=== PATIENT | male | born 1955 | race Caucasian/White ===

== ENCOUNTER 2016-06-30 18:50 | Observation (INO) ==
--- NOTE | 2016-06-30 19:04 | Emergency Department Note ---
Disposition Clinical Impression: Cocaine abuse Chest pain Qualifiers: Chest pain type: other chest pain Qualified Code(s): R07.89 - Other chest pain ; R07.8 - Other chest pain Disposition: Admitted As Inpatient Condition: Fair [facility]Primary Care Provider[facility] - Forms: ED Satisfaction Letter Chest Pain HPI - General Chief Complaint: ED Chest Pain Stated Complaint: CP Time Seen by Provider: 06/30/16 19:00 Source: patient, EMS Limitations: no limitations Vital Signs Reviewed: Yes Nursing Notes Reviewed: Yes - History of Present Illness HPI Narrative: I did see the patient immediately upon arrival and also spoke with the paramedics. The patient presents with complaints of chest pain which is intermittent for the last several days lasting for several seconds at a time and is sharp and midsternal with radiation to left shoulder but no pleuritic aspect. Pain is sometimes worse with exertion. No diaphoresis. He does not have radiation straight through to the back. He has been using cocaine and he does injected into the right arm was actually here and discharged 4 days ago after treatment for infection and the right arm for injecting cocaine. States has not used since that time. Social history: No alcohol. Family history: Positive for diabetes and heart disease Severity scale (1-10): 3 - Related Data Home Medications Medication Instructions Recorded Confirmed Aspirin 81 mg PO QAM 10/27/14 11/25/14 Lisinopril [Zestril] 5 mg PO QPM 10/27/14 11/25/14 Metoprolol [Lopressor] 25 mg PO BID 10/27/14 11/25/14 Simvastatin [Zocor] 20 mg PO QPM 10/27/14 11/25/14 Previous Rx's Medication Instructions Recorded OxyCODONE/APAP 5/325 [Percocet 1 each PO Q4H PRN #10 tablet 11/25/14 5/325] Phenazopyridine [Pyridium] 200 mg PO TID PRN #20 tablet 11/25/14 Benztropine [Cogentin] 1 mg PO BID #6 tablet 04/24/16 ChlorproMAZINE [Thorazine] 25 mg PO BID PRN #6 tablet 04/24/16 Ranitidine HCl [Zantac] 150 mg PO DAILY #30 tablet 04/24/16 Cephalexin [Keflex] 500 mg PO TID #21 capsule 06/26/16 Ibuprofen [Motrin] 600 mg PO Q8HR #21 tablet 06/26/16 Allergies Allergy/AdvReac Type Severity Reaction Status Date / Time Amoxicillin [From Augmentin] Allergy Mild Rash Verified 06/26/16 20:22 clavulanic acid Allergy Mild Rash Verified 06/26/16 20:22 [From Augmentin] Review of Systems: Constitutional: No fever Vision: No blurred vision ENT: No rhinorrhea Respiratory: No cough Allergic: No allergies : No blood in urine GI: No blood in stool Hematologic: No bruising Dermatologic: No skin rash Musculoskeletal: + pain in the extremities Neuro: No numbness of the extremities Chest Pain PMH - Past Medical History Medical history: Reports: coronary artery disease, diabetes, hypertension, myocardial infarction, renal disease, other Surgical history: Reports: other Psychiatric history: Reports: depression - Social History Smoking Status: Never smoker Alcohol use: Reports: none Drug use: Reports: cocaine, IVDU Physical Exam CONSTITUTIONAL: Well-appearing; well-nourished; A&O X 3, in no apparent distress HEAD: Normocephalic; atraumatic EYES: PERRL, no scleral icterus NOSE: The nose is normal in appearance without rhinorrhea NECK: No JVD or distended neck veins RESP: Normal chest excursion with respiration; breath sounds clear and equal bilaterally; no wheezes, rhonchi, or rales CARD: Regular rhythm, without murmurs, rub or gallop ABD: Non-distended; non-tender, soft, without rigidity, rebound or guarding,no pulsatile mass CHEST: No pain with palpation SKIN: Normal for age and race; warm and dry without diaphoresis ; no apparent lesions EXTREMITIES: Pulses are 2 plus and equal times 4 extremities, no peripheral edema or calf muscle pain. Examination of the right arm does show a hardened area on the right forearm on the volar aspect but no overlying erythema or crepitus or ecchymosis. States is significantly improved compared to when he was discharged. - General Limitations: no limitations General appearance: alert, in no apparent distress Course Vital Signs Temperature 98.6 F 06/30/16 18:51 Pulse Rate 73 06/30/16 18:51 Respiratory Rate 20 06/30/16 18:51 Blood Pressure 170/93 06/30/16 18:51 O2 Sat by Pulse Oximetry 97 06/30/16 18:51 Temperature 98.6 F 06/30/16 18:51 Pulse Rate 71 06/30/16 20:07 Respiratory Rate 18 06/30/16 20:07 Blood Pressure 155/79 06/30/16 20:07 O2 Sat by Pulse Oximetry 95 06/30/16 20:07 Oxygen Delivery Oxygen Delivery Nasal Cannula Chest Pain - MDM Narrative Medical decision making narrative: Labs including troponin, chest x-ray, the patient will be observed. I did review his EKG showing normal sinus rhythm with a rate of 69 without acute ischemic change. 190 I did review the patient's labs with negative troponin. Concern is the cocaine and chest pain and intermittent nature of the pain. I did speak with Dr. Floyd who is the hospitalist who accepts the patient for admission. Chest x-ray does not show acute change but does show some atelectasis. 2011 - Medical Records Medical records reviewed: Yes I reviewed the patient's medical records. - Lab Data Lab results reviewed: Yes I reviewed the patient's lab results. Result diagrams: 06/30/16 19:32 06/30/16 19:32 Lab Results 06/30/16 06/30/16 06/30/16 Range/Units 19:32 19:32 19:32 WBC 6.1 (4.3-11.1) K/mcL RBC 5.59 H (4.19-5.50) M/mcL Hgb 11.0 L (12.9-16.9) g/dL Hct 34.4 L (37.5-50.1) % MCV 61.5 L (83.0-100.0) fL MCH 19.7 L (28.0-33.3) pg MCHC 32.0 (31.6-35.5) g/dL RDW 18.4 H (11.5-14.5) % Plt Count 158 (140-400) K/mcL MPV 11.0 (9.4-12.4) fL Immature Plt Fraction 5.6 (1.1-6.1) % Sodium 135 L (136-145) mEq/L Potassium 4.1 (3.5-4.5) mEq/L Chloride 103 (98-109) mEq/L Carbon Dioxide 24 (19-29) mEq/L BUN 29 H (8-26) mg/dL Creatinine 1.31 H (0.72-1.25) mg/dL Est GFR ( Amer) > 60 (> 60) Est GFR (Non-Af Amer) 55 L (> 60) BUN/Creatinine Ratio 22 (6-26) Glucose 254 H (70-99) mg/dL Calculated Osmolality 294 (280-300) Calcium 8.4 L (8.6-10.8) mg/dL Troponin I 0.00 (0-0.03) ng/mL - Radiology Data Chest X-Ray 06/30/16 19:00 IMPRESSION: Linear atelectasis or scarring in the left lung base. Otherwise no acute cardiopulmonary findings. D/ / Sarah Multani MD / Sarah Multani MD Interpreting Provider: Sarah Multani MD I think it is right over there is a 20 is a 31 - EKG Data EKG attestation: Yes I reviewed and interpreted this EKG.
[2016-06-30 19:50] LABS: Basophils # 0.1 K/mcL (0.0-0.2); Basophils % 0.8 %; Eosinophils # 0.2 K/mcL (0.0-0.6); Eosinophils % 3.1 %; Hematocrit 34.4 % (37.5-50.1); Immature Platelets 5.6 % (1.1-6.1); Mean Corpuscular Hemoglobin 19.7 pg (28.0-33.3); Mean Corpuscular Volume 61.5 fL (83.0-100.0); Monocytes % 15.7 %; Platelet Count 158 K/mcL (140-400); Red Blood Count 5.59 M/mcL (4.19-5.50); Red Cell Distribution Width 18.4 % (11.5-14.5); Segmented Neutrophils % 63.4 %
[2016-06-30 19:51] LABS: Neutrophils # 3.9 K/mcL (1.6-8.9)
[2016-06-30 19:59] LABS: BUN/Creatinine Ratio 22 (6-26); Blood Urea Nitrogen 29 mg/dL (8-26); Calcium 8.4 mg/dL (8.6-10.8); Carbon Dioxide 24 mEq/L (19-29); Chloride 103 mEq/L (98-109); Glucose 254 mg/dL (70-99); Osmolality,Calculated 294 (280-300); Potassium 4.1 mEq/L (3.5-4.5); Sodium 135 mEq/L (136-145); eGFR For African Americans > 60 (> 60); eGFR For Non-African Americans 55 (> 60)
[2016-06-30 20:13] LABS: Microcytosis Present (Not Present); Platelet Estimate Normal (Normal)
[2016-06-30 20:15] LABS: Hypochromasia Present (Not Present); Ovalocytes 1+ (Not Present); Tear Drop Cells 1+ (Not Present)
[2016-06-30] MEDS ORDERED: Naloxone 0.4 MG/ML INJ IVP PRN (21:14)
[2016-06-30] MEDS ORDERED: D5% in Water 1,000 ML IVC PRN (21:48)
[2016-06-30] MEDS ORDERED: *HR* Dextrose 50 % in Water (Syg) 50 ML SYRINGE IVP PRN (21:48)
[2016-06-30] MEDS ORDERED: Dextrose Gel 15 GM PO PRN ×2 (21:48)
--- NOTE | 2016-06-30 21:56 | Internal Med History&Physical ---
<Yadi Mckinley - Last Filed: 06/30/16 22:57> Date of Encounter: 06/30/16 Time of Encounter: 21:51 Assessment and Plan (1) Chest pain Current visit: Yes Status: Acute 1she has been experiencing intermittent chest pain for proximally 2 days. Patient has recently been using cocaine as well he does have a past cardiac history with stent placement. patient states he used cocaine 4 days ago, unsure if this is accurate we will obtain tox screen. First cardiac troponin is negative we will continue to cycle cardiac troponins 2 continuous cardiac monitoring 3 nitroglycerin as needed for chest pain 4 oxygen as needed to maintain SPO2 greater 92% 5 we will obtain a lipid profile in a.m. 6 obtain cardiac echo 7 patient will be nothing by mouth for possible testing in am- 8 consult cardiology as needed 9 continue with aspirin- he had 2 baby aspirin today on the squad 10 will initiate on Lovenox since patient continues to have chest pain Qualifiers: Chest pain type: unspecified Qualified Code(s): R07.9 - Chest pain, unspecified (2) Cocaine abuse Current visit: Yes Status: Acute 1 patient has used cocaine 4 days ago he started to experience intermittent chest pain 2 days ago. Discussed with patient his cocaine use he states that he does not use all the time he has not used in several years and that he only uses when he is depressed. Discussed with patient the use of cocaine and cardiac dangers particularly since patient has a pre-existing cardiac disease. Patient verbalized understanding asked patient if he needed help with his drug use he states no. 2 continuous cardiac monitoring (3) Coronary artery disease Current visit: Yes Status: Acute 1 patient has a history of coronary artery disease with 2 drug-eluting stents. Patient has recently been using cocaine. He is presently on beta susana LIZABETH statin. Will continue with the aspirin plavix statin hold beta susana due to cocaine use. 2 nitroglycerin as needed for chest pain 3 oxygen as needed maintain a spo2 greater than 92% 4 continuous cardiac monitoring Qualifiers: Coronary Disease-Associated Artery/Lesion type: jena artery [place] vs. transplanted heart: jena heart Associated angina: angina presence unspecified Qualified Code(s): I25.10 - Atherosclerotic heart disease of jena coronary artery without angina pectoris (4) Hypertension Current visit: Yes Status: Acute 1we will continue with home medication however will hold beta susana due to recent cocaine use Qualifiers: Hypertension type: essential hypertension Qualified Code(s): I10 - Essential (primary) hypertension (5) Superficial thrombophlebitis Current visit: No Status: Acute Patient was seen in the ER on Monday as diagnosed superficial thrombosed phlebitis secondary to IV injection of cocaine. We will continue with Keflex. Qualifiers: Superficial thrombophlebitis-Involved body area: upper extremity Laterality : right Qualified Code(s): I80.8 - Phlebitis and thrombophlebitis of other sites (6) Diabetes Current visit: No Status: Chronic 1 Accu-Cheks before meals and at bedtime with sliding scale insulin 2 diabetic diet Qualifiers: Diabetes mellitus type: type 2 Diabetes mellitus complication status: with kidney complications Diabetes mellitus complication detail: with chronic kidney disease Diabetes mellitus snf insulin use: with snf use Chronic kidney disease stage: stage 3 (moderate) Qualified Code(s): E11.22 - Type 2 diabetes mellitus with diabetic chronic kidney disease; N18.3 - Chronic kidney disease, stage 3 (moderate); Z79.4 - assisted (current) use of insulin (7) CKD (chronic kidney disease) stage 2, GFR 60-89 ml/min Current visit: Yes Status: Chronic 1 creatinine 1.31 with continue to monitor creatinine 2 avoid nephrotoxins 3 monitor intake and output 4 daily weight 5 gentle IV fluids overnight Internal Medicine - H&P: HPI Chief complaint: Chest pain Admitted From: Emergency Dept Plans for Post Hospital Care: Home History of present illness: Mr. Suero is a 60 year old male past medical history of diabetes type 2 CK V stage III CAD with drug-eluting stent hypertension. Coronary the patient he has been experiencing intermittent chest pain over the past 2 days which he describes as sharp midsternal radiating to left shoulder lasting several seconds at a time and resolving on its own. Pain is aggravated with exertion and relieved with rest. No shortness of breath diaphoresis or nausea. Patient does admit to cocaine use he last used 4 days ago we injected into his right arm . He was seen in the ER 4 days ago due to infection right arm at the injection site. He states he has not used cocaine since that time he denies any fevers chills cough nausea vomiting diarrhea. Patient presented to the ER with the above complaints. Coronary ER records EKG revealed normal sinus rhythm with no ischemic changes. Vital signs upon presentation blood pressure is 170/93 pulse was 73 he was afebrile oxygen saturation was 97% chest x-ray with no acute changes lab work revealed creatinine of 1.3 on sodium 135 no leukocytosis troponin was 0. Patient was admitted for further workup and evaluation. Presently the patient denies any shortness of breath he has fleeting cp that last only seconds His lung sounds are clear heart sounds are regular S1-S2 with no rubs gallops murmurs clicks noted. He sinus rhythm on the monitor. Patient I discussed his cocaine use he states that he has not used in several years and that he just uses it off and on when he is upset. He has recently been depressed and that is why he used cocaine on Monday. Patient states at that time he did not care if he lived or however he denies any suicidal ideations at this time. Currently patient is hemodynamically stable review this case with Dr. brito who agrees with plan. Past Med Surg Social Fam HX - Past Medical History Medical history: coronary artery disease, diabetes, hypertension, myocardial infarction, renal disease, other Psychiatric history: depression - Past Surgical History Surgical History: other - Social History Smoking Status: Never smoker Smokeless Tobacco Status: No Alcohol use: none Drug use: cocaine, IVDU - Family History Mother Living Status: Hx Family Cardiac Disorders: Yes Brother Living Status: Hx Family Endocrine Disorder: Yes Internal Medicine - H&P: Meds Aspirin 81 mg PO QAM 10/27/14 [History] Lisinopril [Zestril] 5 mg PO QPM 10/27/14 [History] Metoprolol [Lopressor] 25 mg PO BID 10/27/14 [History] Simvastatin [Zocor] 20 mg PO QPM 10/27/14 [History] Cephalexin [Keflex] 500 mg PO TID #21 capsule 06/26/16 [Rx] Ibuprofen [Motrin] 600 mg PO Q8HR #21 tablet 06/26/16 [Rx] Clopidogrel [Plavix] 75 mg PO DAILY 06/30/16 [History] Allergies Amoxicillin [From Augmentin] Allergy (Mild, Verified 06/26/16 20:22) Rash clavulanic acid [From Augmentin] Allergy (Mild, Verified 06/26/16 20:22) Rash All Systems PM: A 10-system review of systems was performed and is negative for pertinent findings except as documented above in the HPI. - Constitutional Constitutional: no chills, no fever(s), no night sweats - EENT Eyes: no change in vision, no discharge, no pain, no photophobia Nose, mouth and throat: no dysphagia, no nasal discharge, no neck pain, no sore throat - Cardiovascular Cardiovascular ROS IM: chest pain, no diaphoresis, no dyspnea, no lightheadedness, no palpitations, no syncope - Respiratory Respiratory: no cough, no dyspnea, no wheezing, no excessive phlegm production - Gastrointestinal Gastrointestinal: no abdominal pain, no diarrhea, no hematemesis, no hematochezia, no melena, no nausea, no vomiting - Musculoskeletal Musculoskeletal ROS IM: no numbness, no tingling - Neurological Neurological ROS: no confusion, no convulsions, no focal weakness, no numbness, no tingling, no tremor(s) - Constitutional Vitals: Temp Pulse Resp BP Pulse Ox 98.0 F 66 15 168/88 96 06/30/16 20:46 06/30/16 20:46 06/30/16 20:46 06/30/16 20:46 06/30/16 20:46 General appearance: Present: A&O X 3, answers questions appropriately - Head Head exam: Present: atraumatic, normocephalic - Eye Eye exam: Present: PERRL, conjuntiva pink, sclera anicteric Pupils: Present: PERRL - Neck Neck exam general surgery: Present: supple, trachea midline. Absent: lymphadenopathy - Respiratory Respiratory exam: Present: CTAB. Absent: accessory muscle use, rales, rhonchi, wheezes - Cardiovascular Cardiovascular exam: Present: RRR, +S1, +S2. Absent: diastolic murmur, gallop, rubs, systolic murmur - GI/Abdominal GI/Abdominal exam: Present: normal bowel sounds, soft, no peritoneal signs. Absent: distended, tenderness - Extremities Exam Extremities exam: Present: warm, radial pulses palpable and symetrical. Absent : calf tenderness, cyanotic, pedal edema - Neurological Exam Neurological exam: Present: CN II-XII intact, oriented X3, no focal deficits. Absent: pronater drift, facial droop, speech deficit - Skin Skin exam: Present: dry, intact Internal Med - H&P Results - Labs CBC & Chem 7: 05/04/17 19:32 06/30/16 19:32 - EKG Data EKG shows normal: sinus rhythm - EKG Data Prior EKG available for review: yes When compared to previous EKG: there is no significant change - Diagnostic Studies Chest x-ray Additional comments: Chest X-Ray 06/30/16 19:00 IMPRESSION: Linear atelectasis or scarring in the left lung base. Otherwise no acute cardiopulmonary findings. D/ / Sarah Multani MD / Sarah Multani MD Interpreting Provider: Sarah Multani MD <Gavin Brito - Last Filed: 07/01/16 09:31> Date of Encounter: 06/30/16 Assessment and Plan (1) Acute kidney injury Current visit: Yes Status: Acute Treat with IV fluids; Hold ACEI (2) Hyperglycemia Current visit: Yes Status: Acute Insulin sliding scale Internal Medicine - H&P: HPI History of present illness: Mr. Suero is a 60 year old male All Systems PM: A 10-system review of systems was performed and is negative for pertinent findings except as documented above in the HPI. - Constitutional Vitals: Temp Pulse Resp BP Pulse Ox 97.7 F 66 15 128/76 95 07/01/16 03:31 07/01/16 03:31 07/01/16 03:31 07/01/16 03:31 07/01/16 03:31 Internal Med - H&P Results - Labs CBC & Chem 7: 07/01/16 01:03 07/01/16 01:03 Labs: Short CBC 07/01/16 Range/Units 01:03 WBC 4.4 (4.3-11.1) K/mcL Hgb 10.9 L (12.9-16.9) g/dL Hct 34.5 L (37.5-50.1) % Plt Count 139 L (140-400) K/mcL Neutrophils # 2.4 (1.6-8.9) K/mcL BMP 07/01/16 01:03 Sodium 134 L Potassium 4.6 H Chloride 102 Carbon Dioxide 25 BUN 29 H Creatinine 1.64 H Glucose 549 H* Calcium 8.4 L Cardiac Enzymes 07/01/16 Range/Units 01:03 Troponin I 0.00 (0-0.03) ng/mL - Attending Attestation I performed history and physical examination of the patient and discussed management with the ACTIVE DIRECTORY SYSTEMS ADMINISTRATOR / ANP. I reviewed the ACTIVE DIRECTORY SYSTEMS ADMINISTRATOR / ANPs note and agree with documented findings and plan of care. 60 Y/M with h/o DM, CAD s/p drug-eluting stent, hypertension and substance abuse. He apparently used cocaine on 06/27/16. He presents with intermittent chest pains for the last 2 days. Sternal pain radiating to left shoulder, sometimes unrelated to exertion. Sometimes worse on deep breathing. O/E: Lungs clear to auscultation. Cardiac regular rate and rhythm. No murmurs. EKG personally reviewed by me shows sinus rhythm with no acute ischemic changes. CXR reported linear atelectasis or scarring in the left lung base. Troponin is negative. Labs showed hyperglycemia, creatinine 1.31. A/P: Chest pain: Patient has intermittent chest pain, 3 days after the last use of cocaine. He is known to have coronary artery disease and has risk factors. We will trend his troponins. Cardiac stress test. Acute kidney Injury: Hold ACEI. IV fluids Hyperglycemia: sliding scale insulin
[2016-06-30] MEDS ORDERED: 0.9 % Sodium Chloride 1,000 ML IVC SCH (23:00)
[2016-06-30] MEDS: *HR* Enoxaparin 100 MG/ML SYRINGE SQ SCH (23:40)
[2016-07-01 00:14] LABS: Amphetamine Screen,Urine Negative ng/mL (Cutoff=1000); Barbiturate Screen,Urine Negative ng/mL (Cutoff=200); Benzodiazepines Screen,Urine Negative ng/mL (Cutoff=200); Cannabinoid Screen,Urine Negative ng/mL (Cutoff = 50); Cocaine Screen,Urine Positive ng/mL (Cutoff= 300); Opiate Screen,Urine Negative ng/mL (Cutoff=300); Phencyclidine Screen,Urine Negative ng/mL (Cutoff=25)
[2016-07-01] MEDS ORDERED: Insulin LISPRO 300 UNITS/3 ML VIAL SQ ONE ×2 (00:15→02:01)
[2016-07-01 01:19] LABS: Basophils % 0.7 %; Eosinophils # 0.2 K/mcL (0.0-0.6); Eosinophils % 3.7 %; Hematocrit 34.5 % (37.5-50.1); Hemoglobin 10.9 g/dL (12.9-16.9); Immature Granulocytes % 0.5 % (0-4); Immature Platelets 6.5 % (1.1-6.1); Lymphocytes # 1.1 K/mcL (0.6-4.6); Lymphocytes % 23.8 %; Mean Corpuscular HGB Conc 31.6 g/dL (31.6-35.5); Mean Corpuscular Hemoglobin 19.3 pg (28.0-33.3); Mean Platelet Volume 10.4 fL (9.4-12.4); Monocytes # 0.8 K/mcL (0.0-1.3); Monocytes % 17.6 %; Neutrophils # 2.4 K/mcL (1.6-8.9); Platelet Count 139 K/mcL (140-400); Red Blood Count 5.66 M/mcL (4.19-5.50); Red Cell Distribution Width 17.8 % (11.5-14.5); Segmented Neutrophils % 53.7 %
[2016-07-01 01:34] LABS: Calcium 8.4 mg/dL (8.6-10.8); Chol/HDL Ratio 2.5 (0-4.9); Potassium 4.6 mEq/L (3.5-4.5)
[2016-07-01 01:58] LABS: Anisocytosis 1+ (Not Present); Microcytosis Present (Not Present); Platelet Estimate Slight Decrease (Normal)
[2016-07-01 01:59] LABS: Reactive Lymphocytes Present (Not Present)
[2016-07-01] MEDS ORDERED: 0.9 % Sodium Chloride 500 ML IVC ONE (03:54)
[2016-07-01] MEDS: 0.9 % Sodium Chloride 1,000 ML IVC SCH ×2 (05:32→13:07)
[2016-07-01] MEDS ORDERED: Aspirin 81 MG TAB.CHEW PO SCH (09:00)
[2016-07-01] MEDS: cephALEXin 500 MG CAPSULE PO SCH ×2 (09:55→17:23)
[2016-07-01] MEDS: *HR* Enoxaparin 100 MG/ML SYRINGE SQ SCH (09:56)
[2016-07-01] MEDS: Insulin LISPRO 300 UNITS/3 ML VIAL SQ SCH ×3 (09:57→17:16)
[2016-07-01 10:06] LABS: INR 1.1; Prothrombin Time 12.1 Seconds (9.4-12.1)
--- NOTE | 2016-07-01 10:47 | Nuclear Medicine Stress Report ---
Exercise Nuclear Stress Name: Reyes Suero Date of Study: 07/01/2016 Date: 1955 Ht: 68.0 in Medical Record#: [id number] Age: 60 Wt: 200.0 lb Gender: Male Order #: [id number] Location: [facility] Room: [facility] Supervising Provider: Kamron Eastman CNP Reading Physician: Donis Jaramillo DO, PEGGY, ONOFRE KABA Ordering Physician: Lucrecia Leung CNP Primary Care Physician: [facility] Stress Technologist: Yahaira Falcon, GM/SVP [employer] School Psychometrist: Charly Awad Indications: Chest Pain Impression: Exercise ECG is negative for ischemia. Chest discomfort reported during exercise. Gated EF = 73%. Small sized, moderate intensity, fixed apical lateral defect. Wall motion is normal. These findings are consistent with artifact. Perfusion imaging was negative for ischemia or infarct. History: Hypertension Diabetes Prior PCI Stress Test Summary: Stress Test Type: Treadmill Protocol: Herson Baseline Information: Initial Heart Rate: 85 Blood Pressure: 134/62 Stress Information: Stress Time: 8 min 00 sec Test Terminated Due to (primary): Dyspnea Maximum Blood Pressure: 192/84 Maximum Heart Rate: 140 Percent Maximum Heart Rate Achieved: 89 Double Product: 49124 METS Reached: 10.1 Symptoms: Shortness of breath, Chest pain Nuclear Summary: SPECT myocardial perfusion imaging using Tc99m Sestamibi given intravenously was performed at rest and following cardiac stress testing. The resting images were obtained following initial dose of 10.2 mCi. Following stress an additional dose of 33.7 mCi was given at peak exercise or 30 seconds post regadenoson infusion. Medication Given: Time Medication Dose Units Route Findings: Stress Note * Resting ECG demonstrated normal sinus rhythm. * No baseline arrhythmias were noted. * Exercise ECG is negative for ischemia. * No arrhythmias were noted during stress. * The exercise capacity was good. * Chest discomfort reported during exercise. Hemodynamic responses * Normal hemodynamic responses to exercise. Study Quality * Study quality is average. Gated EF % * Gated EF = 73%. Left Ventricle * The left ventricle is not dilated. * LVEDV = 96 mL. NORMALS * Normal wall motion. Apical Perfusion Rest * The apical lateral segment shows a moderate reduction in perfusion. Apical Perfusion Stress * The apical lateral segment shows a moderate reduction in perfusion. TID * No evidence of transient ischemic dilatation. TID ratio * TID ratio = 1.11. Lung Uptake * There is no evidence of increase lung uptake. Updated by Donis Jaramillo DO, PEGGY, SENDY, ONOFRE on 07/01/2016 10:39:43 AM electronically signed on 07/01/2016 10:42:27 AM with status of Final
[2016-07-01] MEDS ORDERED: 0.9 % Sodium Chloride 1,000 ML IVC ONE (12:36)
--- NOTE | 2016-07-01 13:18 | ECHO - Doppler Report ---
Echocardiogram Name: Reyes Suero Date of Study: 07/01/2016 Date: 1955 Ht: 68.0 in Medical Record#: [id number] Age: 60 Wt: 200.0 lb Gender: Male BSA: 2.04 Order #: [id number] Location: [facility] Room #: [id number] Reading Physician: Donis Jaramillo DO, SENDY WOODS Research Support Specialist: Dada Benavides RN Ordering Physician: Yadi Mckinley CNP Primary Physician: [facility] Indications: Chest pain Impressions: LVEF 60-65%. Normal LV chamber size, wall thickness and function. Mild left ventricular diastolic dysfunction. Normal right ventricular structure and function. No evidence of pulmonary hypertension. No significant valvular dysfunction. Left Ventricular Wall Motion: Rest Echo Findings All wall segments showed normal motion. Findings: Study Quality * Technically adequate exam. ECG Findings * Normal sinus rhythm. Left Ventricle * LVEF 60-65%. * Normal LV chamber size, wall thickness and function. * Mild left ventricular diastolic dysfunction. Right Ventricle * Normal right ventricular structure and function. Left Atrium * Normal left atrial size. Right Atrium * Normal right atrial size. Interatrial Septum * Interatrial septum not well evaluated. Aortic Valve * Trileaflet aortic valve with normal function. * No aortic stenosis. * No aortic regurgitation. Mitral Valve * Normal mitral valve structure and function. * No mitral regurgitation. * No mitral stenosis. Tricuspid Valve * Normal tricuspid valve structure and function. * Trace tricuspid regurgitation. * No evidence of pulmonary hypertension. Pulmonic Valve * Pulmonic valve is not well visualized. * No pulmonic regurgitation. Aorta * Normally sized aortic root. Pericardium * The pericardium appears normal. IVC * Normal IVC dimensions and inspiratory collapse. Pulmonary Artery * Normal visualized portions of the main pulmonary artery. History Hypertension Diabetes Hypercholesteremia Family History of CAD History of CAD/PTCA Myocardial Infarction Measurements: BP: 128/ 76 2D Normal Values RVIDd: 3.70 cm <2.7 cm IVSd: 1.20 cm 0.6 - 1.0 cm LVIDd: 4.30 cm 3.7 - 5.6 cm LVPWd: 1.20 cm 0.6 - 1.1 cm LVIDs: 3.00 cm 1.5 - 3.6 cm LA: 4.40 cm 2.0 - 4.0cm %FS: 30.20 cm >25 % LVOT Diam: 2.00 cm LA volume: 58 Mitral Valve Peak E:1.01 m/sec Peak A:1.00 m/sec E/A Ratio:1 Peak E' Lat Lincoln:9.36 cm/s Peak E' Med [place]:7.31 cm/s E/E' Lat Ratio:10.8 E/E' Med Ratio:13.8 Tricuspid Valve TV Regurg Peak Grad: 16.00mmHg TV Regurg Peak Lincoln: 2.01m/sec Updated by Donis Jaramillo DO, FACQing, SENDY, ONOFRE on 07/01/2016 1:12:47 PM electronically signed on 07/01/2016 1:13:30 PM with status of Final Wall Motion Solitario: 1=Normal, 2=Hypokinesis, 3=Akinesis, 4=Dyskinesis, 5=Aneurysmal, 6=Hyperkinetic, X=Not Visualized (Blank)=Missing
[2016-07-01 16:02] VITALS: BP 167/89
--- NOTE | 2016-07-01 16:39 | Discharge Summary ---
Date of Encounter: 07/01/16 Time of Encounter: 14:30 (and 1600) - Discharge Diagnosis (1) Chest pain Priority: Primary Status: Resolved Comments: Patient denied chest pain on day of discharge. Acute coronary syndrome and acute PE ruled out. Qualifiers: Chest pain type: unspecified Qualified Code(s): R07.9 - Chest pain, unspecified (2) Costochondral chest pain Priority: Primary Status: Resolved (3) Anemia Priority: Secondary Status: Chronic Comments: Mild, stable. Follow-up outpatient (4) Diabetes Priority: Secondary Status: Chronic Comments: Uncontrolled. Patient was unable to state what his glucoses usually run. Glucose over 500 upon presentation, much better controlled throughout this admission; 115 upon discharge. Recommend follow-up closely outpatient. 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 Recommend continue statin and low-cholesterol diet. Qualifiers: Hyperlipidemia type: unspecified Qualified Code(s): E78.5 - Hyperlipidemia , unspecified (6) Cocaine abuse Priority: Secondary Status: Chronic Comments: Tox screen positive cocaine abuse. Patient saying this is intermittent and does not use very often. He declined counseling resources. (7) Superficial thrombophlebitis Priority: Secondary Status: Chronic Comments: resolving; s/p intravenous injection of cocaine. Continue Keflex Qualifiers: Superficial thrombophlebitis-Involved body area: upper extremity Laterality : right Qualified Code(s): I80.8 - Phlebitis and thrombophlebitis of other sites (8) Coronary artery disease Priority: Secondary Status: Chronic Qualifiers: Coronary Disease-Associated Artery/Lesion type: [place] artery [place] vs. transplanted heart: [place] heart Associated angina: angina presence unspecified Qualified Code(s): I25.10 - Atherosclerotic heart disease of [place] coronary artery without angina pectoris (9) Hypertension Priority: Secondary Status: Chronic Comments: Continue home medications, check blood pressure daily, follow-up outpatient Qualifiers: Hypertension type: essential hypertension Qualified Code(s): I10 - Essential (primary) hypertension (10) Acute kidney injury Priority: Primary Status: Acute Comments: Likely resolved prior to disposition, he did get a 1 L bolus. Follow-up outpatient - Discharge Medications Home Medications: Aspirin 81 mg PO QAM 10/27/14 [History] Lisinopril [Zestril] 5 mg PO QPM 10/27/14 [History] Metoprolol [Lopressor] 25 mg PO BID 10/27/14 [History] Simvastatin [Zocor] 20 mg PO QPM 10/27/14 [History] Cephalexin [Keflex] 500 mg PO TID #21 capsule 06/26/16 [Rx] Ibuprofen [Motrin] 600 mg PO Q8HR #21 tablet 06/26/16 [Rx] Clopidogrel [Plavix] 75 mg PO DAILY 06/30/16 [History] Allergies/Adverse Reactions: Allergies Amoxicillin [From Augmentin] Allergy (Mild, Verified 06/26/16 20:22) Rash clavulanic acid [From Augmentin] Allergy (Mild, Verified 06/26/16 20:22) Rash Procedures/tests Complete & Pending: Procedures Performed prior 72 hours Category Date Time Status CTA chest [CT angio chest] [CT] Stat Cat Scan 07/01/16 11:46 Completed NM misty perf SPECT multi [NM] Routine Exams 07/01/16 07:19 Taken ECG 12 lead ECG [ECG] AM 0600 Y 07/01/16 06:00 Ordered EV echocardiogram Routine Y 06/30/16 21:17 Completed SP exercise nuclear stress Routine Y 07/01/16 06:45 Completed Date of admission: 06/30/16 20:21 [facility] care physician: [facility] Consults: 06/30/16 22:33 Consult to Nurse Navigator [CONS] Routine Comment: Discharging clinician: Lucrecia Leung Anticipated date of discharge: 07/01/16 - Patient Status Disposition: Home, Self-Care Condition: Fair Functional capacity at discharge: independent ambulation Overall status at discharge: patient is back to baseline - Discharge Instructions Follow Up With: [facility] [Primary Care Provider] - Additional Instructions: Follow-up with primary care provider within one to 2 weeks - Diet and Activity Activity: increase activity as tolerated Diet: diabetic diet, low fat, low cholesterol, low salt diet Hospital course: Mr. Suero is a 60 year old male with past medical history of uncontrolled diabetes, CAD status post stent, hypertension, cocaine and IVDU. Patient presented to the emergency department chief complaint chest pain 2 days described as sharp, mid sternally located, radiating to his left shoulder, and lasting several seconds at a time and resolving on its own. He stated the pain was aggravated with exertion and relieved with rest. He denies shortness of breath, diaphoresis, or nausea. Patient freely admitted to cocaine use but stated he had not used for 4 days prior to presentation. He was seen in the ER 4 days prior to presentation due to an infected right arm secondary to injection site of his cocaine. He was sent home on Keflex at that time. Workup in the emergency department revealing hypertension. Patient was admitted to the hospitalist service for further evaluation and management. Chest x-ray revealing chronic scarring to left lower lobe without acute processes. D-dimer elevated so a CTA was obtained which ruled out a PE or other acute pulmonary abnormalities. Patient had an echocardiogram that was unremarkable with ejection fraction of 60-65%. Patient was euvolemic on examination throughout this admission denied shortness of breath above his norm. He had a exercise nuclear stress test that was negative for ischemia or infarct. Acute coronary syndrome or acute pulmonic processes ruled out. Patient's chest pain subsided during admission. He was hyperglycemic upon presentation with initial glucose over 500, glucose in the low 100s at time of discharge. Patient did decline substance counseling resources. He was able to tolerate a regular diet prior to discharge. He did have a mild acute kidney injury noted. Of note, patient does not appear to have chronic kidney disease. He was given a liter bolus prior to discharge, recommend follow-up outpatient. He was discharged home in stable condition with close outpatient follow-up recommended. ITS Impressions Chest X-Ray 06/30/16 19:00 IMPRESSION: Linear atelectasis or scarring in the left lung base. Otherwise no acute cardiopulmonary findings. D/ / Sarah Multani MD / Sarah Multani MD Interpreting Provider: Sarah Multani MD Chest CTA 07/01/16 11:46 IMPRESSION: No evidence of pulmonary embolism or acute pulmonary abnormality. D/ / Ean Jennings MD / Ean Jennings MD Interpreting Provider: Ean Jennings MD Echocardiogram impressions: LVEF 60-65%. Normal LV chamber size, wall thickness and function. Mild left ventricular diastolic dysfunction. Normal right ventricular structure and function. No evidence of pulmonary hypertension. No significant valvular dysfunction. Exercise nuclear stress test impression: Exercise ECG is negative for ischemia. Chest discomfort reported during exercise. Gated ejection fraction equals 73% . Small sized, moderate intensity, fixed apical lateral defect. Wall motion is normal. These findings are consistent with artifact. Perfusion imaging was negative for ischemia or infarct. - Time Spent with Patient Total time spent providing and/or coordinating discharge services: - Constitutional Vitals: Temp Pulse Resp BP Pulse Ox 97.9 F 67 16 167/89 95 07/01/16 16:01 07/01/16 16:01 07/01/16 16:01 07/01/16 16:01 07/01/16 16:01 General appearance: Present: A&O X 3, pleasant, no acute distress, answers questions appropriately - Head Head exam: Present: atraumatic, normocephalic - Eye Eye exam: Present: PERRL, conjuntiva pink, sclera anicteric Pupils: Present: PERRL - Neck Neck exam general surgery: Present: supple, trachea midline. Absent: lymphadenopathy - Respiratory Respiratory exam: Present: CTAB. Absent: accessory muscle use, rales, respiratory distress, rhonchi, wheezes - Cardiovascular Cardiovascular exam: Present: RRR, +S1, +S2. Absent: diastolic murmur, gallop, rubs, systolic murmur - GI/Abdominal GI/Abdominal exam: Present: normal bowel sounds, soft, no peritoneal signs. Absent: distended, tenderness - Extremities Exam Extremities exam: Present: warm, radial pulses palpable and symetrical. Absent : calf tenderness, cyanotic, pedal edema - Neurological Exam Neurological exam: Present: alert, CN II-XII intact, normal gait, oriented X3, no focal deficits, strengths equal and symetr throughout. Absent: pronater drift, facial droop, speech deficit - Skin Skin exam: Present: dry, intact, normal color, warm
--- NOTE | 2016-07-01 17:44 | Electrocardiograph Report ---
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
[2016-07-01] MEDS ORDERED: Insulin LISPRO 300 UNITS/3 ML VIAL SQ SCH (21:00)
== END 2016-07-01 18:02 | disposition home or self-care (01) ==
LOC: 3BNU 18:50 → EMEROO 18:50 → 3BNU 20:34
PROVIDERS: ADMIT Nurse Practitioner Acute Care; ATTEND Nurse Practitioner Family

== ENCOUNTER 2017-12-19 23:29 | Observation (INO) ==
--- NOTE | 2017-12-19 23:51 | Emergency Department Note ---
Disposition Clinical Impression: Chest pain Qualifiers: Chest pain type: unspecified Qualified Code(s): R07.9 - Chest pain, unspecified Disposition: Admitted As Inpatient Condition: Good [facility]errals: [facility] [Primary Care Provider] - Forms: ED Satisfaction Letter Chest Pain HPI - General Chief Complaint: ED Chest Pain Stated Complaint: cp intermittently x2yrs/homeless Time Seen by Provider: 12/19/17 23:48 Source: patient Limitations: no limitations Vital Signs Reviewed: Yes Nursing Notes Reviewed: Yes - History of Present Illness HPI Narrative: 62-year-old male presents emergency department with concern for chest pain. Patient has history of stents. At 2200, he started experiencing chest discomfort. Said it was tight and went to his left arm. Patient reported that he is not having chest pain at time of arrival to the emergency department. States that the chest. He did have, similar to when he had a previous heart attack. Patient not complaining of any nausea or diaphoresis with it. Denies any abdominal pain or back pain. Severity scale (1-10): 3 - Related Data Home Medications Medication Instructions Recorded Confirmed Aspirin 81 mg PO QAM 10/27/14 06/30/16 Lisinopril [Zestril] 5 mg PO QPM 10/27/14 06/30/16 Metoprolol [Lopressor] 25 mg PO BID 10/27/14 06/30/16 Simvastatin [Zocor] 20 mg PO QPM 10/27/14 06/30/16 Clopidogrel [Plavix] 75 mg PO DAILY 06/30/16 06/30/16 Previous Rx's Medication Instructions Recorded Cephalexin [Keflex] 500 mg PO TID #21 capsule 06/26/16 Ibuprofen [Motrin] 600 mg PO Q8HR #21 tablet 06/26/16 Benzonatate [Tessalon] 100 mg PO TID #20 capsule 08/23/16 Guaifenesin [Mucus ER] 600 mg PO Q12H #20 tab.er.12h 11/28/17 Loratadine [Claritin] 10 mg PO DAILY #10 capsule 11/28/17 Allergies Allergy/AdvReac Type Severity Reaction Status Date / Time Amoxicillin [From Augmentin] Allergy Mild Rash Verified 12/30/16 07:34 clavulanic acid Allergy Mild Rash Verified 12/30/16 07:34 [From Augmentin] All systems ED: reviewed and negative except as stated. Review of Systems: As Per HPI Constitutional: Denies: fever Cardiovascular: Reports: chest pain. Denies: palpitations Respiratory: Denies: dyspnea Gastrointestinal: Denies: abdominal pain, nausea, vomiting Genitourinary: Denies: dysuria Musculoskeletal: Denies: back pain Neurological: Denies: headache Chest Pain PMH - Past Medical History Medical history: Reports: coronary artery disease, CVA, diabetes, hypertension, myocardial infarction, renal disease Surgical history: Reports: other Psychiatric history: Reports: anxiety, depression - Social History Smoking Status: Never smoker Alcohol use: Reports: none Drug use: Reports: cocaine, IV Drug Use Physical Exam - General Limitations: no limitations General appearance: alert, in no apparent distress - Head Head exam: normocephalic - Eye Eye exam: Present: EOMI - ENT ENT exam: mucous membranes moist - Neck Neck exam: Present: trachea midline - Chest Chest inspection: Present: symmetric chest wall rise - Respiratory Respiratory exam: Present: normal lung sounds bilaterally. Absent: respiratory distress, accessory muscle use - Cardiovascular Cardiovascular exam: Present: regular rate, normal rhythm, normal heart sounds - Abdominal Exam Abdominal exam: Present: soft, Non-Tender. Absent: distention, guarding, rebound, rigidity - Extremities Exam Extremities exam: Present: normal capillary refill - Back Exam Back exam: Present: full ROM - Neurological Exam Neurological exam: Present: alert, oriented X3 - Psychiatric Psychiatric exam: Present: normal affect, normal mood - Skin Skin exam: Present: warm, dry, intact, normal color. Absent: diaphoresis Course Vital Signs Temperature 97.7 F 12/19/17 23:34 Pulse Rate 73 12/19/17 23:34 Respiratory Rate 16 12/19/17 23:34 Blood Pressure 166/97 12/19/17 23:34 O2 Sat by Pulse Oximetry 96 12/19/17 23:34 Temperature 97.7 F 12/19/17 23:34 Pulse Rate 65 12/20/17 01:10 Respiratory Rate 20 12/20/17 01:10 Blood Pressure 144/83 12/20/17 01:10 O2 Sat by Pulse Oximetry 94 12/20/17 01:10 Oxygen Delivery Oxygen Delivery Room Air Chest Pain - MDM Narrative Medical decision making narrative: 62-year-old male presents emergency Department with concern for chest pain. Patient has extensive history of coronary artery disease with stents. EKG not reveal any ischemic ST changes. Troponin was negative. Chest x-ray did not reveal any acute abnormality per radiology. Creatinine is normal. Patient has a hemoglobin of 11.9, has been lower in the past. Patient was given aspirin here in the emergency department. Patient chest pain-free at time of admission to the hospitalist, Trev David. - Lab Data Result diagrams: 12/20/17 00:34 12/20/17 00:34 Lab Results 12/20/17 12/20/17 12/20/17 Range/Units 00:34 00:34 00:34 WBC 8.7 (4.3-11.1) K/mcL RBC 6.22 H (4.19-5.50) M/mcL Hgb 11.9 L (12.9-16.9) g/dL Hct 38.8 (37.5-50.1) % MCV 62.4 L (83.0-100.0) fL MCH 19.1 L (28.0-33.3) pg MCHC 30.7 L (31.6-35.5) g/dL RDW 18.6 H (11.5-14.5) % Plt Count 146 (140-400) K/mcL MPV 10.2 (9.4-12.4) fL Immature Gran % 0.5 (0-4) % Seg Neutrophils % 58.3 % Lymphocytes % 22.6 % Monocytes % 12.1 % Eosinophils % 5.7 % Basophils % 0.8 % Neutrophils # 5.1 (1.6-8.9) K/mcL Lymphocytes # 2.0 (0.6-4.6) K/mcL Monocytes # 1.1 (0.0-1.3) K/mcL Eosinophils # 0.5 (0.0-0.6) K/mcL Basophils # 0.1 (0.0-0.2) K/mcL Toxic Granulation Present A (Not Present) Platelet Estimate Normal (Normal) Immature Plt Fraction 7.4 H (1.1-6.1) % Hypochromasia Present A (Not Present) Anisocytosis 1+ A (Not Present) Microcytosis Present A (Not Present) Sodium 138 (136-145) mEq/L Potassium 3.9 (3.5-5.1) mEq/L Chloride 108 H (98-107) mEq/L Carbon Dioxide 23 (23-29) mEq/L BUN 20 (8-23) mg/dL Creatinine 1.18 (0.70-1.30) mg/dL Est GFR ( Amer) > 60 (> 60) Est GFR (Non-Af Amer) > 60 (> 60) BUN/Creatinine Ratio 17 (6-26) Glucose 110 H (70-105) mg/dL Calculated Osmolality 289 (280-300) Calcium 9.2 (8.6-10.3) mg/dL Troponin I < 0.03 (< 0.04) ng/mL B-Natriuretic Peptide 27 (Less than 100) pg/mL - EKG Data EKG attestation: Yes I reviewed and interpreted this EKG. EKG results narrative: 22:57 Heart rate 64 bpm, ID interval 187 ms, QRS duration 104 ms, QT interval 434 ms, left axis deviation. Sinus rhythm with a ventricular rate of 64 bpm. Patient does have left anterior fascicular block. Same as previous EKG obtained in March of this year.
[2017-12-20 00:48] LABS: Basophils # 0.1 K/mcL (0.0-0.2); Basophils % 0.8 %; Eosinophils # 0.5 K/mcL (0.0-0.6); Eosinophils % 5.7 %; Hematocrit 38.8 % (37.5-50.1); Hemoglobin 11.9 g/dL (12.9-16.9); Immature Granulocytes % 0.5 % (0-4); Immature Platelets 7.4 % (1.1-6.1); Lymphocytes % 22.6 %; Mean Corpuscular HGB Conc 30.7 g/dL (31.6-35.5); Mean Corpuscular Hemoglobin 19.1 pg (28.0-33.3); Mean Corpuscular Volume 62.4 fL (83.0-100.0); Mean Platelet Volume 10.2 fL (9.4-12.4); Monocytes # 1.1 K/mcL (0.0-1.3); Monocytes % 12.1 %; Neutrophils # 5.1 K/mcL (1.6-8.9); Platelet Count 146 K/mcL (140-400); Red Blood Count 6.22 M/mcL (4.19-5.50); Red Cell Distribution Width 18.6 % (11.5-14.5); Segmented Neutrophils % 58.3 %
[2017-12-20 01:06] LABS: BUN/Creatinine Ratio 17 (6-26); Blood Urea Nitrogen 20 mg/dL (8-23); Calcium 9.2 mg/dL (8.6-10.3); Carbon Dioxide 23 mEq/L (23-29); Chloride 108 mEq/L (98-107); Glucose 110 mg/dL (70-105); Osmolality,Calculated 289 (280-300); Potassium 3.9 mEq/L (3.5-5.1); Sodium 138 mEq/L (136-145); eGFR For Non-African Americans > 60 (> 60)
[2017-12-20 01:07] LABS: Anisocytosis 1+ (Not Present); Hypochromasia Present (Not Present); Troponin I < 0.03 ng/mL (< 0.04)
[2017-12-20 01:08] LABS: Microcytosis Present (Not Present); Platelet Estimate Normal (Normal); Toxic Granulation Present (Not Present)
[2017-12-20] MEDS ORDERED: Aspirin 81 MG TAB.CHEW PO STA (02:40)
--- NOTE | 2017-12-20 02:52 | Emergency Department Note ---
Disposition Clinical Impression: Chest pain Qualifiers: Chest pain type: unspecified Qualified Code(s): R07.9 - Chest pain, unspecified Disposition: Admitted As Inpatient Condition: Good [facility]errals: [facility] [Primary Care Provider] - Forms: ED Satisfaction Letter General Adult HPI - General Chief complaint: ED Chest Pain Stated complaint: cp intermittently x2yrs/homeless Time Seen by Provider: 12/19/17 23:48 Source: patient Limitations: no limitations Nursing Notes Reviewed: Yes Vital Signs Reviewed: Yes - History of Present Illness Pain Scale: 3 - Related Data Home Medications Medication Instructions Recorded Confirmed Aspirin 81 mg PO QAM 10/27/14 06/30/16 Lisinopril [Zestril] 5 mg PO QPM 10/27/14 06/30/16 Metoprolol [Lopressor] 25 mg PO BID 10/27/14 06/30/16 Simvastatin [Zocor] 20 mg PO QPM 10/27/14 06/30/16 Clopidogrel [Plavix] 75 mg PO DAILY 06/30/16 06/30/16 Previous Rx's Medication Instructions Recorded Cephalexin [Keflex] 500 mg PO TID #21 capsule 06/26/16 Ibuprofen [Motrin] 600 mg PO Q8HR #21 tablet 06/26/16 Benzonatate [Tessalon] 100 mg PO TID #20 capsule 08/23/16 Guaifenesin [Mucus ER] 600 mg PO Q12H #20 tab.er.12h 11/28/17 Loratadine [Claritin] 10 mg PO DAILY #10 capsule 11/28/17 Allergies Allergy/AdvReac Type Severity Reaction Status Date / Time Amoxicillin [From Augmentin] Allergy Mild Rash Verified 12/30/16 07:34 clavulanic acid Allergy Mild Rash Verified 12/30/16 07:34 [From Augmentin] Past Medical History - Past Medical History Medical history: Reports: coronary artery disease, CVA, diabetes, hypertension, myocardial infarction, renal disease Surgical history: Reports: other Psychiatric history: Reports: anxiety, depression - Social History Smoking Status: Never smoker Smokeless Tobacco Status: No Alcohol use: Reports: none Drug use: Reports: cocaine, IV Drug Use Physical Exam - General Limitations: no limitations General appearance: alert, in no apparent distress Course Vital Signs Temperature 97.7 F 12/19/17 23:34 Pulse Rate 73 12/19/17 23:34 Respiratory Rate 16 12/19/17 23:34 Blood Pressure 166/97 12/19/17 23:34 O2 Sat by Pulse Oximetry 96 12/19/17 23:34 Temperature 97.7 F 12/19/17 23:34 Pulse Rate 73 12/20/17 02:53 Respiratory Rate 17 12/20/17 02:53 Blood Pressure 126/66 12/20/17 02:53 O2 Sat by Pulse Oximetry 96 12/20/17 02:53 Oxygen Delivery Oxygen Delivery Room Air Medical Decision Making - Lab Data Lab results reviewed: Yes I reviewed the patient's lab results. Result diagrams: 12/20/17 00:34 12/20/17 00:34 Lab Results 12/20/17 12/20/17 12/20/17 Range/Units 00:34 00:34 00:34 WBC 8.7 (4.3-11.1) K/mcL RBC 6.22 H (4.19-5.50) M/mcL Hgb 11.9 L (12.9-16.9) g/dL Hct 38.8 (37.5-50.1) % MCV 62.4 L (83.0-100.0) fL MCH 19.1 L (28.0-33.3) pg MCHC 30.7 L (31.6-35.5) g/dL RDW 18.6 H (11.5-14.5) % Plt Count 146 (140-400) K/mcL MPV 10.2 (9.4-12.4) fL Immature Gran % 0.5 (0-4) % Seg Neutrophils % 58.3 % Lymphocytes % 22.6 % Monocytes % 12.1 % Eosinophils % 5.7 % Basophils % 0.8 % Neutrophils # 5.1 (1.6-8.9) K/mcL Lymphocytes # 2.0 (0.6-4.6) K/mcL Monocytes # 1.1 (0.0-1.3) K/mcL Eosinophils # 0.5 (0.0-0.6) K/mcL Basophils # 0.1 (0.0-0.2) K/mcL Toxic Granulation Present A (Not Present) Platelet Estimate Normal (Normal) Immature Plt Fraction 7.4 H (1.1-6.1) % Hypochromasia Present A (Not Present) Anisocytosis 1+ A (Not Present) Microcytosis Present A (Not Present) Sodium 138 (136-145) mEq/L Potassium 3.9 (3.5-5.1) mEq/L Chloride 108 H (98-107) mEq/L Carbon Dioxide 23 (23-29) mEq/L BUN 20 (8-23) mg/dL Creatinine 1.18 (0.70-1.30) mg/dL Est GFR ( Amer) > 60 (> 60) Est GFR (Non-Af Amer) > 60 (> 60) BUN/Creatinine Ratio 17 (6-26) Glucose 110 H (70-105) mg/dL Calculated Osmolality 289 (280-300) Calcium 9.2 (8.6-10.3) mg/dL Troponin I < 0.03 (< 0.04) ng/mL B-Natriuretic Peptide 27 (Less than 100) pg/mL - Radiology Data Radiology results reviewed: Yes I reviewed the patient's radiology results. Chest X-Ray 12/19/17 23:50 IMPRESSION: No acute process. D/ / Alli Galindo MD / Alli Galindo MD Interpreting Provider: Alli Galindo MD - EKG Data EKG #1 EKG attestation: Yes I reviewed and interpreted this EKG. EKG results narrative: EKG shows a normal sinus rhythm with ventricular rate is 64. No acute ST segment elevation or depression. No arrhythmia or ectopy. Attestation Statement - Attestation Attestation: I, Jamison Mathews MD, personally evaluated this patient and discussed their management with the resident physician. I reviewed the resident's note and agree with the documented findings, medical decision making, and plan of care. 62-year-old male with history of coronary artery disease and coronary artery stents presents to the emergency department with a complaint of some left sided chest pain radiating up into the left shoulder which started about 10 PM this evening. Pain was intermittent. He did not take any nitroglycerin or other medicines for the pain. The pain is essentially resolved now. No cough or fever. No shortness of breath or diaphoresis with the pain. On examination patient is a well-developed well-nourished well-appearing male in no acute distress. He is alert and oriented 3. There is no cyanosis or diaphoresis. Chest is nontender to palpation. Breath sounds are clear and equal bilaterally. Heart regular rate and rhythm. Abdomen is soft and nontender with normal bowel sounds. EKG shows a normal sinus rhythm with ventricular rate of 64 no acute ischemic changes. Chest x-ray negative. Labs reviewed and unremarkable. Troponin normal. The hospitalist, Dr. Karimi, was consulted and accepted admission of the patient.
[2017-12-20 03:42] LABS: Amphetamine Screen,Urine Negative ng/mL (Cutoff=1000); Barbiturate Screen,Urine Negative ng/mL (Cutoff=200); Benzodiazepines Screen,Urine Negative ng/mL (Cutoff=200); Cannabinoid Screen,Urine Negative ng/mL (Cutoff = 50); Cocaine Screen,Urine Negative ng/mL (Cutoff= 300); Opiate Screen,Urine Negative ng/mL (Cutoff=300); Phencyclidine Screen,Urine Negative ng/mL (Cutoff=25)
--- NOTE | 2017-12-20 03:54 | Internal Med History&Physical ---
Date of Encounter: 12/20/17 Time of Encounter: 03:52 Internal Medicine - H&P: HPI Chief complaint: chest pain Plans for Post Hospital Care: Home History of present illness: Reyes Suero is a 62 year old woman with a history of coronary artery disease status post 2 stents, hypertension and diabetes who [facility] for intermittent chest pain. He was admitted earlier this year in March for chest pain episode and AR was ruled out and also last year where he had a stress test done with negative findings. He presents now complaining of chest pain that started at about 10 PM while he was outside walking with a heavy bag on his back. He states that initially he thought it might have to do with the cold wind causing chest tightness so he sat down to rest which relieved his pain however when he resumed walking again it recurred. On arrival to the emergency room he was in no acute distress, seen clinically and hemodynamically stable. His chest pain resolved spontaneously even prior to administration of aspirin and he did not require nitroglycerin. He reports adherence to his medications even though he says he is homeless. He says he obtains medications from the [place]. He describes the pain as fixed in his midsternal region and more of a tightness but that it traveled to his left shoulder; he denied dyspnea, abdominal/back pain as well as nausea or diaphoresis. He admits to illicit drug use stating that he uses cocaine but that his last use was a month ago. He denies a smoking history. History of abdominal hernia repair surgeries. PMHx: As above. SHx: As above. FHx: DM in mother. Review of systems: All systems reviewed and negative except as listed above in the HPI. Past Med Surg Social Fam HX - Past Medical History Medical history: coronary artery disease, CVA, diabetes, hypertension, myocardial infarction, renal disease Additional medical history: CARDIAC STENTS Psychiatric history: anxiety, depression - Past Surgical History Surgical History: other Additional surgical history: stents - Social History Smoking Status: Never smoker Smokeless Tobacco Status: No Alcohol use: none Drug use: cocaine, IV Drug Use - Family History Mother Living Status: Hx Family Cardiac Disorders: Yes Brother Living Status: Hx Family Endocrine Disorder: Yes Internal Medicine - H&P: Meds Aspirin 81 mg PO QAM 10/27/14 [History] Lisinopril [Zestril] 5 mg PO QPM 10/27/14 [History] Metoprolol [Lopressor] 25 mg PO BID 10/27/14 [History] Simvastatin [Zocor] 20 mg PO QPM 10/27/14 [History] Cephalexin [Keflex] 500 mg PO TID #21 capsule 06/26/16 [Rx] Ibuprofen [Motrin] 600 mg PO Q8HR #21 tablet 06/26/16 [Rx] Clopidogrel [Plavix] 75 mg PO DAILY 06/30/16 [History] Benzonatate [Tessalon] 100 mg PO TID #20 capsule 08/23/16 [Rx] Guaifenesin [Mucus ER] 600 mg PO Q12H #20 tab.er.12h 11/28/17 [Rx] Loratadine [Claritin] 10 mg PO DAILY #10 capsule 11/28/17 [Rx] Allergy/AdvReac Type Severity Reaction Status Date / Time Amoxicillin [From Augmentin] Allergy Mild Rash Verified 12/30/16 07:34 clavulanic acid Allergy Mild Rash Verified 12/30/16 07:34 [From Augmentin] All Systems PM: A 10-system review of systems was performed and is negative for pertinent findings except as documented above in the HPI. - Constitutional Vitals: Temp Pulse Resp BP Pulse Ox 97.7 F 73 17 126/66 96 12/19/17 23:34 12/20/17 02:53 12/20/17 02:53 12/20/17 02:53 12/20/17 02:53 Exam: Vitals: Reviewed General: Well-developed white male lying comfortably in bed in no acute distress Skin: Warm and supple. HEENT: Moist mucous membranes. No conjunctivae pallor. Neck: No lymphadenopathy. No JVD. No carotid bruits. No palpable thyroid. Chest: Normal thoracic expansion. Normal breath sounds. Clear to auscultation. Heart: Normal S1 & S2; rhythmic. No rubs or murmurs. Abdomen: Non-distended, soft and non-tender to palpation. No peritoneal reaction. Liver is normal in size. Spleen is not palpable. Extremities: No clubbing, cyanosis or edema. No calf tenderness. Normal distal pulses. Neurological: Awake, alert and oriented to person, place and time. No focal deficits. Psych: Affect appropriate. Internal Med - H&P Results - Labs CBC & Chem 7: 12/20/17 00:34 12/20/17 00:34 Labs: Short CBC 12/20/17 Range/Units 00:34 WBC 8.7 (4.3-11.1) K/mcL Hgb 11.9 L (12.9-16.9) g/dL Hct 38.8 (37.5-50.1) % Plt Count 146 (140-400) K/mcL Neutrophils # 5.1 (1.6-8.9) K/mcL BMP 12/20/17 00:34 Sodium 138 Potassium 3.9 Chloride 108 H Carbon Dioxide 23 BUN 20 Creatinine 1.18 Glucose 110 H Calcium 9.2 Cardiac Enzymes 12/20/17 Range/Units 00:34 Troponin I < 0.03 (< 0.04) ng/mL - EKG Data -: EKG Interpreted by Myself EKG shows normal: sinus rhythm Rate: normal - EKG Data When compared to previous EKG: there is no significant change Interpretation IM: normal EKG - Impressions ITS Impressions Chest X-Ray 12/19/17 23:50 IMPRESSION: No acute process. D/ / Alli Galindo MD / Alli Galindo MD Interpreting Provider: Alli Galindo MD - Assessment and plan (1) Chest pain Current Visit: Yes Status: Acute Assessment and plan: HEART score of 5 which is moderate risk and warrants observation. Of note, this seems to be a longstanding intermittent issue, undergoing nuclear stress test just over a year ago which was negative. He will benefit from outpatient cardiology follow due to the pain episodes as well as evaluation of other potential causes which are not apparent at this time. The pain appears to be self-limiting. Will monitor on telemetry. Obtain 2 more sets of troponins. Will not stress at this time as it was done just over a year ago and his symptoms don't seem to be unchanged from what he frequently has had. Should be plugged in with cardiology here or at the [place]. Qualifiers: Chest pain type: unspecified Qualified Code(s): R07.9 - Chest pain, unspecified (2) Coronary artery disease Current Visit: Yes Status: Chronic Assessment and plan: Will continue dual antiplatelet therapy and statins. Check lipid panel to ensure LDL is at goal. Qualifiers: Coronary Disease-Associated Artery/Lesion type: [place] artery [place] vs. transplanted heart: [place] heart Associated angina: angina presence unspecified Qualified Code(s): I25.10 - Atherosclerotic heart disease of [place] coronary artery without angina pectoris (3) Substance use disorder Current Visit: Yes Status: Acute Assessment and plan: Will obtain a UDS now to assess if he has used cocaine recently as this could be a precipitating factor for a spastic angina episode. (4) Diabetes Current Visit: Yes Status: Chronic Assessment and plan: For now he will be placed on insulin sliding scale. Qualifiers: Diabetes mellitus type: type 2 Diabetes mellitus watermelon inspector insulin use: with half-way use Diabetes mellitus complication status: with kidney complications Diabetes mellitus complication detail: with chronic kidney disease Chronic kidney disease stage: stage 3 (moderate) Qualified Code(s): E11.22 - Type 2 diabetes mellitus with diabetic chronic kidney disease; N18.3 - Chronic kidney disease, stage 3 (moderate); Z79.4 - half-way (current) use of insulin (5) Hypertension Current Visit: Yes Status: Chronic Assessment and plan: Continue lisinopril daily. Qualifiers: Hypertension type: essential hypertension Qualified Code(s): I10 - Essential (primary) hypertension (6) Anemia Current Visit: Yes Status: Chronic Assessment and plan: Seen to have a chronically borderline low Hgb. Will check iron studies and ferritin to r/o MARITZA. Qualifiers: Anemia type: unspecified type Qualified Code(s): D64.9 - Anemia, unspecified (7) DVT prophylaxis Current Visit: Yes Status: Acute Assessment and plan: SubQ heparin. - Time Spent With Patient Total time spent is greater than 50% in coordination of care (as documented) at patient's floor/unit and/or counseling patient: 25 - 35 minutes
[2017-12-20] MEDS: *HR* Heparin 5,000 UNIT/ML VIAL SQ SCH ×3 (05:32→20:29)
[2017-12-20 06:21] LABS: Immature Reticulocyte % 18.5 % (11.0-38.0); Retculocyte # 0.1 M/mcL (0.05-0.10); Reticulocyte % 1.8 % (1.6-2.8)
[2017-12-20 06:37] LABS: Troponin I < 0.03 ng/mL (< 0.04)
[2017-12-20 06:43] LABS: % Iron Saturation 17 % (20-55); Iron 44 mcg/dL (65-175); Transferrin 185 mg/dL (203-362)
[2017-12-20 06:44] LABS: Chol/HDL Ratio 2.4 (0-4.9); Cholesterol 102 mg/dL (< 200); HDL Cholesterol 42 mg/dL (40-59); LDL Cholesterol,Calculated 48 mg/dL (0-99); Triglycerides 59 mg/dL (< 150)
[2017-12-20 06:54] LABS: Ferritin 63 ng/mL (20-250)
[2017-12-20] MEDS: Loratadine 10 MG TABLET PO SCH (09:22)
[2017-12-20] MEDS: Aspirin 81 MG TAB.CHEW PO SCH (09:22)
[2017-12-20] MEDS ORDERED: Dextrose Gel 15 GM/37.5 ML TUBE PO PRN ×2 (09:37)
[2017-12-20] MEDS ORDERED: *HR* Dextrose 50 % in Water (Syg) 50 ML SYRINGE IVP PRN (09:37)
[2017-12-20] MEDS ORDERED: D5% in Water 1,000 ML IVC PRN (09:37)
[2017-12-20] MEDS ORDERED: hydrOXYzine pamoate 25 MG CAPSULE PO PRN (11:28)
[2017-12-20] MEDS ORDERED: Gabapentin 300 MG CAPSULE PO PRN (11:28)
--- NOTE | 2017-12-20 11:35 | Event Note ---
Date of Encounter: 12/20/17 Time of Encounter: 11:32 Patient is seen and examined at the bedside.i agree with the assessment and plan as outlined by the admitting hospitalist. The patient continues to have intermittent chest pain which is "twinge" in the left side of his chest. He is requesting seen cardiology and I will do so. Off note the patient has a very poor history of follow-up and has been lost to follow up multiple times with cardiology is an outpatient. He does have negative cardiac enzymes at this point He also give himself 5 units of insulin short-acting when his blood sugar level was 95 on his own. I instructed him not to do so anymore and we will put him on insulin sliding scale protocol and monitor his blood glucose very closely. I will also instructed the nurses to give him a thorough diabetes teaching and make sure that his blood glucose monitoring is appropriate
[2017-12-20] MEDS: Insulin LISPRO 300 UNITS/3 ML VIAL SQ SCH ×3 (12:29→20:29)
--- NOTE | 2017-12-20 15:26 | Cardiology Consult Note ---
Date of Encounter: 12/20/17 Time of Encounter: 15:24 Assessment and Plan (1) Chest pain, rule out acute myocardial infarction Current Visit: No Status: Ruled-out Negative cardiac markers and unremarkable EKG. We will proceed with an ETT due to persistent atypical chest pain. Negative cardiac markers as of yet Discussion w patient/family: The assessment and plan as outlined above was discussed with the patient and/or family members who expressed understanding and agreement. All questions were answered. Thank you for involving us in the care of your patient. Please call with any questions. History of Present Illness Consult date: 12/20/17 Consult reason: Chest Pain Chief complaint: Chest Pain History of present illness: Mr. Suero is a 62 year old male with history of multiple cardiac risk factors and PCI in 2011 at an outside hospital presents with chest pain. Patient presented earlier in June 2016 with chest pain received a stress test and echocardiogram both of which were unremarkable with a preserved ejection fraction. Patient currently with an unremarkable EKG and atypical type chest p ain. His chest pain is sharp stabbing in the left pectoral region without aggravating or relieving factors and no associated symptoms. Due to his multiple cardiac risk factors and history of PCI do believe a noninvasive risk stratification is reasonable with an ETT Past Med Surg Social Fam HX - Past Medical History Medical history: coronary artery disease, CVA, diabetes, hypertension, myocardial infarction, renal disease Additional medical history: CARDIAC STENTS Psychiatric history: anxiety, depression - Past Surgical History Surgical History: other Additional surgical history: stents - Social History Smoking Status: Never smoker Smokeless Tobacco Status: No Alcohol use: none Drug use: cocaine, IV Drug Use - Family History Mother Name: Makeda Living Status: Age at : 78 Cause of : [place] Hx Family Cardiac Disorders: Yes ([place]) Brother Name: Hector Suero Living Status: Age at : 45 Cause of : DM Hx Family Endocrine Disorder: Yes (DM) Medications and Allergies Aspirin 81 mg PO DAILY 10/27/14 [History] Clopidogrel [Plavix] 75 mg PO DAILY 06/30/16 [History] Acetaminophen [Non-Aspirin] 650 mg PO Q8H PRN 12/20/17 [History] Dextrose/Vitamin D3 [Trueplus Glucose 4 gm Tab Chew] 4 tab PO DAILY PRN 12/20/17 [History] Gabapentin [Neurontin] 300 mg PO TID PRN 12/20/17 [History] Insulin ASPART [NovoLOG] 10 unit SQ TID 12/20/17 [History] Insulin Glargine,Hum.rec.anlog [Lantus Solostar] 43 unit SQ DAILY 12/20/17 [History] Lisinopril [Zestril] 5 mg PO HS 12/20/17 [History] Melatonin 6 mg PO HS 12/20/17 [History] Metoprolol [Lopressor] 25 mg PO BID 12/20/17 [History] Multivit-Min/FA/Lycopen/Lutein [Centrum Silver Men Tablet] 1 each PO QAM 12/20/17 [History] Omeprazole [PriLOSEC] 20 mg PO DAILY 12/20/17 [History] Sertraline [Zoloft] 100 mg PO DAILY 12/20/17 [History] Sildenafil Citrate 100 mg PO DAILY PRN 12/20/17 [History] Simvastatin [Zocor] 20 mg PO QPM 12/20/17 [History] hydrOXYzine HCl [Hydroxyzine HCl] 25 mg PO DAILY PRN 12/20/17 [History] metFORMIN [Glucophage] 1,000 mg PO QPM 12/20/17 [History] Allergy/AdvReac Type Severity Reaction Status Date / Time Amoxicillin [From Augmentin] Allergy Mild Rash Verified 12/20/17 10:47 clavulanic acid Allergy Mild Rash Verified 12/20/17 10:47 [From Augmentin] All Systems Review: The remainder of the systems were reviewed and are negative Physical Examination Vital Signs, Last 4 Hours Temp Pulse Resp BP Pulse Ox 12/20/17 11:36 97.4 F L 64 17 142/76 95 General: Conversant, No Apparent Distress HEENT: Atraumatic, Normocephaly, Mucus Membranes Moist Neck: No JVD, Normal carotid pulses Cardiac: Reg Rate and Rhythm, Normal S1 and S2, No Murmur Lungs: Normal Breath Sounds, No Wheeze, Rales, Rhonchi Neuro: Alert and responsive, No focal deficits noted Abdomen: Soft, Non-Tender Skin: No rashes noted on visualized skin Musculoskeletal: No Chest Wall Tenderness Extremities: No Clubbing, No Cyanosis, No Edema, Normal Pulses Results 12/20/17 00:34 12/20/17 00:34 Lab Results 12/20/17 12/20/17 12/20/17 00:34 00:34 00:34 WBC 8.7 Hgb 11.9 L Hct 38.8 Plt Count 146 Sodium 138 Potassium 3.9 Chloride 108 H Carbon Dioxide 23 BUN 20 Creatinine 1.18 Glucose 110 H Calcium 9.2 Troponin I < 0.03 B-Natriuretic Peptide 27 12/20/17 12/20/17 05:45 11:55 WBC Hgb Hct Plt Count Sodium Potassium Chloride Carbon Dioxide BUN Creatinine Glucose Calcium Troponin I < 0.03 < 0.03 B-Natriuretic Peptide Consult Discharge Plan - Plan [facility] - 12/26/17 1:30 pm
[2017-12-20] MEDS: Melatonin 3 MG TABLET PO SCH (20:29)
[2017-12-21] MEDS: *HR* Heparin 5,000 UNIT/ML VIAL SQ SCH ×3 (05:54→21:20)
[2017-12-21] MEDS: Insulin LISPRO 300 UNITS/3 ML VIAL SQ SCH ×4 (07:46→21:21)
[2017-12-21] MEDS: Aspirin 81 MG TAB.CHEW PO SCH (08:56)
[2017-12-21] MEDS: Loratadine 10 MG TABLET PO SCH (08:56)
--- NOTE | 2017-12-21 12:16 | Event Note ---
Date of Encounter: 12/21/17 Time of Encounter: 12:15 - Cardiology Event Note TTE resulted--LVEF 50-55%. Mild left ventricular diastolic dysfunction. Left ventricular apex not well visualized. Recommend limited study with imaging enhancement. Normal right ventricular structure and function. No significant [place] vular dysfunction. [place] wall documented as hypokinetic, new compared to echo 06/2016 when he had no wall motion abnormalities. Given new wall motion abnormality, presenting with chest pain and negative stress test 06/2016, recommend proceeding with LHC. R/B/A discussed and pt agrees to proceed.
[2017-12-21] MEDS ORDERED: *HR* Heparin 10,000 UNIT/10 ML VIAL ONE (12:38)
[2017-12-21] MEDS ORDERED: ISOVUE-370 200 ML INFUS..BTL ONE (12:38)
[2017-12-21] MEDS ORDERED: Nitroglycerin 1,000 MCG/10 ML VIAL IV ONE (12:38)
[2017-12-21] MEDS ORDERED: 0.9 % Sodium Chloride 1,000 ML ONE ×2 (12:38→13:06)
[2017-12-21] MEDS ORDERED: Heparin 1,000 UNITS/500 mL 500 ML ONE (12:38)
[2017-12-21] MEDS ORDERED: *HR* Midazolam HCl 2 MG/2 ML VIAL ONE (13:06)
--- NOTE | 2017-12-21 13:12 | Pre-Sedation Evaluation ---
Pre-sedation evaluation - Pre-sedation checklist Date of procedure: 12/21/17 Procedure: [facility] Recent Vitals: Last Vital Signs Temp 97.5 F L 12/21/17 07:36 Pulse 59 12/21/17 07:36 Resp 18 12/21/17 07:36 BP 101/61 12/21/17 07:36 Pulse Ox 97 12/21/17 07:36 H&P (including ROS) documented in medical record: Yes Previous reaction to sedatives/anesthetics: No Dietary Status: NPO after Midnight Dentition: No loose teeth or bridges Possible difficult airway: No ASA Classification *see protocol: CLASS III-Severe systemic disease Plan of Care: Pt appropriate candidate for procedure/moderate/conscious sedation, Risks/benefits of procedure/sedation discussed w/ patient/family (Pt seen and examined, chart reviewed, risks and benefits discussed, pt elects to proceed. ), If not NPO; Risk of intake outweiged by necessity to perform procedure Cardiac Registry (Cardio Only) - Functional Capacity Functional Capacity: >=4 METS without symptoms - Clincal Frailty Scale Clinical Frailty Scale: Managing Well
[2017-12-21] MEDS ORDERED: *HR* Bivalirudin 250 MG VIAL IVC ONE (13:52)
--- NOTE | 2017-12-21 15:19 | Internal Med Progress Note ---
Hospitalist Progress Note - Encounter Date of Encounter: 12/21/17 Time of Encounter: 11:00 - Subjective Interval History: Reyes Ozuna is a 62-year-old male who entered with chief complaint of chest pain through the emergency department. He has known history of substance abuse coronary artery disease 3 disease hypertension diabetes hyperlipidemia and previous heart attack. When he presented to the emergency room he denied any associated symptoms with his chest pain. Today he continues to complain of the left midsternal chest pain that radiates up over the left anterior clavicle and into the left shoulder chest pain can last from 2 seconds to 5 minutes is episodic in nature. States that it is sharp in nature does occur at rest nothing that makes it feel better or worse. He also states today that he has been having some suicidal ideation and thoughts. Verbalized, to the in-house forensic social worker that due to his homelessness if it was not for his cat he has nothing to "live for". Today on his interview with the bedside he is under suicide precautions and does have a sitter also denies any suicidal ideations at this time he stated that he was suicidal prior to his admission. Reports the reasoning for his depression is that he is homeless, has lost his apartment and was evicted, due to scratching of the floor as he reports he moved a TV from his apartment to his girlfriend's apartment here is that he and his girlfriend live in the same complex and he is part from that complex. She surfaces [facility] and it appears that he has also exhausted all of his resources with the [facility] barred from all shelters that and VAs that are of Government property. 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 Cardiology consult has been completed today, and patient is scheduled for [facility]. He currently is nothing by mouth and testing is pending - Exam Vitals: Temp Pulse Resp BP Pulse Ox 97.5 F L 59 18 101/61 97 12/21/17 07:36 12/21/17 07:36 12/21/17 07:36 12/21/17 07:36 12/21/17 07:36 Exam: Stable - Assessment and Plan (1) Diabetes Current Visit: Yes Status: Chronic Assessment and Plan: Glucose today is 110 we will continue with his insulin and diabetic diet will continue to monitor (2) Coronary artery disease Current Visit: Yes Status: Chronic Assessment and Plan: Continues to complain of midsternal chest pain radiating up over the left arm and clavicle shoulder he is pending [facility] today. Echo shows LVEF of 50-55% with mild left ventricular diastolic dysfunction. He is to remain nothing by mouth until testing is complete Addendem. Nursing staff reports that bere is to be transfered to [facility] from [facility]. (3) Hypertension Current Visit: Yes Status: Chronic Assessment and Plan: Blood pressure is normal at 101/61 pulse is 59 (4) Anemia Current Visit: Yes Status: Chronic Assessment and Plan: Anemia is chronic due to a history of substance abuse, poor nutrition and homelessness. Consults with the nurse navigators and clinical social work therapist are completed and in process. 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 social and human services assistant and the nurse navigator will continue to investigate placement for this gentleman to find him home if possible. Once testing is completed we will continue with a cardiac diet and monitor her CBC. We will start him on a multivitamin daily (5) Chest pain Current Visit: Yes Status: Acute Assessment and Plan: History of coronary artery disease [place] hyperlipidemia multiple risk factors for heart attack diabetes type 2. Continues with MRI [facility] is pending as of today. LVEF is 50-55%. We will continue with telemetry and monitoring of medication regimens cardiac meds cardiac consult pending [facility] results and treatment plan and program (6) Substance use disorder Current Visit: Yes Status: Acute Assessment and Plan: Chronic we will continue to monitor for DTs (7) DVT prophylaxis Current Visit: Yes Status: Acute Assessment and Plan: Continue with heparin and Plavix (8) Suicidal thoughts Current Visit: Yes Status: Acute Assessment and Plan: Patient is documented as having suicidal ideation and thoughts or statements to the forensic social worker that if it was not for my Have Nothing to Live for". It appears that this is due to his social situation of homelessness he has history of drug abuse and antisocial behavior with bile appears that he has exhausted communal resources of the [facility] and any governmental properties he has also been barred from his apartment and infected and part from the complex as his girlfriend lives in the same complex. He states that he lives anywhere there is a long-term over his head such as raise under bridges etc he stated before he was admitted he did have suicidal thoughts with plan however he is reluctant to respond on those suicidal thoughts and plans today he denies any suicidal thoughts with a plan we are going to go ahead and put him on one-on-one watch and obtain a psychiatric consult . - Time Spent with Patient Total time spent is greater than 50% in coordination of care (as documented) at patient's floor/unit and/or counseling patient: Internal Medicine: Result - Labs CBC & Chem 7: 12/20/17 00:34 12/20/17 00:34 - Impressions Impressions Echocardiogram 12/20/17 15:12 Impressions: LVEF 50-55%. Mild left ventricular diastolic dysfunction. Left ventricular apex not well visualized. Recommend limited study with imaging enhancement. Normal right ventricular structure and function. No significant valvular dysfunction. Consult Discharge Plan - Plan Referrals: [facility],PCP [Primary Care Provider] - 12/26/17 1:30 pm (1) Diabetes Qualifiers: Diabetes mellitus type: type 2 Diabetes mellitus detention insulin use: with superintendent terminal use Diabetes mellitus complication status: with kidney complications Diabetes mellitus complication detail: with chronic kidney disease Chronic kidney disease stage: stage 3 (moderate) Qualified Code(s): E11.22 - Type 2 diabetes mellitus with diabetic chronic kidney disease; N18.3 - Chronic kidney disease, stage 3 (moderate); Z79.4 - intermediate frame tender (current) use of insulin (2) Coronary artery disease Qualifiers: Coronary Disease-Associated Artery/Lesion type: [place] artery [place] vs. transplanted heart: [place] heart Associated angina: angina presence unspecified Qualified Code(s): I25.10 - Atherosclerotic heart disease of [place] coronary artery without angina pectoris (3) Hypertension Qualifiers: Hypertension type: essential hypertension Qualified Code(s): I10 - Essential (primary) hypertension (4) Anemia Qualifiers: Anemia type: iron deficiency Iron deficiency anemia type: inadequate dietary iron intake Qualified Code(s): D50.8 - Other iron deficiency anemias (5) Chest pain Qualifiers: Chest pain type: unspecified Qualified Code(s): R07.9 - Chest pain, unspecified
--- NOTE | 2017-12-21 17:25 | Invasive Diagnostic Lab Proc ---
Name: Reyes Suero Date of Study: 12/21/2017 Date: 1955 Ht: 68.1in Medical Record#: [id number] Age: 62 Wt: 204.59lb Gender: Male BSA: 2.07 Order #: [id number] BMI: 31.01 Physicians Procedure Physician: Barney Enciso DO Referring MD: Referring MD: Staff Name Position Time In Rubén Panda RT (R) Scrub 01:04 PM Soledad Mcneil RN Monitor 01:04 PM Lexie Esqueda RN Visual Merchandising Specialist 01:04 PM Indications Indication Unstable Angina Procedures Performed Procedure L HRT ARTERY/VENTRICLE ANGIO PRQ CARD BOB STENT W/ANGIO 1 VSL Pre-Procedure Checklist Pt not NPO for procedure and MD aware. Blood Pressure: 101/61 Rhythm: NSR Plan of Care Patient will tolerate the procedure without complications. Adequate level of comfort will be maintained. Hemodynamics will remain stable Patient will recover from procedure without complications. Respiratory function will be maintained. Cardiac rhythm will remain stable. Patient temperature will be maintained. Patient and/or family have verbalized understanding of the procedure. Patient Education Chief Complaint/Reason for Test: Cardiac Cath Developmental Category: Adult (18-64 years) Developmentally Appropriate for Age: Yes Learning Barriers: None Education Needs: Procedure Education Method: Verbal Information Taught: Cardiac Cath Educational Evaluation: Able to repeat information Intravenous Access Time IV Size Location DC'd Fluid/Drip Rate Units RN 12:57 PM 20g 1 1/" Patent On Arrival Rt Hand Allergies clavulanic acid Amoxicillin Vital Signs Time BP (mmHg) HR (bpm) O2 Sat. RR (bpm) LOC 12:59 PM 101 / 61 59 97 % 18 5 = Fully awake and oriented or at pre-proc level 01:15 PM / % 5 = Fully awake and oriented or at pre-proc level 01:15 PM / % 4 = Oriented but drowsy 01:31 PM / % 4 = Oriented but drowsy 02:09 PM 132 / 77 63 93 % 17 5 = Fully awake and oriented or at pre-proc level 02:15 PM 146 / 89 56 97 % 16 5 = Fully awake and oriented or at pre-proc level 01:16 PM 187 / 102 132 97 % 24 01:21 PM 158 / 96 60 96 % 21 01:26 PM 149 / 86 60 94 % 21 01:31 PM 141 / 86 60 94 % 14 01:36 PM 152 / 94 68 98 % 21 01:41 PM 147 / 91 70 98 % 23 01:46 PM 148 / 88 65 93 % 10 01:51 PM 147 / 86 59 93 % 12 01:56 PM 145 / 83 64 95 % 19 02:15 PM 137 / 81 57 96 % 16 5 = Fully awake and oriented or at pre-proc level 02:30 PM 164 / 90 55 96 % 18 5 = Fully awake and oriented or at pre-proc level 02:45 PM 160 / 93 57 97 % 16 5 = Fully awake and oriented or at pre-proc level 03:08 PM 164 / 73 57 95 % 16 5 = Fully awake and oriented or at pre-proc level 03:15 PM 148 / 77 55 94 % 16 5 = Fully awake and oriented or at pre-proc level 03:30 PM 159 / 90 58 98 % 16 5 = Fully awake and oriented or at pre-proc level 03:45 PM 153 / 77 58 98 % 16 5 = Fully awake and oriented or at pre-proc level 04:00 PM 145 / 82 54 96 % 16 5 = Fully awake and oriented or at pre-proc level 04:15 PM 155 / 88 56 98 % 18 5 = Fully awake and oriented or at pre-proc level 04:30 PM 164 / 89 57 98 % 18 5 = Fully awake and oriented or at pre-proc level 04:45 PM 177 / 110 73 97 % 18 5 = Fully awake and oriented or at pre-proc level 05:00 PM 169 / 88 58 96 % 18 5 = Fully awake and oriented or at pre-proc level Procedural Medications Time Medication Dose Units Method Given By 01:15 PM Oxygen 2 L/min nasal cannula Lexie Esqueda RN 01:16 PM Versed 2 mg Intravenous Lexie Esqueda RN 01:31 PM Lidocaine 2% 10 ml Subcutaneous Barney Enciso DO 01:49 PM Angiomax 0.75mg/kg bolus: 13.5 ml Intravenous Lexie Esqueda RN 01:49 PM Angiomax 1.75mg/kg/hr: 31.5 ml Intravenous Lexie Esqueda RN ASA Classification: CLASS III- Severe systemic disease (i.e. prior AMI, diabetes with vascular complications, morbid obesity) Justin Score Preprocedure Postprocedure Activity 2- Moves 4 extremities sustained head lift Activity 2- Moves 4 extremities sustained head lift Circulation 2- SBP +/= 20 points of pre-anesthetic level Circulation 2- SBP +/= 20 points of pre-anesthetic level Consciousness 2- Awake and alert oriented x 3 Consciousness 2- Awake and alert oriented x 3 O2 Saturation 2- Able to maintain O2 satruation of 92% on room air O2 Saturation 2- Able to maintain O2 satruation of 92% on room air Respiratory 2- Able to deep breathe and cough well Respiratory 2- Able to deep breathe and cough well Total Score 10 Total Score 10 Contrast Agent: Isovue Total Contrast: 80 ml Fluoro Dose: 5718 mGy Procedure Log Time Note Enter By 01:04 PM Pt arrived to microbiology lab technician 2 at 13:04 kmavis 01:04 PM Rubén Panda RT (R) Position: Scrub Time in: : kmavis 01:04 PM Soledad Mcneil RN Position: Monitor Time in: : [facility] 01:04 PM Lexie Esqueda RN Position: Visual Merchandising Specialist Time in: 13: kmavis 01:04 PM Patient charges- Angio tray pack, Navilyst 3mm J, Pulse Oximetry and ACIST tubing and transducer kmavis 01:05 PM Case Start 01:05 PM CathStat 01:05 PM [ Start or Stop Vital ] 01:10 PM Physician arrived 13:10 kmavis 01:10 PM Holli completed kmavis 01:10 PM Sign in performed according to hospital policy. Informed consent was obtained. kmavis 01:10 PM Procedure start 13:10 kmavis 01:10 PM Hair removed from procedure site in procedure lab using clippers. Bilateral groin prepped with Chloraprep by Lexie Esqueda RN, then patient was draped. Skin intact. kmavis 01:15 PM Recorded ECG: HR=60 Condition=Condition 1 01:15 PM Vitals capture started with the following parameters, Patient=Adult, Interval=5 min, Initial Lsbtlljw=507 mmHg, Deflation Rate=5 mmHg, Cuff placed on Right Arm 01:15 PM Time: 13:15 Oxygen on at 2 L/min per nasal cannula by Lexie Esqueda RN [facility] :15 PM Time: 13:15 Patient comfortable and pain free: Yes kmavis :15 PM Time: 13:15LOC: 5 = Fully awake and oriented or at pre-proc level kmavis 01:16 PM Time: 13:16 Versed 2 mg Intravenous Given by Lexie Esqueda RN kmavis 01:16 PM WE=729 bpm, NDKD=070/102 mmhg, SpO2=97.0 %, Resp=24 B/min, Comment=nst 01:17 PM ASA Class CLASS III- Severe systemic disease (i.e. prior AMI, diabetes with vascular complications, morbid obesity) kmavis 01:19 PM Pressure channel 2 zeroed. 01:21 PM HR=60 bpm, ILDS=571/96 mmhg, SpO2=96 %, Resp=21 B/min 01:26 PM HR=60 bpm, JHIM=072/86 mmhg, SpO2=94 %, Resp=21 B/min 01:31 PM HR=60 bpm, FDHT=958/86 mmhg, SpO2=94 %, Resp=14 B/min 01:31 PM Time: 13:15LOC: 4 = Oriented but drowsy kmavis :31 PM Time: 13:15 Patient comfortable and pain free: Yes kmavis :31 PM Time out was performed according to hospital policy. Conscious sedation and anesthesia was achieved (see medication log with in this report above) kmavis :31 PM Time: 13:31 10 ml Lidocaine 2% to right groin Subcutaneous Given by Barney Enciso DO kmavis 01:32 PM Micro-Introducer Kit utilized for sheath placement kmavis 01:36 PM HR=68 bpm, ZKXE=664/94 mmhg, SpO2=98 %, Resp=21 B/min 01:38 PM Access obtained by percutaneous puncture. 6Fr 10cm Terumo Rush sheath placed in right Femoral artery. [id number] kmavis 01:41 PM HR=70 bpm, IWRX=848/91 mmhg, SpO2=98 %, Resp=23 B/min 01:42 PM Recorded Pressure: LV, HR=70, Condition=Condition 1 (Left Ventricle) LV 152/-2/7 01:42 PM Recorded Pressure: LV, HR=67, Condition=Condition 1 (Left Ventricle) LV 153/47/43 01:43 PM 6Fr FR 4 catheter inserted over the wire DN kmavis 01:43 PM Catheter crossed the aortic valve and was selectively placed in the left ventricle. Pressures recorded on pullback for left heart catheterization. kmavis 01:43 PM Bolus angiogram of left Ventricle complete: hand injected kmavis 01:43 PM Catheter removed kmavis 01:43 PM 6Fr FL 4 catheter inserted over the wire DNC kmavis 01:43 PM LCA angiography performed in multiple views. kmavis 01:44 PM Recorded Pressure: Ao, HR=63, Condition=Condition 1 (Aorta) Ao 135/62/89 01:46 PM HR=65 bpm, QYIQ=593/88 mmhg, SpO2=93.0 %, Resp=10 B/min 01:46 PM Time: 13:31 Patient comfortable and pain free: Yes kmavis :46 PM Time: 13:31LOC: 4 = Oriented but drowsy kmavis :46 PM Lesion found in Mid LAD. Pre Stenosis: 80 Pre CIPRIANO Flow: kmavis 01:47 PM Lesion found in Mid Circumflex. Pre Stenosis: 40 Pre CIPRIANO Flow: kmavis :47 PM Coronary Dominance: right kmavis 01:47 PM Mid/Distal Left Anterior Descending Coronary Artery and diagonal branches with 80% stenosis. If graft is supplying this area, 0 % stenosis kmavis 01:47 PM Circumflex, Obtuse Marginal, Left Posterior Descending, and Left Posterolateral Coronary Arteries with 40 % stenosis. If graft is supplying this area, 0 % stenosis kmavis 01:49 PM Time: 13:49 Angiomax 0.75mg/kg bolus: 13.5 ml Intravenous Given by Lexie Esqueda RN Crum pump kmavis 01:49 PM Time: 13:49 Angiomax 1.75mg/kg/hr: 31.5 ml Intravenous Given by Lexie Esqueda RN Crum pump kmavis 01:50 PM Inflation device was opened. kmavis 01:51 PM HR=59 bpm, RADO=960/86 mmhg, SpO2=93.0 %, Resp=12 B/min 01:51 PM 6Fr JL4 Runway guide catheter was used to cannulate the PCI vessel successfully. reused? No kmavis 01:51 PM .014 ChoICE PT Extra Support 300cm guide wire across target lesion- successful. reused? No kmavis 01:52 PM 3.5mm x 16mm Synergy drug-eluting stent across target lesion- successful Lot #[id number] kmavis 01:54 PM Stent deployed @ 14 soraya for 17 seconds kmavis 01:54 PM Stent balloon reinflated @ 16 soraya for 10 seconds kmavis 01:55 PM Stent delivery system removed intact. kmavis 01:56 PM HR=64 bpm, GWGV=472/83 mmhg, SpO2=95.0 %, Resp=19 B/min 01:56 PM Guide catheter removed intact. kmavis 01:56 PM Guide wire removed intact. kmavis 01:56 PM Procedure completed at 13:56 12/21/2017 kmavis 01:56 PM Did you address CIPRIANO flow and Dominance? Yes kmavis 01:57 PM Sign out completed: Radiation Dose 479.96 mGy, 5717.68 cGy/cm2 Fluoro Time: 4.0 Isovue 370 - 200ml contrast 80 ml given by Barney Enciso DO. Complications: None. The patient was discharged out of the laborer tin can in stable condition. Cardiac Rehab Consult needed: NoConfirmed administered medications: No kmavis 01:57 PM Sheath left in place to be pulled on floor/holding areaV+Pad kmavis 01:58 PM Estimated Blood Loss: minimal kmavis 01:58 PM Post ECG NSR kmavis 01:58 PM Post Blood Pressure 145/83 kmavis 01:58 PM 13:58 Post Pulses Bilateral DP & PT 2+ kmavis 01:58 PM Information taught PCI and Cardiac Cath kmavis 01:58 PM Education needs Procedure, Plan of Care, Disease Process, and Responsibilities of Patient in Care kmavis 01:58 PM Learning barriers :None kmavis 01:58 PM Education Methods Verbal kmavis 01:59 PM Education evaluation Able to repeat information kmavis 01:59 PM Site status No bleeding/hematoma - Rt Groin as reported by Rubén Panda RT (R) at 13:59 kmavis 01:59 PM Opsite applied kmavis 02:00 PM Delay to floor Bed availability kmavis 02:00 PM Patient out of room: 14:00 kmavis 02:01 PM QXCF=960/81 mmhg 02:02 PM Complications: None kmavis 02:02 PM Report given to Gilbert LATHAM Pt taken to Holding room Room #3. 14:02 kmavis 02:03 PM Plavix, Effient or Brilinta given No kmavis 02:22 PM Patient voided 200 cc dark yellow per urinal. kwitte 04:08 PM Right femoral artery sheath pulled per this RN. Manual pressure being held with Vpad. itte 04:23 PM Hemostasis obtained to right femoral artery. Dressing with opsite applied. Patient educated on post sheath pull and instructions. Patient verbalized understanding. kwitte 04:52 PM Patient assisted with post cath food tray. kwitte 05:12 PM Delay to floor Bed availability kwitte 05:12 PM Complications: None kwitte 05:13 PM Report given to Gloria LATHAM Pt taken to Holding room Room #[id number]. 17:12 kwitte 05:14 PM Patient out of room: 17:14 kwitte Complications Complication None None None Hemodynamics Pressures Site Systolic/A Wave Diastolic/V Wave Mean LV 152 -2 7 LV 153 47 43 AO 135 62 89 Post Procedure Information Blood Pressure: 145/83 mmHg Rhythm: NSR Post procedural instructions were given Site Checks Time Location Status Staff Sheath In? Note 01:59 PM Rt Groin No bleeding/hematoma Rubén Panda RT (R) Yes 02:08 PM Rt Groin No bleeding/ No Hematoma Dalia Solis RT Yes 02:15 PM Rt Groin No bleeding/ No Hematoma Gilbert Lea RN Yes 02:30 PM Rt Groin No bleeding/ No Hematoma Gilbert Lea RN Yes 02:45 PM Rt Groin No bleeding/ No Hematoma Gilbert Lea RN Yes 03:00 PM Rt Groin No bleeding/ No Hematoma Gilbert Lea RN Yes 03:15 PM Rt Groin No bleeding/ No Hematoma Gilbert Lea RN Yes 03:30 PM Rt Groin No bleeding/ No Hematoma Gilbert Lea RN Yes 03:45 PM Rt Groin No bleeding/ No Hematoma Gilbert Lea RN Yes 04:00 PM Rt Groin No bleeding/ No Hematoma Gilbert Lea RN Yes 04:15 PM Rt Groin No bleeding/ No Hematoma Gilbert Lea RN 04:30 PM Rt Groin No bleeding/ No Hematoma Gilbert Lea RN 04:45 PM Rt Groin No bleeding/ No Hematoma Gilbert Lea RN 05:00 PM Rt Groin No bleeding/ No Hematoma Gilbert Lea RN Pulses Time Site Pre-Procedure Post-Procedure Note 12/21/2017 12:59:00 PM Bilateral radial 2+ 12/21/2017 12:59:00 PM Bilateral DP 2+ 1:58:00 PM Bilateral DP & PT 2+ 12/21/2017 2:15:00 PM Bilateral DP & PT 2+ 12/21/2017 2:30:00 PM Bilateral DP & PT 2+ 12/21/2017 3:00:00 PM Bilateral DP & PT 2+ 12/21/2017 4:00:00 PM Bilateral DP & PT 2+ Updated by Gilbert Lea RN on 12/21/2017 5:16:58 PM Gilbert Lea RN electronically signed on 12/21/2017 5:17:31 PM with status of Final
--- NOTE | 2017-12-21 18:00 | Consult Note ---
Date of Encounter: 12/21/17 Time of Encounter: 17:30 Assessment & Recommendation (1) Chronic post-traumatic stress disorder Current visit: Yes Status: Acute (2) Passive suicidal ideations Current visit: Yes Status: Chronic (3) Cocaine dependence, uncomplicated Current visit: Yes Status: Acute (4) Homeless single person Current visit: Yes Status: Acute History of Present Illness Patient: known to practice within the last 3 years Requesting Physician: Lesly Reyna Reason for consult: i am homeless History of present illness: Mr. Suero is a 62 year old male This patient is known to me from the [facility]. He is accompanied by a female stave grader. History of present illness: The patient has required psychiatric hospitalization and has had problems with substance abuse. Most recently the patient developed worsening of cocaine abuse. He was in a partial hospitalization program but there was an accusation that he dropped a dirty urine. The patient has recurrent episodes of cocaine and generally on the first the month when he is paid his disability check. His female friend wonders whether he might benefit from having a payee. In a conversation earlier today he stated that he would be out on the streets he become depressed and he might as well or end his life or the patient had no specific reason or weight to do this but in the past these had some insulin overdose and he is an insulin-dependent diabetic. The patient notes that he has been barred from [facility]. Recently he was trying to help in one of the housing units and was charged with criminal trespass. He has a court hearing on December 25 to address discharge. On Monday the in the afternoon the patient has an appointment with Renetta who is a homeless coordinator for the [facility] population The patient was in the program he reports that he has been clean. He denies that he used while in [address]. He got into an argument with the director of the program. The patient has diabetes and is on multiple medicines he is on sertraline for PTSD. He is looking at other options such as having a trailer finding an apartment but now his female friend says that she is being evicted as well. The patient lives out of a backpack and weighs 50 pounds and he is just had a cardiac catheterization with the need for wound care. CC: Lesly Reyna Past Med Surg Social Fam HX - Past Medical History Medical history: coronary artery disease, CVA, diabetes, hypertension, myocardial infarction, renal disease - Past Psychiatric History Psychiatric history: Reports: PTSD, previous psychiatric hospitalization, other Family psychiatric history: Unknown Family History of Suicide: Unknown - Past Surgical History Surgical History: other - Social History Smoking Status: Never smoker Smokeless Tobacco Status: No Alcohol use: none Drug use: cocaine, IV Drug Use Current living situation: Homeless Activity Level: Mostly sedentary Recent Out of Country Travel Within the Last 8 Weeks: No Exposure or Possible Exposure to Illness During Travel: No - Family History Mother Name: Makeda Living Status: Age at : 78 Cause of : OK Hx Family Cardiac Disorders: Yes (OK) Brother Name: Hector Suero Living Status: Age at : 45 Cause of : DM Hx Family Endocrine Disorder: Yes (DM) Medications & Allergies Aspirin 81 mg PO DAILY 10/27/14 [History] Clopidogrel [Plavix] 75 mg PO DAILY 06/30/16 [History] Acetaminophen [Non-Aspirin] 650 mg PO Q8H PRN 12/20/17 [History] Dextrose/Vitamin D3 [Trueplus Glucose 4 gm Tab Chew] 4 tab PO DAILY PRN 12/20/17 [History] Gabapentin [Neurontin] 300 mg PO TID PRN 12/20/17 [History] Insulin ASPART [NovoLOG] 10 unit SQ TID 12/20/17 [History] Insulin Glargine,Hum.rec.anlog [Lantus Solostar] 43 unit SQ DAILY 12/20/17 [History] Lisinopril [Zestril] 5 mg PO HS 12/20/17 [History] Melatonin 6 mg PO HS 12/20/17 [History] Metoprolol [Lopressor] 25 mg PO BID 12/20/17 [History] Multivit-Min/FA/Lycopen/Lutein [Centrum Silver Men Tablet] 1 each PO QAM 12/20/17 [History] Omeprazole [PriLOSEC] 20 mg PO DAILY 12/20/17 [History] Sertraline [Zoloft] 100 mg PO DAILY 12/20/17 [History] Sildenafil Citrate 100 mg PO DAILY PRN 12/20/17 [History] Simvastatin [Zocor] 20 mg PO QPM 12/20/17 [History] hydrOXYzine HCl [Hydroxyzine HCl] 25 mg PO DAILY PRN 12/20/17 [History] metFORMIN [Glucophage] 1,000 mg PO QPM 12/20/17 [History] Allergy/AdvReac Type Severity Reaction Status Date / Time Amoxicillin [From Augmentin] Allergy Mild Rash Verified 12/20/17 10:47 clavulanic acid Allergy Mild Rash Verified 12/20/17 10:47 [From Augmentin] Review of Systems Psychiatric: Reports: depression, anxiety Psychiatry Exam - Constitutional Vitals: Temp Pulse Resp BP Pulse Ox 97.5 F L 59 18 101/61 97 12/21/17 07:36 12/21/17 07:36 12/21/17 07:36 12/21/17 07:36 12/21/17 07:36 General appearance: age & developmentally appropriate, well-groomed, well- nourished - Musculoskeletal Gait: normal Station: relaxed Strength & Tone: normal for patient - Psychiatric Patient Orientation: Yes Person, Yes Time, Yes Place Level of alertness: Alert Behavior: calm, cooperative Psychomotor activity: Normal Eye Contact: Maintains Eye Contact Mood Description: Anxious Affect description: congruent with mood, full range Speech Volume: Normal Speech pattern: normal rate, normal rhythm, normal tone, fluent, spontaneous Language & Vocabulary: consistent with education Thought Process: Linear, Goal Oriented Thought Content: No Suicidal ideation, No Homicidal ideation, No Overt delusions Perceptual Disturbances: No Auditory hallucinations, No Visual hallucinations Attention Span Ability: Capable of Focused Attention Memory Description: Grossly Intact Patient Reliability: Questionable Historian Fund of knowledge: Yes abstraction ability, Yes aware of current events Intelligence Estimate: Average Judgment: Fair Insight: Partial Results - Labs Labs: Laboratory Last Values WBC 8.7 K/mcL (4.3-11.1) 12/20/17 00:34 RBC 6.22 M/mcL (4.19-5.50) H 12/20/17 00:34 Hgb 11.9 g/dL (12.9-16.9) L 12/20/17 00:34 Hct 38.8 % (37.5-50.1) 12/20/17 00:34 MCV 62.4 fL (83.0-100.0) L 12/20/17 00:34 MCH 19.1 pg (28.0-33.3) L 12/20/17 00:34 MCHC 30.7 g/dL (31.6-35.5) L 12/20/17 00:34 RDW 18.6 % (11.5-14.5) H 12/20/17 00:34 Plt Count 146 K/mcL (140-400) 12/20/17 00:34 MPV 10.2 fL (9.4-12.4) 12/20/17 00:34 Reticulocyte # 0.10 M/mcL (0.05-0.10) 12/20/17 05:45 Immature Gran % 0.5 % (0-4) 12/20/17 00:34 Seg Neutrophils % 58.3 % 12/20/17 00:34 Lymphocytes % 22.6 % 12/20/17 00:34 Monocytes % 12.1 % 12/20/17 00:34 Eosinophils % 5.7 % 12/20/17 00:34 Basophils % 0.8 % 12/20/17 00:34 Neutrophils # 5.1 K/mcL (1.6-8.9) 12/20/17 00:34 Lymphocytes # 2.0 K/mcL (0.6-4.6) 12/20/17 00:34 Monocytes # 1.1 K/mcL (0.0-1.3) 12/20/17 00:34 Eosinophils # 0.5 K/mcL (0.0-0.6) 12/20/17 00:34 Basophils # 0.1 K/mcL (0.0-0.2) 12/20/17 00:34 Toxic Granulation Present (Not Present) A 12/20/17 00:34 Platelet Estimate Normal (Normal) 12/20/17 00:34 Immature Plt Fraction 7.4 % (1.1-6.1) H 12/20/17 00:34 Hypochromasia Present (Not Present) A 12/20/17 00:34 Anisocytosis 1+ (Not Present) A 12/20/17 00:34 Microcytosis Present (Not Present) A 12/20/17 00:34 Percent Retic 1.8 % (1.6-2.8) 12/20/17 05:45 Immature Retic Fraction 18.5 % (11.0-38.0) 12/20/17 05:45 Retic Hgb Equivalent 20.9 pg (28.61-36.33) L 12/20/17 05:45 Sodium 138 mEq/L (136-145) 12/20/17 00:34 Potassium 3.9 mEq/L (3.5-5.1) 12/20/17 00:34 Chloride 108 mEq/L (98-107) H 12/20/17 00:34 Carbon Dioxide 23 mEq/L (23-29) 12/20/17 00:34 BUN 20 mg/dL (8-23) 12/20/17 00:34 Creatinine 1.18 mg/dL (0.70-1.30) 12/20/17 00:34 Est GFR ( Amer) > 60 (> 60) 12/20/17 00:34 Est GFR (Non-Af Amer) > 60 (> 60) 12/20/17 00:34 BUN/Creatinine Ratio 17 (6-26) 12/20/17 00:34 Glucose 110 mg/dL (70-105) H 12/20/17 00:34 POC Glucose 141 mg/dL (70-99) H 12/20/17 20:02 Calculated Osmolality 289 (280-300) 12/20/17 00:34 Calcium 9.2 mg/dL (8.6-10.3) 12/20/17 00:34 Iron 44 mcg/dL (65-175) L 12/20/17 05:45 % Saturation 17 % (20-55) L 12/20/17 05:45 Transferrin 185 mg/dL (203-362) L 12/20/17 05:45 Ferritin 63 ng/mL (20-250) 12/20/17 05:45 Troponin I < 0.03 ng/mL (< 0.04) 12/20/17 11:55 B-Natriuretic Peptide 27 pg/mL (Less than 100) 12/20/17 00:34 Triglycerides 59 mg/dL (< 150) 12/20/17 05:45 Cholesterol 102 mg/dL (< 200) 12/20/17 05:45 LDL Cholesterol, Calc 48 mg/dL (0-99) 12/20/17 05:45 VLDL Cholesterol, Calc 12 mg/dL (< 31) 12/20/17 05:45 HDL Cholesterol 42 mg/dL (40-59) 12/20/17 05:45 Cholesterol/HDL Ratio 2.4 (0-4.9) 12/20/17 05:45 Urine Opiates Screen Negative ng/mL (Tjlmlh=424) 12/20/17 03:24 Ur Barbiturates Screen Negative ng/mL (Xwqwfe=964) 12/20/17 03:24 Ur Phencyclidine Scrn Negative ng/mL (Cutoff=25) 12/20/17 03:24 Ur Amphetamines Screen Negative ng/mL (Woloei=1303) 12/20/17 03:24 U Benzodiazepines Scrn Negative ng/mL (Vdoynq=909) 12/20/17 03:24 Urine Cocaine Screen Negative ng/mL (Cutoff= 300) 12/20/17 03:24 U Marijuana (THC) Screen Negative ng/mL (Cutoff = 50) 12/20/17 03:24 Ur Drug Screen Interp See Below 12/20/17 03:24 - Impressions Impressions Echocardiogram 12/20/17 15:12 Impressions: LVEF 50-55%. Mild left ventricular diastolic dysfunction. Left ventricular apex not well visualized. Recommend limited study with imaging enhancement. Normal right ventricular structure and function. No significant valvular dysfunction. Consult Discharge Plan - Plan [facility] Provider[facility] - 12/26/17 1:30 pm
[2017-12-21] MEDS: 0.9 % Sodium Chloride 1,000 ML IVC SCH (18:17)
[2017-12-21] MEDS: Melatonin 3 MG TABLET PO SCH (20:27)
[2017-12-22] MEDS: 0.9 % Sodium Chloride 1,000 ML IVC SCH (02:06)
[2017-12-22 05:19] LABS: Mean Corpuscular Volume 62.1 fL (83.0-100.0); Platelet Count 147 K/mcL (140-400)
[2017-12-22 05:21] LABS: Basophils # 0.1 K/mcL (0.0-0.2); Basophils % 0.6 %; Eosinophils # 0.5 K/mcL (0.0-0.6); Eosinophils % 5.6 %; Hematocrit 38.1 % (37.5-50.1); Hemoglobin 11.9 g/dL (12.9-16.9); Immature Granulocytes % 0.2 % (0-4); Immature Platelets 8.5 % (1.1-6.1); Lymphocytes # 1.7 K/mcL (0.6-4.6); Mean Corpuscular HGB Conc 31.2 g/dL (31.6-35.5); Mean Corpuscular Hemoglobin 19.4 pg (28.0-33.3); Mean Platelet Volume 10.5 fL (9.4-12.4); Monocytes # 0.9 K/mcL (0.0-1.3); Monocytes % 10.9 %; Red Blood Count 6.14 M/mcL (4.19-5.50); Red Cell Distribution Width 19.1 % (11.5-14.5); Segmented Neutrophils % 61.7 %
[2017-12-22 05:28] LABS: Neutrophils # 5.1 K/mcL (1.6-8.9)
[2017-12-22 05:31] LABS: BUN/Creatinine Ratio 17 (6-26); Blood Urea Nitrogen 17 mg/dL (8-23); Calcium 8.5 mg/dL (8.6-10.3); Carbon Dioxide 23 mEq/L (23-29); Chloride 105 mEq/L (98-107); Glucose 179 mg/dL (70-105); Osmolality,Calculated 288 (280-300); Potassium 4.6 mEq/L (3.5-5.1); Sodium 136 mEq/L (136-145); eGFR For Non-African Americans > 60 (> 60)
[2017-12-22 06:31] LABS: Microcytosis Present (Not Present)
[2017-12-22 06:32] LABS: Anisocytosis 1+ (Not Present)
[2017-12-22] MEDS: *HR* Heparin 5,000 UNIT/ML VIAL SQ SCH ×2 (06:42→16:43)
[2017-12-22] MEDS ORDERED: Perflutren Lipid Microsphere 1.3 ML in 0.9 % Sodium Chloride 8.7 ML IVP ONE (07:12)
[2017-12-22] MEDS: Aspirin 81 MG TAB.CHEW PO SCH (08:09)
[2017-12-22] MEDS: Loratadine 10 MG TABLET PO SCH (08:09)
[2017-12-22] MEDS: Insulin LISPRO 300 UNITS/3 ML VIAL SQ SCH ×3 (08:24→16:43)
--- NOTE | 2017-12-22 08:26 | Invasive Diagnostic Lab Proc ---
Name: Reyes Suero Date of Study: 12/21/2017 Date: 1955 Ht: 68.1in Medical Record#: [id number] Age: 62 Wt: 204.59lb Gender: Male BSA: 2.07 Order #: [id number] BMI: 31.01 Physicians Procedure Physician: Barney Enciso DO Referring MD: Referring MD: Staff Name Position Time In Rubén Panda RT (R) Scrub 01:04 PM Soledad Mcneil RN Monitor 01:04 PM Lexie Esqueda RN Channel Development Director 01:04 PM Indications Indication Unstable Angina Procedures Performed Procedure L HRT ARTERY/VENTRICLE ANGIO PRQ CARD BOB STENT W/ANGIO 1 VSL Pre-Procedure Checklist Pt not NPO for procedure and MD aware. Blood Pressure: 101/61 Rhythm: NSR Plan of Care Patient will tolerate the procedure without complications. Adequate level of comfort will be maintained. Hemodynamics will remain stable Patient will recover from procedure without complications. Respiratory function will be maintained. Cardiac rhythm will remain stable. Patient temperature will be maintained. Patient and/or family have verbalized understanding of the procedure. Patient Education Chief Complaint/Reason for Test: Cardiac Cath Developmental Category: Adult (18-64 years) Developmentally Appropriate for Age: Yes Learning Barriers: None Education Needs: Procedure Education Method: Verbal Information Taught: Cardiac Cath Educational Evaluation: Able to repeat information Intravenous Access Time IV Size Location DC'd Fluid/Drip Rate Units RN 12:57 PM 20g 1 1/" Patent On Arrival Rt Hand Allergies clavulanic acid Amoxicillin Vital Signs Time BP (mmHg) HR (bpm) O2 Sat. RR (bpm) LOC 12:59 PM 101 / 61 59 97 % 18 5 = Fully awake and oriented or at pre-proc level 01:15 PM / % 5 = Fully awake and oriented or at pre-proc level 01:15 PM / % 4 = Oriented but drowsy 01:31 PM / % 4 = Oriented but drowsy 02:09 PM 132 / 77 63 93 % 17 5 = Fully awake and oriented or at pre-proc level 02:15 PM 146 / 89 56 97 % 16 5 = Fully awake and oriented or at pre-proc level 01:16 PM 187 / 102 132 97 % 24 01:21 PM 158 / 96 60 96 % 21 01:26 PM 149 / 86 60 94 % 21 01:31 PM 141 / 86 60 94 % 14 01:36 PM 152 / 94 68 98 % 21 01:41 PM 147 / 91 70 98 % 23 01:46 PM 148 / 88 65 93 % 10 01:51 PM 147 / 86 59 93 % 12 01:56 PM 145 / 83 64 95 % 19 02:15 PM 137 / 81 57 96 % 16 5 = Fully awake and oriented or at pre-proc level 02:30 PM 164 / 90 55 96 % 18 5 = Fully awake and oriented or at pre-proc level 02:45 PM 160 / 93 57 97 % 16 5 = Fully awake and oriented or at pre-proc level 03:08 PM 164 / 73 57 95 % 16 5 = Fully awake and oriented or at pre-proc level 03:15 PM 148 / 77 55 94 % 16 5 = Fully awake and oriented or at pre-proc level 03:30 PM 159 / 90 58 98 % 16 5 = Fully awake and oriented or at pre-proc level 03:45 PM 153 / 77 58 98 % 16 5 = Fully awake and oriented or at pre-proc level 04:00 PM 145 / 82 54 96 % 16 5 = Fully awake and oriented or at pre-proc level 04:15 PM 155 / 88 56 98 % 18 5 = Fully awake and oriented or at pre-proc level 04:30 PM 164 / 89 57 98 % 18 5 = Fully awake and oriented or at pre-proc level 04:45 PM 177 / 110 73 97 % 18 5 = Fully awake and oriented or at pre-proc level 05:00 PM 169 / 88 58 96 % 18 5 = Fully awake and oriented or at pre-proc level Procedural Medications Time Medication Dose Units Method Given By 01:15 PM Oxygen 2 L/min nasal cannula Lexie Esqueda RN 01:16 PM Versed 2 mg Intravenous Lexie Esqueda RN 01:31 PM Lidocaine 2% 10 ml Subcutaneous Barney Enciso DO 01:49 PM Angiomax 0.75mg/kg bolus: 13.5 ml Intravenous Lexie Esqueda RN 01:49 PM Angiomax 1.75mg/kg/hr: 31.5 ml Intravenous Lexie Esqueda RN ASA Classification: CLASS III- Severe systemic disease (i.e. prior AMI, diabetes with vascular complications, morbid obesity) Justin Score Preprocedure Postprocedure Activity 2- Moves 4 extremities sustained head lift Activity 2- Moves 4 extremities sustained head lift Circulation 2- SBP +/= 20 points of pre-anesthetic level Circulation 2- SBP +/= 20 points of pre-anesthetic level Consciousness 2- Awake and alert oriented x 3 Consciousness 2- Awake and alert oriented x 3 O2 Saturation 2- Able to maintain O2 satruation of 92% on room air O2 Saturation 2- Able to maintain O2 satruation of 92% on room air Respiratory 2- Able to deep breathe and cough well Respiratory 2- Able to deep breathe and cough well Total Score 10 Total Score 10 Contrast Agent: Isovue Total Contrast: 80 ml Fluoro Dose: 5718 mGy Procedure Log Time Note Enter By 01:04 PM Pt arrived to rn labor delivery 2 at 13:04 kmavis 01:04 PM Rubén Panda RT (R) Position: Scrub Time in: : kmavis 01:04 PM Soledad Mcneil RN Position: Monitor Time in: : [facility] 01:04 PM Lexie Esqueda RN Position: Channel Development Director Time in: 13: kmavis 01:04 PM Patient charges- Angio tray pack, Navilyst 3mm J, Pulse Oximetry and ACIST tubing and transducer kmavis 01:05 PM Case Start 01:05 PM CathStat 01:05 PM [ Start or Stop Vital ] 01:10 PM Physician arrived 13:10 kmavis 01:10 PM Holli completed kmavis 01:10 PM Sign in performed according to hospital policy. Informed consent was obtained. kmavis 01:10 PM Procedure start 13:10 kmavis 01:10 PM Hair removed from procedure site in procedure lab using clippers. Bilateral groin prepped with Chloraprep by Lexie Esqueda RN, then patient was draped. Skin intact. kmavis 01:15 PM Recorded ECG: HR=60 Condition=Condition 1 01:15 PM Vitals capture started with the following parameters, Patient=Adult, Interval=5 min, Initial Mpkjhoqa=346 mmHg, Deflation Rate=5 mmHg, Cuff placed on Right Arm 01:15 PM Time: 13:15 Oxygen on at 2 L/min per nasal cannula by Lexie Esqueda RN [facility] :15 PM Time: 13:15 Patient comfortable and pain free: Yes kmavis :15 PM Time: 13:15LOC: 5 = Fully awake and oriented or at pre-proc level kmavis 01:16 PM Time: 13:16 Versed 2 mg Intravenous Given by Lexie Esqueda RN kmavis 01:16 PM WT=447 bpm, UEXU=738/102 mmhg, SpO2=97.0 %, Resp=24 B/min, Comment=nst 01:17 PM ASA Class CLASS III- Severe systemic disease (i.e. prior AMI, diabetes with vascular complications, morbid obesity) kmavis 01:19 PM Pressure channel 2 zeroed. 01:21 PM HR=60 bpm, AGFB=397/96 mmhg, SpO2=96 %, Resp=21 B/min 01:26 PM HR=60 bpm, ZKPN=910/86 mmhg, SpO2=94 %, Resp=21 B/min 01:31 PM HR=60 bpm, ITVM=763/86 mmhg, SpO2=94 %, Resp=14 B/min 01:31 PM Time: 13:15LOC: 4 = Oriented but drowsy kmavis :31 PM Time: 13:15 Patient comfortable and pain free: Yes kmavis :31 PM Time out was performed according to hospital policy. Conscious sedation and anesthesia was achieved (see medication log with in this report above) kmavis :31 PM Time: 13:31 10 ml Lidocaine 2% to right groin Subcutaneous Given by Barney Enciso DO kmavis 01:32 PM Micro-Introducer Kit utilized for sheath placement kmavis 01:36 PM HR=68 bpm, OFXZ=511/94 mmhg, SpO2=98 %, Resp=21 B/min 01:38 PM Access obtained by percutaneous puncture. 6Fr 10cm [place] sheath placed in right Femoral artery. [id number] kmavis 01:41 PM HR=70 bpm, NJKZ=075/91 mmhg, SpO2=98 %, Resp=23 B/min 01:42 PM Recorded Pressure: LV, HR=70, Condition=Condition 1 (Left Ventricle) LV 152/-2/7 01:42 PM Recorded Pressure: LV, HR=67, Condition=Condition 1 (Left Ventricle) LV 153/47/43 01:43 PM 6Fr FR 4 catheter inserted over the wire DN kmavis 01:43 PM Catheter crossed the aortic valve and was selectively placed in the left ventricle. Pressures recorded on pullback for left heart catheterization. kmavis 01:43 PM Bolus angiogram of left Ventricle complete: hand injected kmavis 01:43 PM Catheter removed kmavis 01:43 PM 6Fr FL 4 catheter inserted over the wire DNC kmavis 01:43 PM LCA angiography performed in multiple views. kmavis 01:44 PM Recorded Pressure: Ao, HR=63, Condition=Condition 1 (Aorta) Ao 135/62/89 01:46 PM HR=65 bpm, FDHV=214/88 mmhg, SpO2=93.0 %, Resp=10 B/min 01:46 PM Time: 13:31 Patient comfortable and pain free: Yes kmavis :46 PM Time: 13:31LOC: 4 = Oriented but drowsy kmavis :46 PM Lesion found in Mid LAD. Pre Stenosis: 80 Pre CIPRIANO Flow: kmavis 01:47 PM Lesion found in Mid Circumflex. Pre Stenosis: 40 Pre CIPRIANO Flow: kmavis :47 PM Coronary Dominance: right kmavis 01:47 PM Mid/Distal Left Anterior Descending Coronary Artery and diagonal branches with 80% stenosis. If graft is supplying this area, 0 % stenosis kmavis 01:47 PM Circumflex, Obtuse Marginal, Left Posterior Descending, and Left Posterolateral Coronary Arteries with 40 % stenosis. If graft is supplying this area, 0 % stenosis kmavis 01:49 PM Time: 13:49 Angiomax 0.75mg/kg bolus: 13.5 ml Intravenous Given by Lexie Esqueda RN Crum pump kmavis 01:49 PM Time: 13:49 Angiomax 1.75mg/kg/hr: 31.5 ml Intravenous Given by Lexie Esqueda RN Crum pump kmavis 01:50 PM Inflation device was opened. kmavis 01:51 PM HR=59 bpm, FZAF=744/86 mmhg, SpO2=93.0 %, Resp=12 B/min 01:51 PM 6Fr JL4 Runway guide catheter was used to cannulate the PCI vessel successfully. reused? No kmavis 01:51 PM .014 ChoICE PT Extra Support 300cm guide wire across target lesion- successful. reused? No kmavis 01:52 PM 3.5mm x 16mm Synergy drug-eluting stent across target lesion- successful Lot #[id number] kmavis 01:54 PM Stent deployed @ 14 osraya for 17 seconds kmavis 01:54 PM Stent balloon reinflated @ 16 soraya for 10 seconds kmavis 01:55 PM Stent delivery system removed intact. kmavis 01:56 PM HR=64 bpm, KIUO=364/83 mmhg, SpO2=95.0 %, Resp=19 B/min 01:56 PM Guide catheter removed intact. kmavis 01:56 PM Guide wire removed intact. kmavis 01:56 PM Procedure completed at 13:56 12/21/2017 kmavis 01:56 PM Did you address CIPRIANO flow and Dominance? Yes kmavis 01:57 PM Sign out completed: Radiation Dose 479.96 mGy, 5717.68 cGy/cm2 Fluoro Time: 4.0 Isovue 370 - 200ml contrast 80 ml given by Barney Enciso DO. Complications: None. 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 Cardiac Rehab Consult needed: NoConfirmed administered medications: No kmavis 01:57 PM Sheath left in place to be pulled on floor/holding areaV+Pad kmavis 01:58 PM Estimated Blood Loss: minimal kmavis 01:58 PM Post ECG NSR kmavis 01:58 PM Post Blood Pressure 145/83 kmavis 01:58 PM 13:58 Post Pulses Bilateral DP & PT 2+ kmavis 01:58 PM Information taught PCI and Cardiac Cath kmavis 01:58 PM Education needs Procedure, Plan of Care, Disease Process, and Responsibilities of Patient in Care kmavis 01:58 PM Learning barriers :None kmavis 01:58 PM Education Methods Verbal kmavis 01:59 PM Education evaluation Able to repeat information kmavis 01:59 PM Site status No bleeding/hematoma - Rt Groin as reported by Rubén Panda RT (R) at 13:59 kmavis 01:59 PM Opsite applied kmavis 02:00 PM Delay to floor Bed availability kmavis 02:00 PM Patient out of room: 14:00 kmavis 02:01 PM WYEP=060/81 mmhg 02:02 PM Complications: None kmavis 02:02 PM Report given to Gilbert LATHAM Pt taken to Holding room Room #3. 14:02 kmavis 02:03 PM Plavix, Effient or Brilinta given No kmavis 02:22 PM Patient voided 200 cc dark yellow per urinal. kwitte 04:08 PM Right femoral artery sheath pulled per this RN. Manual pressure being held with Vpad. itte 04:23 PM Hemostasis obtained to right femoral artery. Dressing with opsite applied. Patient educated on post sheath pull and instructions. Patient verbalized understanding. kwitte 04:52 PM Patient assisted with post cath food tray. kwitte 05:12 PM Delay to floor Bed availability kwitte 05:12 PM Complications: None kwitte 05:13 PM Report given to Gloria LATHAM Pt taken to Holding room Room #[id number]. 17:12 kwitte 05:14 PM Patient out of room: 17:14 kwitte Complications Complication None None None Hemodynamics Pressures Site Systolic/A Wave Diastolic/V Wave Mean LV 152 -2 7 LV 153 47 43 AO 135 62 89 Post Procedure Information Blood Pressure: 145/83 mmHg Rhythm: NSR Post procedural instructions were given Site Checks Time Location Status Staff Sheath In? Note 01:59 PM Rt Groin No bleeding/hematoma Rubén Panda RT (R) Yes 02:08 PM Rt Groin No bleeding/ No Hematoma Dalia Solis RT Yes 02:15 PM Rt Groin No bleeding/ No Hematoma Gilbert Lea RN Yes 02:30 PM Rt Groin No bleeding/ No Hematoma Gilbert Lea RN Yes 02:45 PM Rt Groin No bleeding/ No Hematoma Gilbert Lea RN Yes 03:00 PM Rt Groin No bleeding/ No Hematoma Gilbert Lea RN Yes 03:15 PM Rt Groin No bleeding/ No Hematoma Gilbert Lea RN Yes 03:30 PM Rt Groin No bleeding/ No Hematoma Gilbert Lea RN Yes 03:45 PM Rt Groin No bleeding/ No Hematoma Gilbert Lea RN Yes 04:00 PM Rt Groin No bleeding/ No Hematoma Gilbert Lea RN Yes 04:15 PM Rt Groin No bleeding/ No Hematoma Gilbert Lea RN 04:30 PM Rt Groin No bleeding/ No Hematoma Gilbert Lea RN 04:45 PM Rt Groin No bleeding/ No Hematoma Gilbert Lea RN 05:00 PM Rt Groin No bleeding/ No Hematoma Gilbert Lea RN Pulses Time Site Pre-Procedure Post-Procedure Note 12/21/2017 12:59:00 PM Bilateral radial 2+ 12/21/2017 12:59:00 PM Bilateral DP 2+ 1:58:00 PM Bilateral DP & PT 2+ 12/21/2017 2:15:00 PM Bilateral DP & PT 2+ 12/21/2017 2:30:00 PM Bilateral DP & PT 2+ 12/21/2017 3:00:00 PM Bilateral DP & PT 2+ 12/21/2017 4:00:00 PM Bilateral DP & PT 2+ Updated by Larissa Rousseau RT (R) on 12/22/2017 8:19:51 AM RT Angie electronically signed on 12/22/2017 8:20:17 AM with status of Final
--- NOTE | 2017-12-22 08:33 | Internal Med Progress Note ---
Hospitalist Progress Note - Encounter Date of Encounter: 12/22/17 Time of Encounter: 12:00 - Exam Vitals: Temp Pulse Resp BP Pulse Ox 97.5 F L 61 16 116/75 92 12/22/17 08:23 12/22/17 08:23 12/22/17 04:00 12/22/17 08:23 12/22/17 08:23 Exam: Gen - Awake, alert, oriented x 3, no acute distress HEENT - NCAT, PERRLA, EOMI, hearing grossly intact, oropharynx benign CV - RRR, normal S1 and S2, no M/R/G, no BLE edema Resp - Normal WOB, CTAB, no W/R/R GI - Soft, NT/ND, no masses, normal bowel sounds, Skin - Warm, dry, no rashes/lesions/ulcers - Assessment and Plan (1) Acute coronary syndrome Current Visit: Yes Status: Acute Assessment and Plan: ACS with unstable angina. Echo showed new wall motion abnormalities. Patient is s/p C with drug eluting stent in mid LAD Continue aspirin, plavix, statin and aggressive risk factor modification. cardiology and psych recs for discharge planning (2) Coronary artery disease Current Visit: Yes Status: Chronic Assessment and Plan: Continues to complain of midsternal chest pain radiating up over the left arm and clavicle shoulder he is pending C today. Echo shows LVEF of 50-55% with mild left ventricular diastolic dysfunction. s/p [facility] with stent placement (3) Diabetes Current Visit: Yes Status: Chronic Assessment and Plan: Glucose today is 110 we will continue with his insulin and diabetic diet will continue to monitor (4) Hypertension Current Visit: Yes Status: Chronic Assessment and Plan: Continue home meds (5) Anemia Current Visit: Yes Status: Chronic Assessment and Plan: Anemia is chronic due to a history of substance abuse, poor nutrition and homelessness. Consults with the nurse navigators and mental health social worker are completed and in process. 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 director of community services and the nurse navigator will continue to investigate placement for this gentleman to find him home if possible. Once testing is completed we will continue with a cardiac diet and monitor her CBC. We will start him on a multivitamin daily (6) Chest pain Current Visit: Yes Status: Acute Assessment and Plan: History of coronary artery disease [place] hyperlipidemia multiple risk factors for heart attack diabetes type 2. s/p [facility] with drug eluting stent placement in mid LAD (7) Substance use disorder Current Visit: Yes Status: Acute Assessment and Plan: Chronic we will continue to monitor for DTs (8) DVT prophylaxis Current Visit: Yes Status: Acute Assessment and Plan: Continue with heparin and Plavix (9) Suicidal thoughts Current Visit: Yes Status: Acute Assessment and Plan: Patient is documented as having suicidal ideation and thoughts or statements to the social work job titles that if it was not for my Have Nothing to Live for". It claudia ears that this is due to his social situation of homelessness he has history of drug abuse and antisocial behavior with bile appears that he has exhausted communal resources of the [place] and any governmental properties he has also been barred from his apartment and infected and part from the complex as his girlfriend lives in the same complex. He states that he lives anywhere there is a halfway over his head such as raise under bridges etc he stated before he was admitted he did have suicidal thoughts with plan however he is reluctant to respond on those suicidal thoughts and plans today he denies any suicidal thoughts with a plan we are going to go ahead and put him on one-on-one watch and obtain a psychiatric consult . 12/22. Psych following and appreciate recs - Time Spent with Patient Total time spent is greater than 50% in coordination of care (as documented) at patient's floor/unit and/or counseling patient: Internal Medicine: Result - Labs CBC & Chem 7: 12/22/17 04:29 12/22/17 04:29 Labs: Short CBC 12/22/17 Range/Units 04:29 WBC 8.2 (4.3-11.1) K/mcL Hgb 11.9 L (12.9-16.9) g/dL Hct 38.1 (37.5-50.1) % Plt Count 147 (140-400) K/mcL Neutrophils # 5.1 (1.6-8.9) K/mcL BMP 12/22/17 04:29 Sodium 136 Potassium 4.6 Chloride 105 Carbon Dioxide 23 BUN 17 Creatinine 0.98 Glucose 179 H Calcium 8.5 L - Impressions Impressions Echocardiogram 12/20/17 15:12 Impressions: LVEF 50-55%. Mild left ventricular diastolic dysfunction. Left ventricular apex not well visualized. Recommend limited study with imaging enhancement. Normal right ventricular structure and function. No significant valvular dysfunction. Consult Discharge Plan - Plan Additional Instructions: RISK FACTORS: STOP SMOKING: If you smoke, STOP. Smoking or tobacco use significantly increases your risk of heart disease because nicotine causes the arteries to narrow or constrict. It also causes fats to stick to the artery. Your chances of having a heart attack are greatly increased if you continue to smoke. For more information, call the education line for smoking cessation 6-104-[id number] EAT A LOW FAT/CHOLESTEROL/SODIUM DIET: This diet may help reduce your chances of having a heart attack. LIFTING: Avoid lifting anything more than 10 pounds for 5-7 days Prior to straining, laughing, sneezing and/or coughing, apply manual pressure directly over insertion site. ACTIVITY: You may walk or climb stairs as tolerated You can resume sexual activity as tolerated In general, you are encouraged to engage in a minimum of 30 minutes or more of moderate intensity physical activity, such as brisk walking, daily or at least 3-4 times weekly BATHING Do not submerge the site into water (bath tub, hot tub, swimming pool) for 1 we ek. This can be a source for infection into the blood stream. You may shower after 24 hours SITE CARE: After 24 hours, you may remove the dressing and leave the site open to air. Keep the site clean and dry. Clean gently and pat dry. You can expect bruising and tenderness that gradually resolve within a week or two. Return to work as instructed per your physician Resume driving as instructed per physician Keep all scheduled follow up appointments Resume medications as instructed IMPORTANT: If prescribed a Platelet Aggregation Inhibitor such as, Plavix, Brilinta or Effient: Duration of therapy is minimum one year These medications are often used in combination with Aspirin in prevention of future heart attacks Never discontinue unless consult with your Auto Dealer STROKE (CVA) Risk factors for a stroke are: Age, cigarette smoking, diabetes, excessive alcohol consumption, family history, high blood pressure, overweight, physical inactivity, prior stroke, heart attack, diagnosis of carotid artery stenosis or other artery disease. Warning signs: Sudden numbness or weakness of the face, arm or leg; especially on one side of the body, sudden confusion, trouble speaking or understanding, sudden trouble seeing in one or both eyes, sudden trouble walking, dizziness, loss of balance or coordination, sudden severe headache with no cause. Call 911 or go to the Emergency Room. CONGESTIVE HEART FAILURE: If you have been diagnosed with Congestive Heart Failure (CHF) and your symptoms return, make an appointment with your physician Weigh yourself daily. Notify your physician if you have a weight gain of two or more pounds in one day or five or more pounds in one week. If you experience any difficulty breathing, please call 911 BLEEDING: Although the risk of bleeding is minimal, it can happen. If you have any bleeding from the site, apply firm pressure above the puncture site for 10-15 minutes. If the bleeding does not stop, continue manual pressure and call 911 Contact your physician if: You develop a fever greater than 101 degrees Fahrenheit Your site becomes reddened or has any drainage You have an increase in pain or burning at the site or if a large knot forms at the site. If you experience chest pain, shortness of breath, dizziness, or extreme tiredness, stop the activity and rest. Please notify your physicians office if you experience any of these symptoms and they are not relieved by rest please call 911! Referrals: ELEANOR,PCP [Primary Care Provider] - 12/26/17 1:30 pm __ (2) Coronary artery disease Qualifiers: Coronary Disease-Associated Artery/Lesion type: [place] artery [place] vs. transplanted heart: [place] heart Associated angina: angina presence unspecified Qualified Code(s): I25.10 - Atherosclerotic heart disease of [place] coronary artery without angina pectoris (3) Diabetes Qualifiers: Diabetes mellitus type: type 2 Diabetes mellitus uniform attendant insulin use: with uniform attendant use Diabetes mellitus complication status: with kidney complications Diabetes mellitus complication detail: with chronic kidney disease Chronic kidney disease stage: stage 3 (moderate) Qualified Code(s): E11.22 - Type 2 diabetes mellitus with diabetic chronic kidney disease; N18.3 - Chronic kidney disease, stage 3 (moderate); 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
--- NOTE | 2017-12-22 09:48 | Cardiology Progress Note ---
Date of Encounter: 12/22/17 Time of Encounter: 09:46 Assessment and Plan (1) Coronary artery disease Current Visit: Yes Status: Chronic S/P LHC yesterday with BOB to mLAD. DAPT (ASA and Plavix) uninterrupted x 1 year. Pt verbalizes understanding. Continue Statin, BB, ACEi. Right femoral access site healing well. No bleeding, hematoma or ecchymosis no jorge. Restrictions discussed. TTE EF preserved, apex hypokinetic. Reports recommends repeated limited TTE with definity since apex was not well visualized. Completed, results pending. Cardiology signing off. Reconsult PRN. Will coordinate outpt follow-up in 3-4 weeks. Qualifiers: Coronary Disease-Associated Artery/Lesion type: [place] artery [place] vs. transplanted heart: [place] heart Associated angina: angina presence unspecified Qualified Code(s): I25.10 - Atherosclerotic heart disease of [place] coronary artery without angina pectoris (2) Chest pain Current Visit: Yes Status: Resolved Presented with CP/left shoulder discomfort. Troponins negative. TTE apex wall was hypokinetic--new wall motion abnormality compared to 06/2016. LHC yesterday with BOB to mLAD--LHC impressions report needs corrected. Currently chest pain free. Shoulder pain resolved as well. Qualifiers: Chest pain type: unspecified Qualified Code(s): R07.9 - Chest pain, unspecified (3) Cocaine abuse Current Visit: No Status: Acute Hx of cocaine abuse. Drug tox negative on admission. Would recommend avoiding beta blockers with cocaine use. Discussion w patient/family: The assessment and plan as outlined above was discussed with the patient and/or family members who expressed understanding and agreement. All questions were answered. Thank you for involving us in the care of your patient. Please call with any questions. I will discuss all the above with Dr. Moise and make changes as necessary. Subjective Principal diagnosis: CAD Interval history: S/P LHC yesterday--BOB to mLAD. Pt denies chest/shoulder discomfort. No acute cardiac complaints. Objective Vital Signs, Last 4 Hours Temp Pulse BP Pulse Ox 12/22/17 08:23 97.5 F L 61 116/75 92 Vital Signs Temp Pulse Resp BP Pulse Ox 12/22/17 08:23 97.5 F L 61 116/75 92 12/22/17 04:00 98.2 F 53 16 119/70 93 12/22/17 00:38 98.2 F 57 16 101/58 93 12/21/17 20:39 93 12/21/17 20:00 62 16 132/75 93 12/21/17 19:28 60 16 95 12/21/17 19:15 60 16 143/82 95 12/21/17 18:45 67 16 141/85 94 12/21/17 18:19 98.2 F 63 17 141/85 94 12/21/17 18:15 16 152/80 92 12/21/17 18:14 98.2 F 63 17 141/85 94 12/21/17 18:00 64 18 136/85 94 12/21/17 17:45 97.7 F 64 16 168/89 95 12/21/17 17:30 97.9 F 59 16 151/101 96 Intake and Output 12/21/17 12/22/17 12/22/17 23:59 07:59 15:59 Intake Total 240 / 240 1180 / 1180 240 / 240 Balance 240 / 240 1180 / 1180 240 / 240 Intake: IV Fluids 1000 / 1000 0.9 % Sodium Chloride 1,000 ML 1000 / 1000 @ 100 mls/hr IVC .Q10H GEORGE Rx#: [id number] Oral 240 / 240 180 / 180 240 / 240 Other: Meal Breakfast Percent of Meal Consumed 100% # Voids 1 Weight 93 kg 93 kg Blood Glucose* 308 266 Patient Weight 12/22/17 23:59 Weight 93 kg General: Conversant, No Apparent Distress HEENT: Atraumatic, Normocephaly, Mucus Membranes Moist Neck: No JVD, Normal carotid pulses Cardiac: Reg Rate and Rhythm, Normal S1 and S2, No Murmur Lungs: Normal Breath Sounds, No Wheeze, Rales, Rhonchi Neuro: Alert and responsive, No focal deficits noted Abdomen: Soft, Non-Tender Skin: Other (right femoral access site healing well. No bleeding, hematoma or ecchymosis noted.) Musculoskeletal: No Chest Wall Tenderness Extremities: No Clubbing, No Cyanosis, No Edema, Normal Pulses Results 12/22/17 04:29 12/22/17 04:29 Lab Results 12/22/17 12/22/17 04:29 04:29 WBC 8.2 Hgb 11.9 L Hct 38.1 Plt Count 147 Sodium 136 Potassium 4.6 Chloride 105 Carbon Dioxide 23 BUN 17 Creatinine 0.98 Glucose 179 H Calcium 8.5 L Short CBC 12/22/17 Range/Units 04:29 WBC 8.2 (4.3-11.1) K/mcL Hgb 11.9 L (12.9-16.9) g/dL Hct 38.1 (37.5-50.1) % Plt Count 147 (140-400) K/mcL Neutrophils # 5.1 (1.6-8.9) K/mcL BMP 12/22/17 Range/Units 04:29 Sodium 136 (136-145) mEq/L Potassium 4.6 (3.5-5.1) mEq/L Chloride 105 (98-107) mEq/L Carbon Dioxide 23 (23-29) mEq/L BUN 17 (8-23) mg/dL Creatinine 0.98 (0.70-1.30) mg/dL Glucose 179 H (70-105) mg/dL Calcium 8.5 L (8.6-10.3) mg/dL Impressions Echocardiogram 12/20/17 15:12 Impressions: LVEF 50-55%. Mild left ventricular diastolic dysfunction. Left ventricular apex not well visualized. Recommend limited study with imaging enhancement. Normal right ventricular structure and function. No significant valvular dysfunction. Active Medications Aspirin (Aspirin) 81 mg PO QAM [facility] Stop: 06/21/18 09:01 Last Admin: 12/22/17 08:09 Dose: 81 mg Clopidogrel Bisulfate (Plavix) 75 mg PO DAILY [facility] Stop: 06/21/18 09:01 Last Admin: 12/22/17 08:09 Dose: 75 mg Dextrose/Water (Dextrose 50% (Syg)) 25 ml IVP AD PRN PRN Reason: Hypoglycemia Stop: 06/21/18 09:38 Gabapentin (Neurontin) 300 mg PO TID PRN PRN Reason: Pain Stop: 06/21/18 11:29 Glucagon (Glucagen) 1 mg IM ONCE PRN PRN Reason: Hypoglycemia Stop: 06/21/18 09:38 Glucose (Gluctose) 15 gm PO ONCE PRN PRN Reason: Hypoglycemia Stop: 06/21/18 09:38 Glucose (Gluctose) 30 gm PO ONCE PRN PRN Reason: Hypoglycemia Stop: 04/25/19 09:38 Heparin Sodium (Porcine) (Heparin) 5,000 unit SQ Q8HCO [facility] Stop: 06/21/18 06:01 Last Admin: 12/22/17 06:42 Dose: Not Given Hydroxyzine Pamoate (Hydroxyzine Pamoate) 25 mg PO DAILY PRN PRN Reason: Anxiety Dextrose (Dextrose 5%) 1,000 mls @ 100 mls/hr IVC .Q10H PRN PRN Reason: HYPOGLYCEMIA Stop: 06/21/18 09:38 Sodium Chloride (0.9 % Sodium Chloride) 1,000 mls @ 100 mls/hr IVC .Q10H [facility] Stop: 06/22/18 14:31 Last Admin: 12/22/17 02:06 Dose: 100 mls/hr Insulin Human Lispro (Humalog) 0 units SQ TIDAC [facility]; Protocol Stop: 06/21/18 11:31 Last Admin: 12/22/17 08:24 Dose: Not Given Insulin Human Lispro (Humalog) 0 units SQ HS [facility]; Protocol Stop: 06/21/18 21:01 Last Admin: 12/21/17 21:21 Dose: 5 units Lisinopril (Zestril) 5 mg PO HS [facility]; Protocol Stop: 06/21/18 21:01 Last Admin: 12/21/17 20:27 Dose: 5 mg Loratadine (Claritin) 10 mg PO DAILY [facility] Stop: 06/21/18 09:01 Last Admin: 12/22/17 08:09 Dose: 10 mg Melatonin (Melatonin) 6 mg PO HS [facility] Stop: 06/21/18 21:01 Last Admin: 12/21/17 20:27 Dose: 6 mg Metoprolol Tartrate (Lopressor) 25 mg PO BID [facility] Stop: 06/21/18 21:01 Last Admin: 12/22/17 08:09 Dose: 25 mg Omeprazole (Prilosec) 20 mg PO DAILY [facility]; Protocol Stop: 06/22/18 09:01 Last Admin: 12/22/17 08:09 Dose: 20 mg Sertraline HCl (Zoloft) 100 mg PO DAILY [facility] Stop: 06/22/18 09:01 Last Admin: 12/22/17 08:09 Dose: 100 mg Simvastatin (Zocor) 20 mg PO HS [facility]; Protocol Stop: 06/21/18 21:01 Last Admin: 12/21/17 20:26 Dose: 20 mg - Imaging and Cardiology Echo: report reviewed Cardiac cath: report reviewed - EKG Interpretation EKG results cardiology: other (12 hr tele AVG HR 60, SR, no significant pauses or arrhythmias) Consult Discharge Plan - Plan Additional Instructions: RISK FACTORS: STOP SMOKING: If you smoke, STOP. Smoking or tobacco use significantly increases your risk of heart disease because nicotine causes the arteries to narrow or constrict. It also causes fats to stick to the artery. Your chances of having a heart attack are greatly increased if you continue to smoke. For more information, call the education line for smoking cessation 7-595-IWQYDIG EAT A LOW FAT/CHOLESTEROL/SODIUM DIET: This diet may help reduce your chances of having a heart attack. LIFTING: Avoid lifting anything more than 10 pounds for 5-7 days Prior to straining, laughing, sneezing and/or coughing, apply manual pressure directly over insertion site. ACTIVITY: You may walk or climb stairs as tolerated You can resume sexual activity as tolerated In general, you are encouraged to engage in a minimum of 30 minutes or more of moderate intensity physical activity, such as brisk walking, daily or at least 3-4 times weekly BATHING Do not submerge the site into water (bath tub, hot tub, swimming pool) for 1 week. This can be a source for infection into the blood stream. You may shower after 24 hours SITE CARE: After 24 hours, you may remove the dressing and leave the site open to air. Keep the site clean and dry. Clean gently and pat dry. You can expect bruising and tenderness that gradually resolve within a week or two. Return to work as instructed per your physician Resume driving as instructed per physician Keep all scheduled follow up appointments Resume medications as instructed IMPORTANT: If prescribed a Platelet Aggregation Inhibitor such as, Plavix, Brilinta or Effient: Duration of therapy is minimum one year These medications are often used in combination with Aspirin in prevention of future heart attacks Never discontinue unless consult with your Bindery Helper STROKE (CVA) Risk factors for a stroke are: Age, cigarette smoking, diabetes, excessive alcohol consumption, family history, high blood pressure, overweight, physical inactivity, prior stroke, heart attack, diagnosis of carotid artery stenosis or other artery disease. Warning signs: Sudden numbness or weakness of the face, arm or leg; especially on one side of the body, sudden confusion, trouble speaking or understanding, sudden trouble seeing in one or both eyes, sudden trouble walking, dizziness, loss of balance or coordination, sudden severe headache with no cause. Call 911 or go to the Emergency Room. CONGESTIVE HEART FAILURE: If you have been diagnosed with Congestive Heart Failure (CHF) and your symptoms return, make an appointment with your physician Weigh yourself daily. Notify your physician if you have a weight gain of two or more pounds in one day or five or more pounds in one week. If you experience any difficulty breathing, please call 911 BLEEDING: Although the risk of bleeding is minimal, it can happen. If you have any bleeding from the site, apply firm pressure above the puncture site for 10-15 minutes. If the bleeding does not stop, continue manual pressure and call 911 Contact your physician if: You develop a fever greater than 101 degrees Fahrenheit Your site becomes reddened or has any drainage You have an increase in pain or burning at the site or if a large knot forms at the site. If you experience chest pain, shortness of breath, dizziness, or extreme tiredness, stop the activity and rest. Please notify your physicians office if you experience any of these symptoms and they are not relieved by rest please call 911! [facility] Provider[facility] - 12/26/17 1:30 pm
[2017-12-22] MEDS ORDERED: Insulin DETEMIR 100 UNIT/ML X5UNITS SQ STA (10:31)
[2017-12-22 16:35] VITALS: BP 150/88
--- NOTE | 2017-12-22 19:22 | Consult Note ---
Addendum entered and electronically signed by Cristhian Kinney MD 12/22/17 16:10: patient to be transferred to [facility], involuntary hold. Original Note: Date of Encounter: 12/22/17 Time of Encounter: 14:00 Assessment & Recommendation (1) Chronic post-traumatic stress disorder Current visit: Yes Status: Acute (2) Passive suicidal ideations Current visit: Yes Status: Chronic (3) Cocaine dependence, uncomplicated Current visit: Yes Status: Acute (4) Homeless single person Current visit: Yes Status: Acute History of Present Illness Patient: known to practice within the last 3 years Requesting Physician: Miranda Tucker Reason for consult: patient with SI History of present illness: Mr. Suero is a 62 year old male CC: I am homeless, I can't say what I will do. HPI : . The patient has a history of psychiatric hospitalizations he was recently hospitalized at the [facility] December 05, December 07, December 18. He was discharged and was seen in the urgent care and sent directly from the [place] urgent care to [facility]. He was treated for acute coronary syndrome and tolerated the procedure well. Since then the patient has made statements about self-harm and injury. The patient has stated that he is not accepted back to the [facility] however I have filled out a pink slip. The patient will be accepted in voluntarily to the [facility] on 1025 2017. Some of the paperwork is being faxed over and the pink slip will be taken up to the floor. The patient will need to be transferred to the [facility] after the completion of the paperwork. I will notify the attending physician. The patient has a history of suicide attempts suicide behavior. He has other behavior that has warranted a diagnosis of malingering. But the primary psychiatric diagnosis is post manic stress disorder suicidal ideation. Cocaine dependence and homelessness are contributing factors. CC: Miranda Tucker Past Med Surg Social Fam HX - Past Medical History Medical history: coronary artery disease, CVA, diabetes, hypertension, myocardial infarction, renal disease - Past Psychiatric History Psychiatric history: Reports: PTSD, prior suicide attempt, previous psychiatric hospitalization, other - Past Surgical History Surgical History: other - Social History Smoking Status: Never smoker Smokeless Tobacco Status: No Alcohol use: none Drug use: cocaine, IV Drug Use Occupational status: disabled Current living situation: Homeless Activity Level: Independent ambulation Recent Out of Country Travel Within the Last 8 Weeks: Yes Exposure or Possible Exposure to Illness During Travel: Yes - Family History Mother Name: Makeda Living Status: Age at : 78 Cause of : DE Hx Family Cardiac Disorders: Yes (DE) Brother Name: Hector Suero Living Status: Age at : 45 Cause of : DM Hx Family Endocrine Disorder: Yes (DM) Medications & Allergies Aspirin 81 mg PO DAILY 10/27/14 [History] Clopidogrel [Plavix] 75 mg PO DAILY 06/30/16 [History] Acetaminophen [Non-Aspirin] 650 mg PO Q8H PRN 12/20/17 [History] Dextrose/Vitamin D3 [Trueplus Glucose 4 gm Tab Chew] 4 tab PO DAILY PRN 12/20/17 [History] Gabapentin [Neurontin] 300 mg PO TID PRN 12/20/17 [History] Insulin ASPART [NovoLOG] 10 unit SQ TID 12/20/17 [History] Insulin Glargine,Hum.rec.anlog [Lantus Solostar] 43 unit SQ DAILY 12/20/17 [History] Lisinopril [Zestril] 5 mg PO HS 12/20/17 [History] Melatonin 6 mg PO HS 12/20/17 [History] Metoprolol [Lopressor] 25 mg PO BID 12/20/17 [History] Multivit-Min/FA/Lycopen/Lutein [Centrum Silver Men Tablet] 1 each PO QAM 12/20/17 [History] Omeprazole [PriLOSEC] 20 mg PO DAILY 12/20/17 [History] Sertraline [Zoloft] 100 mg PO DAILY 12/20/17 [History] Sildenafil Citrate 100 mg PO DAILY PRN 12/20/17 [History] Simvastatin [Zocor] 20 mg PO QPM 12/20/17 [History] hydrOXYzine HCl [Hydroxyzine HCl] 25 mg PO DAILY PRN 12/20/17 [History] metFORMIN [Glucophage] 1,000 mg PO QPM 12/20/17 [History] Allergy/AdvReac Type Severity Reaction Status Date / Time Amoxicillin [From Augmentin] Allergy Mild Rash Verified 12/20/17 10:47 clavulanic acid Allergy Mild Rash Verified 12/20/17 10:47 [From Augmentin] Review of Systems Psychiatric: Reports: depression, anxiety, suicidal ideation Psychiatry Exam - Constitutional Vitals: Temp Pulse Resp BP Pulse Ox 97.7 F 60 12 141/78 97 12/22/17 10:56 12/22/17 10:56 12/22/17 10:56 12/22/17 10:56 12/22/17 10:56 General appearance: age & developmentally appropriate, well-groomed, well- nourished - Musculoskeletal Gait: normal Station: relaxed Strength & Tone: normal for patient - Psychiatric Patient Orientation: Yes Person, Yes Time, Yes Place Level of alertness: Alert Behavior: calm, cooperative Psychomotor activity: Normal Eye Contact: Maintains Eye Contact Affect description: congruent with mood, full range Speech Volume: Normal Speech pattern: normal rate, normal rhythm, normal tone, fluent, spontaneous Language & Vocabulary: consistent with education Thought Process: Linear, Goal Oriented Thought Content: Yes Suicidal ideation, No Homicidal ideation, No Overt delusions Perceptual Disturbances: No Auditory hallucinations, No Visual hallucinations Attention Span Ability: Capable of Focused Attention Memory Description: Grossly Intact Patient Reliability: Questionable Historian Fund of knowledge: Yes abstraction ability, Yes aware of current events Intelligence Estimate: Average Judgment: Limited Insight: Minimal Results - Labs Labs: Laboratory Last Values WBC 8.2 K/mcL (4.3-11.1) 12/22/17 04:29 RBC 6.14 M/mcL (4.19-5.50) H 12/22/17 04:29 Hgb 11.9 g/dL (12.9-16.9) L 12/22/17 04:29 Hct 38.1 % (37.5-50.1) 12/22/17 04:29 MCV 62.1 fL (83.0-100.0) L 12/22/17 04:29 MCH 19.4 pg (28.0-33.3) L 12/22/17 04:29 MCHC 31.2 g/dL (31.6-35.5) L 12/22/17 04:29 RDW 19.1 % (11.5-14.5) H 12/22/17 04:29 Plt Count 147 K/mcL (140-400) 12/22/17 04:29 MPV 10.5 fL (9.4-12.4) 10/26/18 04:29 Reticulocyte # 0.10 M/mcL (0.05-0.10) 12/20/17 05:45 Immature Gran % 0.2 % (0-4) 12/22/17 04:29 Seg Neutrophils % 61.7 % 12/22/17 04:29 Lymphocytes % 21.0 % 12/22/17 04:29 Monocytes % 10.9 % 12/22/17 04:29 Eosinophils % 5.6 % 12/22/17 04:29 Basophils % 0.6 % 12/22/17 04:29 Neutrophils # 5.1 K/mcL (1.6-8.9) 12/22/17 04: Lymphocytes # 1.7 K/mcL (0.6-4.6) 12/22/17 04: Monocytes # 0.9 K/mcL (0.0-1.3) 12/22/17 04:29 Eosinophils # 0.5 K/mcL (0.0-0.6) 12/22/17 04: Basophils # 0.1 K/mcL (0.0-0.2) 12/22/17 04:29 Toxic Granulation Present (Not Present) A 12/20/17 00:34 Platelet Estimate Normal (Normal) 12/20/17 00:34 Immature Plt Fraction 8.5 % (1.1-6.1) H 12/22/17 04:29 Hypochromasia Present (Not Present) A 12/20/17 00:34 Anisocytosis 1+ (Not Present) A 12/22/17 04:29 Microcytosis Present (Not Present) A 12/22/17 04:29 Percent Retic 1.8 % (1.6-2.8) 12/20/17 05:45 Immature Retic Fraction 18.5 % (11.0-38.0) 12/20/17 05:45 Retic Hgb Equivalent 20.9 pg (28.61-36.33) L 12/20/17 05:45 Sodium 136 mEq/L (136-145) 12/22/17 04:29 Potassium 4.6 mEq/L (3.5-5.1) 12/22/17 04:29 Chloride 105 mEq/L (98-107) 12/22/17 04:29 Carbon Dioxide 23 mEq/L (23-29) 12/22/17 04:29 BUN 17 mg/dL (8-23) 12/22/17 04:29 Creatinine 0.98 mg/dL (0.70-1.30) 12/22/17 04:29 Est GFR ( Amer) > 60 (> 60) 12/22/17 04:29 Est GFR (Non-Af Amer) > 60 (> 60) 12/22/17 04:29 BUN/Creatinine Ratio 17 (6-26) 12/22/17 04:29 Glucose 179 mg/dL (70-105) H 12/22/17 04:29 POC Glucose 245 mg/dL (70-99) H 12/22/17 11:02 Calculated Osmolality 288 (280-300) 12/22/17 04:29 Calcium 8.5 mg/dL (8.6-10.3) L 12/22/17 04:29 Iron 122 mcg/dL (65-175) 12/21/17 18:14 % Saturation 17 % (20-55) L 12/20/17 05:45 Transferrin 185 mg/dL (203-362) L 12/20/17 05:45 Ferritin 63 ng/mL (20-250) 12/20/17 05:45 Troponin I < 0.03 ng/mL (< 0.04) 12/20/17 11:55 B-Natriuretic Peptide 27 pg/mL (Less than 100) 12/20/17 00:34 Triglycerides 59 mg/dL (< 150) 12/20/17 05:45 Cholesterol 102 mg/dL (< 200) 12/20/17 05:45 LDL Cholesterol, Calc 48 mg/dL (0-99) 12/20/17 05:45 VLDL Cholesterol, Calc 12 mg/dL (< 31) 12/20/17 05:45 HDL Cholesterol 42 mg/dL (40-59) 12/20/17 05:45 Cholesterol/HDL Ratio 2.4 (0-4.9) 12/20/17 05:45 Urine Opiates Screen Negative ng/mL (Akflcx=793) 12/20/17 03:24 Ur Barbiturates Screen Negative ng/mL (Apatrq=848) 12/20/17 03:24 Ur Phencyclidine Scrn Negative ng/mL (Cutoff=25) 12/20/17 03:24 Ur Amphetamines Screen Negative ng/mL (Egfmwf=8962) 12/20/17 03:24 U Benzodiazepines Scrn Negative ng/mL (Pnkzue=785) 12/20/17 03:24 Urine Cocaine Screen Negative ng/mL (Cutoff= 300) 12/20/17 03:24 U Marijuana (THC) Screen Negative ng/mL (Cutoff = 50) 12/20/17 03:24 Ur Drug Screen Interp See Below 12/20/17 03:24 - Impressions Impressions Echocardiogram Limited Views 12/22/17 07:00 Impressions: Limited Echo. LVEF 65%. Normal LV chamber size, wall thickness and systolic function. Normal right ventricular structure and function. Consult Discharge Plan - Plan Additional Instructions: RISK FACTORS: STOP SMOKING: If you smoke, STOP. Smoking or tobacco use significantly increases your risk of heart disease because nicotine causes the arteries to narrow or constrict. It also causes fats to stick to the artery. Your chances of having a heart attack are greatly increased if you continue to smoke. For more information, call the education line for smoking cessation 3-106-WHYWYJF EAT A LOW FAT/CHOLESTEROL/SODIUM DIET: This diet may help reduce your chances of having a heart attack. LIFTING: Avoid lifting anything more than 10 pounds for 5-7 days Prior to straining, laughing, sneezing and/or coughing, apply manual pressure directly over insertion site. ACTIVITY: You may walk or climb stairs as tolerated You can resume sexual activity as tolerated In general, you are encouraged to engage in a minimum of 30 minutes or more of moderate intensity physical activity, such as brisk walking, daily or at least 3-4 times weekly BATHING Do not submerge the site into water (bath tub, hot tub, swimming pool) for 1 week. This can be a source for infection into the blood stream. You may shower after 24 hours SITE CARE: After 24 hours, you may remove the dressing and leave the site open to air. Keep the site clean and dry. Clean gently and pat dry. You can expect bruising and tenderness that gradually resolve within a week or two. Return to work as instructed per your physician Resume driving as instructed per physician Keep all scheduled follow up appointments Resume medications as instructed IMPORTANT: If prescribed a Platelet Aggregation Inhibitor such as, Plavix, Brilinta or Effient: Duration of therapy is minimum one year These medications are often used in combination with Aspirin in prevention of future heart attacks Never discontinue unless consult with your Sweatband Cutting Machine Operator STROKE (CVA) Risk factors for a stroke are: Age, cigarette smoking, diabetes, excessive alcohol consumption, family history, high blood pressure, overweight, physical inactivity, prior stroke, heart attack, diagnosis of carotid artery stenosis or other artery disease. Warning signs: Sudden numbness or weakness of the face, arm or leg; especially on one side of the body, sudden confusion, trouble speaking or understanding, sudden trouble seeing in one or both eyes, sudden trouble walking, dizziness, loss of balance or coordination, sudden severe headache with no cause. Call 911 or go to the Emergency Room. CONGESTIVE HEART FAILURE: If you have been diagnosed with Congestive Heart Failure (CHF) and your symptoms return, make an appointment with your physician Weigh yourself daily. Notify your physician if you have a weight gain of two or more pounds in one day or five or more pounds in one week. If you experience any difficulty breathing, please call 911 BLEEDING: Although the risk of bleeding is minimal, it can happen. If you have any bleeding from the site, apply firm pressure above the puncture site for 10-15 minutes. If the bleeding does not stop, continue manual pressure and call 911 Contact your physician if: You develop a fever greater than 101 degrees Fahrenheit Your site becomes reddened or has any drainage You have an increase in pain or burning at the site or if a large knot forms at the site. If you experience chest pain, shortness of breath, dizziness, or extreme tiredness, stop the activity and rest. Please notify your physicians office if you experience any of these symptoms and they are not relieved by rest please call 911! [facility]: [facility] Care Provider[facility] - 12/26/17 1:30 pm
--- NOTE | 2017-12-22 19:25 | Discharge Summary ---
Orders not resulted at time of discharge: Pending orders 12/21/17 12:19 CL Cardiac Catheterization [CL] Routine 12/21/17 14:16 ECG 12 lead ECG [ECG] Stat 12/22/17 07:00 ECG 12 lead ECG [ECG] Routine Date of Encounter: 12/22/17 Time of Encounter: 14:00 - Discharge Diagnosis (1) Acute coronary syndrome Priority: Primary Status: Acute Assessment and Plan: 62 year old man with a history of coronary artery disease status post 2 stents, hypertension and diabetes who has been seen here and [facility] on and off over the past number of years for intermittent chest pain. He was admitted earlier this year in March for chest pain episode and MD was ruled out and also last year where he had a stress test done with negative findings. He presents now complaining of chest pain that started at about 10 PM while he was outside walking with a heavy bag on his back. He states that initially he thought it might have to do with the cold wind causing chest tightness so he sat down to rest which relieved his pain however when he resumed walking again it recurred. He was assessed with atypical chest pain and seen by cardiology . Cardiology recommended an echo which came back showing new wall motion abnormalities. He was therefore assessed as ACS with unstable angina, and he had a C with drug eluting stent placed in mid LAD. He will continue aspirin, plavix, statin and aggressive risk factor modification. He was also seen by psychiatry and due ti the fact that he has active suicidal ideation, he has been pink slipped and will be trnasferred to inpatient psych at the [facility]. 35minutes was spent discharging this patient (2) Coronary artery disease Priority: Primary Status: Chronic Qualifiers: Coronary Disease-Associated Artery/Lesion type: [place] artery [place] vs. 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 Diabetes mellitus complication status: with kidney complications Diabetes mellitus complication detail: with chronic kidney disease Chronic kidney disease stage: stage 3 (moderate) Qualified Code(s): E11.22 - Type 2 diabetes mellitus with diabetic chronic kidney disease; N18.3 - Chronic kidney disease, stage 3 (moderate); Z79.4 - MCFP (current) use of insulin (4) Hypertension Priority: Primary Status: Chronic Qualifiers: Hypertension type: essential hypertension Qualified Code(s): I10 - Essanita tial (primary) hypertension (5) Anemia Priority: Primary Status: Chronic Qualifiers: Anemia type: iron deficiency Iron deficiency anemia type: inadequate dietary iron intake Qualified Code(s): D50.8 - Other iron deficiency anemias (6) Chest pain Priority: Primary Status: Acute Qualifiers: Chest pain type: unspecified Qualified Code(s): R07.9 - Chest pain, unspecified (7) Substance use disorder Priority: Primary Status: Acute (8) DVT prophylaxis Priority: Primary Status: Acute (9) Suicidal thoughts Priority: Primary Status: Acute Hospital course: Mr. Suero is a 62 year old male - Time Spent with Patient Total time spent providing and/or coordinating discharge services: - Discharge Medications Prescriptions: Aspirin 81 mg PO DAILY 30 Days #30 tab.chew Clopidogrel [Plavix] 75 mg PO DAILY 30 Days #30 tablet Metoprolol [Lopressor] 25 mg PO BID 30 Days #60 tablet Home Medications: Acetaminophen [Non-Aspirin] 650 mg PO Q8H PRN 12/20/17 [History] Dextrose/Vitamin D3 [Trueplus Glucose 4 gm Tab Chew] 4 tab PO DAILY PRN 12/20/17 [History] Gabapentin [Neurontin] 300 mg PO TID PRN 12/20/17 [History] Insulin ASPART [NovoLOG] 10 unit SQ TID 12/20/17 [History] Insulin Glargine,Hum.rec.anlog [Lantus Solostar] 43 unit SQ DAILY 12/20/17 [History] Lisinopril [Zestril] 5 mg PO HS 12/20/17 [History] Melatonin 6 mg PO HS 12/20/17 [History] Multivit-Min/FA/Lycopen/Lutein [Centrum Silver Men Tablet] 1 each PO QAM 12/20/17 [History] Omeprazole [PriLOSEC] 20 mg PO DAILY 12/20/17 [History] Sertraline [Zoloft] 100 mg PO DAILY 12/20/17 [History] Sildenafil Citrate 100 mg PO DAILY PRN 12/20/17 [History] Simvastatin [Zocor] 20 mg PO QPM 12/20/17 [History] hydrOXYzine HCl [Hydroxyzine HCl] 25 mg PO DAILY PRN 12/20/17 [History] metFORMIN [Glucophage] 1,000 mg PO QPM 12/20/17 [History] Aspirin 81 mg PO DAILY 30 Days #30 tab.chew 12/22/17 [Rx] Clopidogrel [Plavix] 75 mg PO DAILY 30 Days #30 tablet 12/22/17 [Rx] Metoprolol [Lopressor] 25 mg PO BID 30 Days #60 tablet 12/22/17 [Rx] Allergies/Adverse Reactions: Allergy/AdvReac Type Severity Reaction Status Date / Time Amoxicillin [From Augmentin] Allergy Mild Rash Verified 12/20/17 10:47 clavulanic acid Allergy Mild Rash Verified 12/20/17 10:47 [From Augmentin] Date of admission: 12/20/17 02:58 [facility] care physician: [facility] Consults: 12/20/17 07:50 Consult to [employer] [CONS] Routine Reason for SW Consult: PATIENT STATES HE IS HOMELESS 12/20/17 11:31 Consult to Cardiology [CONS] Routine Comment: Consulting Provider: Cardiology Sisi Reason for Consult: Chest pain Time Notified: 11:31 Call Completed: Yes 12/21/17 10:19 Consult to Psychiatry [CONS] Routine Consulting Provider: Psychiatry Sisi Reason consult: Other Other reason and/or additional details: SI 12/21/17 14:16 Consult to Cardiac Rehabilitation-Phase1 [CONS] Routine Comment: Reason for Consult: AMI Call Completed: Yes Consult to Nurse Navigator [CONS] Routine Comment: - Constitutional Vitals: Temp Pulse Resp BP Pulse Ox 97.7 F 60 12 141/78 97 12/22/17 10:56 12/22/17 10:56 12/22/17 10:56 12/22/17 10:56 12/22/17 10:56 Exam: Gen - Awake, alert, oriented x 3, no acute distress HEENT - NCAT, PERRLA, EOMI, hearing grossly intact, oropharynx benign CV - RRR, normal S1 and S2, no M/R/G, no BLE edema Resp - Normal WOB, CTAB, no W/R/R GI - Soft, NT/ND, no masses, normal bowel sounds, Skin - Warm, dry, no rashes/lesions/ulcers - Patient Status Disposition: Transfer Psychiatric Hosp Condition: Good - Discharge Instructions Instructions: Metoprolol (By mouth), Aspirin (By mouth), Clopidogrel (By mouth), Chest Pain (DC), Right Heart Catheterization (DC), Coronary Intravascular Stent Placement (DC), Diabetes Mellitus Type 2 in Adults (DC), Chronic Hypertension (DC), Anemia (GEN) Follow Up With: [facility] [Primary Care Provider] - 12/26/17 1:30 pm Additional Instructions: RISK FACTORS: STOP SMOKING: If you smoke, STOP. Smoking or tobacco use significantly increases your risk of heart disease because nicotine causes the arteries to narrow or constrict. It also causes fats to stick to the artery. Your chances of having a heart attack are greatly increased if you continue to smoke. For more information, call the education line for smoking cessation 9-741-DIUBHJT EAT A LOW FAT/CHOLESTEROL/SODIUM DIET: This diet may help reduce your chances of having a heart attack. LIFTING: Avoid lifting anything more than 10 pounds for 5-7 days Prior to straining, laughing, sneezing and/or coughing, apply manual pressure directly over insertion site. ACTIVITY: You may walk or climb stairs as tolerated You can resume sexual activity as tolerated In general, you are encouraged to engage in a minimum of 30 minutes or more of moderate intensity physical activity, such as brisk walking, daily or at least 3-4 times weekly BATHING Do not submerge the site into water (bath tub, hot tub, swimming pool) for 1 week. This can be a source for infection into the blood stream. You may shower after 24 hours SITE CARE: After 24 hours, you may remove the dressing and leave the site open to air. Keep the site clean and dry. Clean gently and pat dry. You can expect bruising and tenderness that gradually resolve within a week or two. Return to work as instructed per your physician Resume driving as instructed per physician Keep all scheduled follow up appointments Resume medications as instructed IMPORTANT: If prescribed a Platelet Aggregation Inhibitor such as, Plavix, Brilinta or Effient: Duration of therapy is minimum one year These medications are often used in combination with Aspirin in prevention of future heart attacks Never discontinue unless consult with your German Instructor STROKE (CVA) Risk factors for a stroke are: Age, cigarette smoking, diabetes, excessive alcohol consumption, family history, high blood pressure, overweight, physical inactivity, prior stroke, heart attack, diagnosis of carotid artery stenosis or other artery disease. Warning signs: Sudden numbness or weakness of the face, arm or leg; especially on one side of the body, sudden confusion, trouble speaking or understanding, sudden trouble seeing in one or both eyes, sudden trouble walking, dizziness, loss of balance or coordination, sudden severe headache with no cause. Call 911 or go to the Emergency Room. CONGESTIVE HEART FAILURE: If you have been diagnosed with Congestive Heart Failure (CHF) and your symptoms return, make an appointment with your physician Weigh yourself daily. Notify your physician if you have a weight gain of two or more pounds in one day or five or more pounds in one week. If you experience any difficulty breathing, please call 911 BLEEDING: Although the risk of bleeding is minimal, it can happen. If you have any bleeding from the site, apply firm pressure above the puncture site for 10-15 minutes. If the bleeding does not stop, continue manual pressure and call 911 Contact your physician if: You develop a fever greater than 101 degrees Fahrenheit Your site becomes reddened or has any drainage You have an increase in pain or burning at the site or if a large knot forms at the site. If you experience chest pain, shortness of breath, dizziness, or extreme tiredness, stop the activity and rest. Please notify your physicians office if you experience any of these symptoms and they are not relieved by rest please call 911!
--- NOTE | 2017-12-23 21:54 | Electrocardiograph Report ---
[address] [address] Test Date: 2017-12-19 Pat Name: Reyes Suero Department: EXAM4 Room: 2NE20 Gender: M Senior Clinician: : [id number] Requested By: Hira Berrios Order Number: [id number] Reading MD: Suzi Vance Measurements Intervals Hector Rate: 64 P: 64 WI: 187 QRS: -72 QRSD: 104 T: 28 QT: 434 QTc: 448 Interpretive Statements Sinus rhythm Left anterior fascicular block Abnormal R-wave progression, late transition Electronically Signed On 12-23-2017 21:53:09 EDT by Suzi Vance
== END 2017-12-22 19:42 ==
LOC: 3BNU 23:29 → EMEROOARM 23:29 → SUATTDRO 12-20 02:58 → 3BNU 12-20 04:12 → 2NENU 12-21 17:33
PROVIDERS: ADMIT Internal Medicine; ATTEND Student in an Organized Health Care Education/Training Program

== ENCOUNTER 2019-07-30 13:40 | Observation (INO) ==
[2019-07-30] MEDS ORDERED: *HR* Dextrose 50 % in Water (Syg) 50 ML SYRINGE IVP ONE ×3 (13:49→17:52)
[2019-07-30] MEDS ORDERED: *HR* Dextrose 50 % in Water (Syg) 50 ML SYRINGE ONE ×2 (13:50→16:26)
[2019-07-30] MEDS ORDERED: D10% in Water 500 ML IVC SCH (14:00)
[2019-07-30 14:25] LABS: Basophils % 0.4 %; Eosinophils % 0.1 %; Hemoglobin 12.1 g/dL (12.9-16.9); Immature Granulocytes % 0.5 % (0-4)
[2019-07-30 14:27] LABS: Basophils # 0.1 K/mcL (0.0-0.2); Immature Platelets 6.5 % (1.1-6.1); Lymphocytes # 1.1 K/mcL (0.6-4.6); Lymphocytes % 8.2 %; Mean Corpuscular HGB Conc 30.3 g/dL (31.6-35.5); Mean Corpuscular Hemoglobin 18.6 pg (28.0-33.3); Mean Corpuscular Volume 61.4 fL (83.0-100.0); Monocytes # 1.2 K/mcL (0.0-1.3); Monocytes % 8.4 %; Neutrophils # 11.3 K/mcL (1.6-8.9); Platelet Count 159 K/mcL (140-400); Red Blood Count 6.51 M/mcL (4.19-5.50); Red Cell Distribution Width 18.7 % (11.5-14.5); Segmented Neutrophils % 82.4 %; White Blood Count 13.7 K/mcL (4.3-11.1)
[2019-07-30 14:57] LABS: Acetaminophen < 10 mcg/mL (10-20); Alanine Aminotransferase 21 Units/L (7-52); Albumin 4.7 g/dL (3.5-5.7); Albumin/Globulin Ratio 1.6 (1.1-2.2); Alkaline Phosphatase 88 Units/L (34-104); Aspartate Amino Transferase 29 Units/L (13-39); BUN/Creatinine Ratio 21 (6-26); Bilirubin,Direct 0.4 mg/dL (0.0-0.2); Bilirubin,Indirect 1.6 mg/dL (0.0-1.0); Blood Urea Nitrogen 30 mg/dL (8-23); Calcium 9.9 mg/dL (8.6-10.3); Carbon Dioxide 23 mEq/L (23-29); Chloride 106 mEq/L (98-107); Creatine Kinase 290 Units/L (30-223); Ethanol < 10 mg/dL (Less than 10); Glucose 46 mg/dL (70-105); Osmolality,Calculated 291 (280-300); Salicylate < 2.5 mg/dL (15.0-30.0); Sodium 139 mEq/L (136-145); Total Protein 7.7 g/dL (6.4-8.9); Troponin I < 0.03 ng/mL (< 0.04); eGFR For African Americans > 60 (> 60); eGFR For Non-African Americans 50 (> 60)
[2019-07-30 15:13] LABS: Anisocytosis 1+ (Not Present); Hypochromasia Present (Not Present); Microcytosis Present (Not Present); Platelet Estimate Normal (Normal)
[2019-07-30 16:45] LABS: BUN/Creatinine Ratio 21 (6-26); Blood Urea Nitrogen 29 mg/dL (8-23); Calcium 9.3 mg/dL (8.6-10.3); Carbon Dioxide 27 mEq/L (23-29); Chloride 106 mEq/L (98-107); Glucose 53 mg/dL (70-105); Osmolality,Calculated 289 (280-300); Potassium 3.9 mEq/L (3.5-5.1); Sodium 138 mEq/L (136-145); eGFR For African Americans > 60 (> 60); eGFR For Non-African Americans 51 (> 60)
[2019-07-30 17:11] LABS: Bilirubin,Urine Negative (Negative); Blood,Urine Negative (Negative); Clarity,Urine Clear (Clear); Color,Urine Yellow (Yellow); Glucose,Urine (UA) 250 mg/dL (Normal); Ketones,Urine Trace mg/dL (Negative); Leukocyte Esterase,Urine Negative (Negative); Nitrite,Urine Negative (Negative); PH,Urine 5.5 pH Units (5.0-8.0); Protein,Urine 30 mg/dL (Neg-Trace); Specific Gravity,Urine 1.021 (1.010-1.025); Urobilinogen,Urine Normal (Normal)
[2019-07-30] MEDS: D10% in Water 500 ML IVC SCH ×2 (17:11→18:44)
[2019-07-30 17:17] LABS: Bacteria,Urine None Seen per hpf (None-Few); Hyaline Casts,Urine None Seen per lpf (None-Few); RBC,Urine 0-3 per hpf (0-3); Squamous Epithelial Cell,Urine None Seen per lpf (None-Few); WBC,Urine 0-3 per hpf (0-3)
[2019-07-30 17:20] LABS: Amphetamine Screen,Urine Negative ng/mL (Cutoff=1000); Barbiturate Screen,Urine Negative ng/mL (Cutoff=200); Benzodiazepines Screen,Urine Negative ng/mL (Cutoff=200); Cannabinoid Screen,Urine Negative ng/mL (Cutoff = 50); Cocaine Screen,Urine Positive ng/mL (Cutoff= 300); Opiate Screen,Urine Negative ng/mL (Cutoff=300); Phencyclidine Screen,Urine Negative ng/mL (Cutoff=25)
[2019-07-30] MEDS ORDERED: Ondansetron 4 MG/2 ML VIAL IVP PRN (17:57)
[2019-07-30] MEDS ORDERED: Naloxone 0.4 MG/ML INJ IVP PRN (17:57)
[2019-07-30] MEDS ORDERED: D5% in Water 1,000 ML IVC PRN (17:57)
[2019-07-30] MEDS ORDERED: Dextrose Gel 15 GM/37.5 ML TUBE PO PRN ×2 (17:57)
[2019-07-30] MEDS ORDERED: *HR* Dextrose 50 % in Water (Syg) 50 ML SYRINGE IVP PRN (17:57)
[2019-07-30] MEDS ORDERED: Acetaminophen 325 MG TABLET PO PRN (17:57)
[2019-07-30] MEDS ORDERED: Melatonin 3 MG TABLET PO PRN (18:00)
[2019-07-30] MEDS ORDERED: hydrOXYzine pamoate 25 MG CAPSULE PO PRN (18:00)
[2019-07-30] MEDS: Gabapentin 300 MG CAPSULE PO SCH (20:36)
[2019-07-31] MEDS ORDERED: Insulin LISPRO 300 UNITS/3 ML VIAL SQ ONE (00:01)
[2019-07-31 03:24] LABS: Basophils # 0.1 K/mcL (0.0-0.2); Basophils % 0.6 %; Eosinophils # 0.2 K/mcL (0.0-0.6); Eosinophils % 2.6 %; Hematocrit 38.1 % (37.5-50.1); Hemoglobin 11.4 g/dL (12.9-16.9); Immature Granulocytes % 0.3 % (0-4); Immature Platelets 5.6 % (1.1-6.1); Lymphocytes # 1.7 K/mcL (0.6-4.6); Lymphocytes % 19.2 %; Mean Corpuscular HGB Conc 29.9 g/dL (31.6-35.5); Mean Corpuscular Hemoglobin 18.4 pg (28.0-33.3); Mean Corpuscular Volume 61.7 fL (83.0-100.0); Mean Platelet Volume 10.9 fL (9.4-12.4); Monocytes # 1.1 K/mcL (0.0-1.3); Monocytes % 12.6 %; Neutrophils # 5.7 K/mcL (1.6-8.9); Platelet Count 140 K/mcL (140-400); Red Blood Count 6.18 M/mcL (4.19-5.50); Red Cell Distribution Width 17.9 % (11.5-14.5); Segmented Neutrophils % 64.7 %; White Blood Count 8.8 K/mcL (4.3-11.1)
[2019-07-31 03:38] LABS: BUN/Creatinine Ratio 19 (6-26); Blood Urea Nitrogen 27 mg/dL (8-23); Calcium 8.7 mg/dL (8.6-10.3); Carbon Dioxide 23 mEq/L (23-29); Chloride 107 mEq/L (98-107); Chol/HDL Ratio 2.9 (0-4.9); Cholesterol 115 mg/dL (< 200); Glucose 259 mg/dL (70-105); HDL Cholesterol 40 mg/dL (40-59); LDL Cholesterol,Calculated 63 mg/dL (0-99); Magnesium 1.9 mg/dL (1.6-2.6); Osmolality,Calculated 296 (280-300); Potassium 4.3 mEq/L (3.5-5.1); Sodium 136 mEq/L (136-145); Triglycerides 60 mg/dL (< 150); eGFR For African Americans > 60 (> 60); eGFR For Non-African Americans 50 (> 60)
[2019-07-31 03:40] LABS: Iron 65 mcg/dL (65-175); Platelet Estimate Normal (Normal)
[2019-07-31 03:41] LABS: Anisocytosis 1+ (Not Present); Microcytosis Present (Not Present)
[2019-07-31 03:58] LABS: Ferritin 85 ng/mL (20-250)
[2019-07-31] MEDS: *HR* Heparin 5,000 UNIT/ML VIAL SQ SCH ×2 (05:37→18:04)
[2019-07-31] MEDS ORDERED: Insulin LISPRO 300 UNITS/3 ML VIAL SQ SCH ×2 (06:00→21:00)
[2019-07-31] MEDS: Aspirin Enteric Coated 81 MG Tablet PO SCH (07:52)
[2019-07-31] MEDS: Fluticasone Propionate Nasal 50 MCG/SPRAY BOTTLE NS SCH (07:52)
[2019-07-31] MEDS: Gabapentin 300 MG CAPSULE PO SCH ×3 (07:53→20:05)
[2019-07-31 08:34] LABS: Estimated Average Glucose 189 mg/dl
[2019-07-31 09:08] LABS: Mean Corpuscular Hemoglobin 18.7 pg (28.0-33.3)
[2019-07-31 09:10] LABS: Hematocrit 38.4 % (37.5-50.1); Hemoglobin 11.6 g/dL (12.9-16.9); Immature Platelets 5.6 % (1.1-6.1); Mean Corpuscular HGB Conc 30.2 g/dL (31.6-35.5); Mean Corpuscular Volume 61.8 fL (83.0-100.0); Mean Platelet Volume 10.3 fL (9.4-12.4); Platelet Count 142 K/mcL (140-400); Red Blood Count 6.21 M/mcL (4.19-5.50); Red Cell Distribution Width 17.7 % (11.5-14.5); White Blood Count 7.6 K/mcL (4.3-11.1)
[2019-07-31 09:27] LABS: Acetaminophen < 10 mcg/mL (10-20); Alanine Aminotransferase 19 Units/L (7-52); Albumin 3.8 g/dL (3.5-5.7); Albumin/Globulin Ratio 1.5 (1.1-2.2); Alkaline Phosphatase 73 Units/L (34-104); Aspartate Amino Transferase 26 Units/L (13-39); BUN/Creatinine Ratio 19 (6-26); Bilirubin,Direct 0.4 mg/dL (0.0-0.2); Bilirubin,Indirect 1.6 mg/dL (0.0-1.0); Blood Urea Nitrogen 27 mg/dL (8-23); Calcium 8.9 mg/dL (8.6-10.3); Carbon Dioxide 25 mEq/L (23-29); Chloride 107 mEq/L (98-107); Globulin 2.5 g/dL (2.4-3.5); Glucose 197 mg/dL (70-105); Osmolality,Calculated 297 (280-300); Potassium 4.1 mEq/L (3.5-5.1); Sodium 138 mEq/L (136-145); Total Protein 6.3 g/dL (6.4-8.9); eGFR For African Americans > 60 (> 60); eGFR For Non-African Americans 50 (> 60)
[2019-07-31 09:59] LABS: Eosinophils # 0.6 K/mcL (0.0-0.6); Lymphocytes # 1.2 K/mcL (0.6-4.6); Monocytes # 0.5 K/mcL (0.0-1.3); Neutrophils # 5.3 K/mcL (1.6-8.9); Platelet Estimate Normal (Normal)
[2019-07-31 10:00] LABS: Anisocytosis 1+ (Not Present); Basophilic Stippling 1+ (Not Present); Hypochromasia Present (Not Present); Poikilocytosis 1+ (Not Present)
[2019-07-31] MEDS: Insulin LISPRO 300 UNITS/3 ML VIAL SQ SCH ×3 (11:11→18:03)
[2019-07-31] MEDS: D10% in Water 500 ML IVC SCH (23:03)
[2019-08-01] MEDS: *HR* Heparin 5,000 UNIT/ML VIAL SQ SCH (05:43)
[2019-08-01] MEDS ORDERED: Insulin LISPRO 300 UNITS/3 ML VIAL SQ SCH (07:30)
[2019-08-01] MEDS: Aspirin Enteric Coated 81 MG Tablet PO SCH (07:51)
[2019-08-01] MEDS: Gabapentin 300 MG CAPSULE PO SCH ×2 (07:51→13:43)
[2019-08-01] MEDS: Fluticasone Propionate Nasal 50 MCG/SPRAY BOTTLE NS SCH (07:54)
[2019-08-01] MEDS: Insulin LISPRO 300 UNITS/3 ML VIAL SQ SCH ×2 (09:17→13:43)
[2019-08-01] MEDS ORDERED: Insulin DETEMIR 100 UNIT/ML X5UNITS SQ ONE (13:58)
[2019-08-01 15:30] VITALS: BP 131/81
[2019-08-01] MEDS ORDERED: Insulin DETEMIR 100 UNIT/ML X5UNITS SQ SCH (21:00)
[2019-08-02] MEDS ORDERED: Insulin DETEMIR 100 UNIT/ML X5UNITS SQ SCH (09:00)
== END 2019-08-01 16:04 ==
LOC: EMEROOARM 13:40 → 2NNU 13:40 → SUATTDRO 18:43 → 2NNU 19:35 → 3BNU 07-31 09:39
PROVIDERS: ADMIT Internal Medicine; ATTEND Pharmacist

== ENCOUNTER 2019-11-11 16:10 | Observation (INO) ==
[2019-11-11] MEDS ORDERED: Isovue-370 500 ML BOTTLE IVP ONE (16:22)
[2019-11-11 16:47] LABS: Prothrombin Time 11.5 Seconds (9.4-12.1)
[2019-11-11 16:48] LABS: VBG HCO3 23 mEq/L (21-27); VBG PCO2 51 mmHg (41-51); VBG PH 7.27 pH Units (7.32-7.42); VBG PO2 49 mmHg (25-50)
[2019-11-11 16:49] LABS: Eosinophils % 2.3 %; Immature Granulocytes % 0.6 % (0-4)
[2019-11-11 16:50] LABS: Activated Partial Thrombo Time 47.4 Seconds (26.0-36.0)
[2019-11-11 16:51] LABS: Basophils # 0.1 K/mcL (0.0-0.2); Basophils % 0.9 %; Eosinophils # 0.3 K/mcL (0.0-0.6); Hematocrit 48.7 % (37.5-50.1); Hemoglobin 14.4 g/dL (12.9-16.9); Immature Platelets 8.3 % (1.1-6.1); Lymphocytes # 1.7 K/mcL (0.6-4.6); Lymphocytes % 15.2 %; Mean Corpuscular HGB Conc 29.6 g/dL (31.6-35.5); Mean Corpuscular Hemoglobin 18.5 pg (28.0-33.3); Mean Corpuscular Volume 62.6 fL (83.0-100.0); Monocytes % 9.3 %; Neutrophils # 7.9 K/mcL (1.6-8.9); Platelet Count 178 K/mcL (140-400); Red Blood Count 7.78 M/mcL (4.19-5.50); Segmented Neutrophils % 71.7 %
[2019-11-11 17:25] LABS: Large Platelets Present (Not Present); Microcytosis Present (Not Present); Platelet Estimate Normal (Normal)
[2019-11-11 17:28] LABS: Alanine Aminotransferase 28 Units/L (7-52); Albumin 4.9 g/dL (3.5-5.7); Albumin/Globulin Ratio 1.6 (1.1-2.2); Alkaline Phosphatase 96 Units/L (34-104); Aspartate Amino Transferase 28 Units/L (13-39); BUN/Creatinine Ratio 19 (6-26); Bilirubin,Direct 0.2 mg/dL (0.0-0.2); Bilirubin,Indirect 0.7 mg/dL (0.0-1.0); Bilirubin,Total 0.9 mg/dL (0.3-1.0); Blood Urea Nitrogen 30 mg/dL (8-23); C-Reactive Protein < 5 mg/L (Less than 10); Calcium 9.3 mg/dL (8.6-10.3); Carbon Dioxide 21 mEq/L (23-29); Chloride 106 mEq/L (98-107); Glucose 203 mg/dL (70-105); Magnesium 2.4 mg/dL (1.6-2.6); Osmolality,Calculated 288 (280-300); Potassium 6.7 mEq/L (3.5-5.1); Sodium 133 mEq/L (136-145); Total Protein 7.9 g/dL (6.4-8.9); eGFR For African Americans 53 (> 60); eGFR For Non-African Americans 44 (> 60)
[2019-11-11 17:30] LABS: Bilirubin,Urine Small (Negative); Blood,Urine Negative (Negative); Clarity,Urine Clear (Clear); Color,Urine Yellow (Yellow); Glucose,Urine (UA) Normal (Normal); Ketones,Urine Negative (Negative); Leukocyte Esterase,Urine Negative (Negative); Nitrite,Urine Negative (Negative); PH,Urine 5.5 pH Units (5.0-8.0); Protein,Urine 30 mg/dL (Neg-Trace); Specific Gravity,Urine >= 1.030 (1.010-1.025); Urobilinogen,Urine Normal (Normal)
[2019-11-11] MEDS ORDERED: 0.9 % Sodium Chloride 1,000 ML IVC ONE (17:30)
[2019-11-11] MEDS ORDERED: Insulin Human Regular 10 UNIT in 0.9 % Sodium Chloride 10 ML IV ONE (17:30)
[2019-11-11] MEDS ORDERED: Ipratropium/Albuterol Neb 3 ML IH ONE (17:30)
[2019-11-11] MEDS ORDERED: *HR* Dextrose 50 % in Water (Vial) 50 ML VIAL IVP PRN ×2 (17:31→21:10)
[2019-11-11 17:34] LABS: Hyaline Casts,Urine Few per lpf (None Seen); Mucus,Urine Few per lpf (None-Few); Squamous Epithelial Cell,Urine Few per hpf (None-Few); WBC,Urine 0-3 per hpf (0-3)
[2019-11-11] MEDS ORDERED: *HR* Dextrose 50 % in Water (Vial) 50 ML VIAL IVP STA (17:35)
[2019-11-11 18:21] LABS: Creatine Kinase 53 Units/L (30-223); Troponin I < 0.03 ng/mL (< 0.04)
[2019-11-11] MEDS ORDERED: *HR* Dextrose 50 % in Water (Vial) 50 ML VIAL ONE (19:38)
[2019-11-11] MEDS ORDERED: *HR* Dextrose 50 % in Water (Vial) 50 ML VIAL IVP ONE (19:38)
[2019-11-11] MEDS ORDERED: Naloxone 0.4 MG/ML INJ IVP PRN (20:13)
[2019-11-11] MEDS ORDERED: 0.9 % Sodium Chloride 1,000 ML IVC SCH (20:15)
[2019-11-11] MEDS ORDERED: D5% in Water 1,000 ML IVC PRN (21:10)
[2019-11-11] MEDS ORDERED: Dextrose Gel 15 GM/37.5 ML TUBE PO PRN ×2 (21:10)
[2019-11-11 21:16] LABS: BUN/Creatinine Ratio 20 (6-26); Blood Urea Nitrogen 28 mg/dL (8-23); Calcium 9.8 mg/dL (8.6-10.3); Carbon Dioxide 21 mEq/L (23-29); Chloride 108 mEq/L (98-107); Glucose 131 mg/dL (70-105); Osmolality,Calculated 289 (280-300); Potassium 4.5 mEq/L (3.5-5.1); Sodium 136 mEq/L (136-145); eGFR For African Americans > 60 (> 60); eGFR For Non-African Americans 50 (> 60)
[2019-11-11] MEDS: *HR* Heparin 5,000 UNIT/ML VIAL SQ SCH (21:51)
[2019-11-12] MEDS: *HR* Heparin 5,000 UNIT/ML VIAL SQ SCH (05:46)
[2019-11-12 06:28] LABS: Eosinophils % 3.5 %
[2019-11-12 06:30] LABS: Basophils # 0.1 K/mcL (0.0-0.2); Basophils % 0.7 %; Eosinophils # 0.3 K/mcL (0.0-0.6); Hematocrit 40.7 % (37.5-50.1); Hemoglobin 12.1 g/dL (12.9-16.9); Immature Granulocytes % 0.5 % (0-4); Immature Platelets 6.5 % (1.1-6.1); Lymphocytes # 1.7 K/mcL (0.6-4.6); Mean Corpuscular HGB Conc 29.7 g/dL (31.6-35.5); Mean Corpuscular Hemoglobin 18.4 pg (28.0-33.3); Monocytes % 11.8 %; Neutrophils # 5.3 K/mcL (1.6-8.9); Platelet Count 138 K/mcL (140-400); Red Blood Count 6.56 M/mcL (4.19-5.50); Red Cell Distribution Width 19.3 % (11.5-14.5); Segmented Neutrophils % 63.5 %; White Blood Count 8.4 K/mcL (4.3-11.1)
[2019-11-12 06:56] LABS: Albumin 3.9 g/dL (3.5-5.7); Albumin/Globulin Ratio 1.5 (1.1-2.2); Bilirubin,Total 0.8 mg/dL (0.3-1.0); Calcium 8.9 mg/dL (8.6-10.3); Globulin 2.6 g/dL (2.4-3.5); Magnesium 2.1 mg/dL (1.6-2.6); Phosphorous 3.2 mg/dL (2.7-4.5); Potassium 4.9 mEq/L (3.5-5.1); Total Protein 6.5 g/dL (6.4-8.9)
[2019-11-12] MEDS ORDERED: Insulin LISPRO 300 UNITS/3 ML VIAL SQ SCH (07:30)
[2019-11-12 07:32] VITALS: BP 123/75
== END 2019-11-12 09:37 | disposition left against medical advice (07) ==
LOC: 2ANU 16:10 → EMEROOARM 16:10 → SUATTDRO 19:16 → 2ANU 20:05
PROVIDERS: ADMIT Student in an Organized Health Care Education/Training Program; ATTEND Pharmacist

== ENCOUNTER 2020-12-26 09:11 | Observation (INO) ==
[2020-12-26] MEDS ORDERED: Isovue-370 500 ML BOTTLE IVP ONE (09:30)
[2020-12-26 10:53] LABS: Basophils % 0.8 %; Hemoglobin 13.6 g/dL (12.9-16.9); Lymphocytes % 17.9 %; Mean Corpuscular Hemoglobin 19.2 pg (28.0-33.3); Mean Corpuscular Volume 63.4 fL (83.0-100.0); Red Cell Distribution Width 18.7 % (11.5-14.5)
[2020-12-26 10:55] LABS: Basophils # 0.1 K/mcL (0.0-0.2); Eosinophils # 0.4 K/mcL (0.0-0.6); Eosinophils % 3.9 %; Immature Granulocytes % 0.4 % (0-4); Immature Platelets 8.5 % (1.1-6.1); Lymphocytes # 1.6 K/mcL (0.6-4.6); Mean Corpuscular HGB Conc 30.2 g/dL (31.6-35.5); Monocytes % 10.9 %; Platelet Count 164 K/mcL (140-400); Segmented Neutrophils % 66.1 %
[2020-12-26 11:00] LABS: INR 1.1; Prothrombin Time 12.2 Seconds (9.4-12.1)
[2020-12-26 11:03] LABS: Activated Partial Thrombo Time 46.4 Seconds (26.0-36.0)
[2020-12-26 11:15] LABS: Alanine Aminotransferase 17 Units/L (7-52); Albumin 4.1 g/dL (3.5-5.7); Albumin/Globulin Ratio 1.5 (1.1-2.2); Alkaline Phosphatase 79 Units/L (34-104); Aspartate Amino Transferase 19 Units/L (13-39); BUN/Creatinine Ratio 16 (6-26); Bilirubin,Direct 0.2 mg/dL (0.0-0.2); Bilirubin,Indirect 0.6 mg/dL (0.0-1.0); Bilirubin,Total 0.8 mg/dL (0.3-1.0); Blood Urea Nitrogen 26 mg/dL (8-23); Carbon Dioxide 28 mEq/L (23-29); Chloride 107 mEq/L (98-107); Globulin 2.8 g/dL (2.4-3.5); Glucose 79 mg/dL (70-105); Osmolality,Calculated 298 (280-300); Potassium 4.4 mEq/L (3.5-5.1); Sodium 142 mEq/L (136-145); Total Protein 6.9 g/dL (6.4-8.9); eGFR For African Americans 51 (> 60); eGFR For Non-African Americans 42 (> 60)
[2020-12-26 11:16] LABS: Troponin I < 0.03 ng/mL (< 0.04)
[2020-12-26] MEDS ORDERED: 0.9 % Sodium Chloride 1,000 ML IV ONE (12:19)
[2020-12-26 13:31] LABS: Bilirubin,Urine Negative (Negative); Blood,Urine Negative (Negative); Clarity,Urine Clear (Clear); Color,Urine Light-Yellow (Yellow); Glucose,Urine (UA) >=1000 mg/dL (Normal); Hyaline Casts,Urine Few per lpf (None Seen); Ketones,Urine Negative (Negative); Leukocyte Esterase,Urine Negative (Negative); Mucus,Urine Few per lpf (None-Few); Nitrite,Urine Negative (Negative); Protein,Urine Trace mg/dL (Neg-Trace); RBC,Urine 0-3 per hpf (0-3); Specific Gravity,Urine > 1.030 (1.010-1.025); Urobilinogen,Urine Normal (Normal); WBC,Urine 0-3 per hpf (0-3)
[2020-12-26 13:37] LABS: Amphetamine Screen,Urine Negative ng/mL (Cutoff=1000); Barbiturate Screen,Urine Negative ng/mL (Cutoff=200); Benzodiazepines Screen,Urine Negative ng/mL (Cutoff=200); Cannabinoid Screen,Urine Negative ng/mL (Cutoff = 50); Cocaine Screen,Urine Negative ng/mL (Cutoff= 300); Opiate Screen,Urine Negative ng/mL (Cutoff=300); Phencyclidine Screen,Urine Negative ng/mL (Cutoff=25)
[2020-12-26] MEDS ORDERED: Ondansetron 4 MG/2 ML VIAL IVP PRN (14:44)
[2020-12-26] MEDS ORDERED: Melatonin 3 MG TABLET PO PRN (14:44)
[2020-12-26] MEDS ORDERED: Dextrose Gel 15 GM/37.5 ML TUBE PO PRN ×2 (14:45)
[2020-12-26] MEDS ORDERED: *HR* Dextrose 50 % in Water (Syg) 50 ML SYRINGE IVP PRN (14:45)
[2020-12-26] MEDS ORDERED: D5% in Water 1,000 ML IVC PRN (14:45)
[2020-12-26] MEDS ORDERED: Ringers Solution, Lactated 1,000 ML IVC SCH (14:45)
[2020-12-26] MEDS: Insulin LISPRO 300 UNITS/3 ML VIAL SUBQ SCH (17:33)
[2020-12-26] MEDS ORDERED: Insulin DETEMIR 100 UNIT/ML X5UNITS SUBQ SCH (21:00)
[2020-12-26] MEDS: Acetaminophen 325 MG TABLET PO PRN (21:38)
[2020-12-27 03:02] LABS: Hematocrit 42.4 % (37.5-50.1); Hemoglobin 12.8 g/dL (12.9-16.9); Immature Platelets 6.3 % (1.1-6.1); Mean Corpuscular HGB Conc 30.2 g/dL (31.6-35.5); Mean Corpuscular Volume 62.9 fL (83.0-100.0); Platelet Count 142 K/mcL (140-400); Red Blood Count 6.74 M/mcL (4.19-5.50); Red Cell Distribution Width 18.5 % (11.5-14.5); White Blood Count 8.3 K/mcL (4.3-11.1)
[2020-12-27 03:28] LABS: BUN/Creatinine Ratio 19 (6-26); Blood Urea Nitrogen 24 mg/dL (8-23); Calcium 8.6 mg/dL (8.6-10.3); Carbon Dioxide 23 mEq/L (23-29); Chloride 103 mEq/L (98-107); Glucose 368 mg/dL (70-105); Osmolality,Calculated 297 (280-300); Phosphorous 2.8 mg/dL (2.7-4.5); Potassium 4.3 mEq/L (3.5-5.1); Sodium 134 mEq/L (136-145); Troponin I < 0.03 ng/mL (< 0.04); eGFR For African Americans > 60 (> 60); eGFR For Non-African Americans 58 (> 60)
[2020-12-27] MEDS: Acetaminophen 325 MG TABLET PO PRN (05:03)
[2020-12-27 06:35] VITALS: TEMP 97.4; O2SAT 97
[2020-12-27] MEDS: Insulin LISPRO 300 UNITS/3 ML VIAL SUBQ SCH (08:21)
[2020-12-27 08:30] VITALS: BP 105/67; PULSE 73
[2020-12-27] MEDS ORDERED: Aspirin Enteric Coated 81 MG Tablet PO SCH (09:00)
== END 2020-12-27 10:43 | disposition home or self-care (01) ==
LOC: SUATTDRO → EMEROOARM 09:11 → 3BNU 09:11 → SUATTDRO 14:52 → 3BNU 16:34
PROVIDERS: ADMIT Internal Medicine; ATTEND Internal Medicine

== ENCOUNTER 2021-04-11 21:39 | Observation (INO) ==
[2021-04-11] MEDS: Nitroglycerin 0.4 MG TAB.SUBL SL PRN ×2 (21:50→22:13)
[2021-04-11 22:09] LABS: Immature Granulocytes % 0.4 % (0-4); White Blood Count 7.6 K/mcL (4.3-11.1)
[2021-04-11 22:11] LABS: Basophils # 0.1 K/mcL (0.0-0.2); Basophils % 0.7 %; Eosinophils # 0.3 K/mcL (0.0-0.6); Eosinophils % 4.3 %; Hematocrit 37.7 % (37.5-50.1); Hemoglobin 11.6 g/dL (12.9-16.9); Immature Platelets 7.4 % (1.1-6.1); Lymphocytes # 1.4 K/mcL (0.6-4.6); Mean Corpuscular HGB Conc 30.8 g/dL (31.6-35.5); Mean Corpuscular Hemoglobin 19.4 pg (28.0-33.3); Monocytes # 0.9 K/mcL (0.0-1.3); Monocytes % 11.4 %; Neutrophils # 4.9 K/mcL (1.6-8.9); Platelet Count 146 K/mcL (140-400); Red Blood Count 5.98 M/mcL (4.19-5.50); Red Cell Distribution Width 18.4 % (11.5-14.5); Segmented Neutrophils % 64.2 %
[2021-04-11 22:31] LABS: BUN/Creatinine Ratio 16 (6-26); Blood Urea Nitrogen 16 mg/dL (8-23); Calcium 8.7 mg/dL (8.6-10.3); Carbon Dioxide 28 mEq/L (23-29); Chloride 106 mEq/L (98-107); Glucose 114 mg/dL (70-105); Osmolality,Calculated 294 (280-300); Potassium 3.5 mEq/L (3.5-5.1); Sodium 141 mEq/L (136-145); eGFR For African Americans > 60 (> 60); eGFR For Non-African Americans > 60 (> 60)
[2021-04-11 22:32] LABS: Troponin I < 0.03 ng/mL (< 0.04)
[2021-04-11 22:39] LABS: Microcytosis Present (Not Present); Platelet Estimate Normal (Normal)
[2021-04-12] MEDS ORDERED: Acetaminophen 325 MG TABLET PO PRN (00:49)
[2021-04-12] MEDS ORDERED: Naloxone 0.4 MG/ML INJ IVP PRN (00:49)
[2021-04-12] MEDS ORDERED: Perflutren Lipid Microsphere 1.3 ML in 0.9 % Sodium Chloride 8.7 ML IVP PRN (01:18)
[2021-04-12] MEDS ORDERED: *HR* Dextrose 50 % in Water (Syg) 50 ML SYRINGE IVP PRN (01:22)
[2021-04-12] MEDS ORDERED: Dextrose Gel 15 GM/37.5 ML TUBE PO PRN ×2 (01:22)
[2021-04-12] MEDS ORDERED: D5% in Water 1,000 ML IVC PRN (01:22)
[2021-04-12 01:37] LABS: Hematocrit 37.5 % (37.5-50.1); Hemoglobin 11.6 g/dL (12.9-16.9); Mean Corpuscular HGB Conc 30.9 g/dL (31.6-35.5)
[2021-04-12 01:39] LABS: Immature Platelets 6.9 % (1.1-6.1); Mean Corpuscular Hemoglobin 19.6 pg (28.0-33.3); Mean Corpuscular Volume 63.5 fL (83.0-100.0); Platelet Count 146 K/mcL (140-400); Red Blood Count 5.91 M/mcL (4.19-5.50); Red Cell Distribution Width 18.2 % (11.5-14.5); White Blood Count 7.8 K/mcL (4.3-11.1)
[2021-04-12 01:45] LABS: Prothrombin Time 11.5 Seconds (9.4-12.1)
[2021-04-12 01:53] LABS: Estimated Average Glucose 186 mg/dl; Hemoglobin A1C 8.1 %
[2021-04-12 02:30] LABS: BUN/Creatinine Ratio 17 (6-26); Blood Urea Nitrogen 18 mg/dL (8-23); Calcium 8.5 mg/dL (8.6-10.3); Carbon Dioxide 24 mEq/L (23-29); Chloride 105 mEq/L (98-107); Chol/HDL Ratio 2.5 (0-4.9); Cholesterol 107 mg/dL (< 200); Glucose 313 mg/dL (70-105); HDL Cholesterol 42 mg/dL (40-59); LDL Cholesterol,Calculated 31 mg/dL (< 100); Magnesium 1.9 mg/dL (1.6-2.6); Osmolality,Calculated 298 (280-300); Sodium 137 mEq/L (136-145); Thyroid Stimulating Hormone 3.688 mcIU/mL (0.340-5.600); Triglycerides 168 mg/dL (< 150); eGFR For African Americans > 60 (> 60); eGFR For Non-African Americans > 60 (> 60)
[2021-04-12 03:05] LABS: Iron 45 mcg/dL (65-175)
[2021-04-12 03:20] LABS: Ferritin 47 ng/mL (20-250)
[2021-04-12 03:29] LABS: Folate > 22.3 ng/mL (3.0-16.0); Vitamin B12 717 pg/mL (250-1100)
[2021-04-12] MEDS ORDERED: Isovue-370 500 ML BOTTLE IVP ONE (03:42)
[2021-04-12 03:52] LABS: Influenza A PCR Negative (Negative); Influenza B PCR Negative (Negative); Resp. Syncytial Virus PCR Negative (Negative); SARS-CoV-2 by PCR (In House) Negative (Negative)
[2021-04-12 03:58] LABS: Amphetamine Screen,Urine Negative ng/mL (Cutoff=1000); Barbiturate Screen,Urine Negative ng/mL (Cutoff=200); Benzodiazepines Screen,Urine Negative ng/mL (Cutoff=200); Cannabinoid Screen,Urine Negative ng/mL (Cutoff = 50); Cocaine Screen,Urine Negative ng/mL (Cutoff= 300); Opiate Screen,Urine Negative ng/mL (Cutoff=300); Phencyclidine Screen,Urine Negative ng/mL (Cutoff=25)
[2021-04-12 04:05] LABS: % Iron Saturation 16 % (20-55); Transferrin 202 mg/dL (203-362)
[2021-04-12] MEDS ORDERED: *HR* LORazepam 0.5 MG TABLET PO PRN (04:25)
[2021-04-12] MEDS ORDERED: Iron Sucrose Complex 400 MG in 0.9 % Sodium Chloride 250 ML IVPB ONE (04:26)
[2021-04-12] MEDS: Regadenoson 0.4 MG/5 ML SYRINGE IVP ONE ×2 (06:30→08:31)
[2021-04-12] MEDS ORDERED: *HR* Enoxaparin 40 MG/0.4 ML SYRINGE SQ SCH (09:00)
[2021-04-12] MEDS ORDERED: Metoprolol XL (24 HR) Succ 25 MG TAB.ER.24H PO SCH (09:00)
[2021-04-12] MEDS ORDERED: Aspirin 81 MG TAB.CHEW PO SCH (09:00)
[2021-04-12] MEDS ORDERED: Insulin LISPRO 300 UNITS/3 ML VIAL SUBQ SCH ×2 (11:30→21:00)
[2021-04-12 11:40] VITALS: BP 146/81; PULSE 79; TEMP 98.1; O2SAT 98
[2021-04-12 12:46] LABS: Troponin I < 0.03 ng/mL (< 0.04)
== END 2021-04-12 12:31 | disposition home or self-care (01) ==
LOC: EMEROOARM 21:39 → 2ANU 21:39 → SUATTDRO 23:27 → 2ANU 04-12 01:00
PROVIDERS: ADMIT Internal Medicine; ATTEND Family Medicine

== ENCOUNTER 2021-10-08 13:05 | Observation (INO) ==
[2021-10-08] MEDS ORDERED: Iopamidol - 370 500 ML MLS IVP ONE (13:19)
[2021-10-08] MEDS ORDERED: 0.9 % Sodium Chloride 1,000 ML IVC ONE (13:22)
[2021-10-08 14:30] LABS: Basophils % 0.6 %; Hematocrit 42.8 % (37.5-50.1); Hemoglobin 13.3 g/dL (12.9-16.9); Mean Corpuscular HGB Conc 31.1 g/dL (31.6-35.5)
[2021-10-08 14:32] LABS: Basophils # 0.1 K/mcL (0.0-0.2); Eosinophils # 0.2 K/mcL (0.0-0.6); Eosinophils % 1.4 %; Immature Granulocytes % 0.3 % (0-4); Immature Platelets 8.2 % (1.1-6.1); Lymphocytes # 1.5 K/mcL (0.6-4.6); Lymphocytes % 13.3 %; Mean Corpuscular Volume 61.2 fL (83.0-100.0); Monocytes # 0.9 K/mcL (0.0-1.3); Monocytes % 7.7 %; Neutrophils # 8.5 K/mcL (1.6-8.9); Platelet Count 148 K/mcL (140-400); Red Blood Count 6.99 M/mcL (4.19-5.50); Red Cell Distribution Width 18.7 % (11.5-14.5); Segmented Neutrophils % 76.7 %; White Blood Count 11.1 K/mcL (4.3-11.1)
[2021-10-08 15:01] LABS: Bilirubin,Urine Negative (Negative); Blood,Urine Negative (Negative); Clarity,Urine Clear (Clear); Color,Urine Yellow (Yellow); Glucose,Urine (UA) 500 mg/dL (Normal); Hyaline Casts,Urine Many per lpf (None Seen); Ketones,Urine Negative (Negative); Leukocyte Esterase,Urine Negative (Negative); Mucus,Urine Few per lpf (None-Few); Nitrite,Urine Negative (Negative); Protein,Urine Trace mg/dL (Neg-Trace); RBC,Urine 0-3 per hpf (0-3); Specific Gravity,Urine 1.019 (1.010-1.025); Squamous Epithelial Cell,Urine Few per hpf (None-Few); Urobilinogen,Urine Normal (Normal); WBC,Urine 0-3 per hpf (0-3)
[2021-10-08 15:15] LABS: Amphetamine Screen,Urine Negative ng/mL (Cutoff=1000); Barbiturate Screen,Urine Negative ng/mL (Cutoff=200); Benzodiazepines Screen,Urine Negative ng/mL (Cutoff=200); Cannabinoid Screen,Urine Negative ng/mL (Cutoff = 50); Cocaine Screen,Urine Negative ng/mL (Cutoff= 300); Opiate Screen,Urine Negative ng/mL (Cutoff=300); Phencyclidine Screen,Urine Negative ng/mL (Cutoff=25)
[2021-10-08] MEDS ORDERED: Insulin Human Regular 10 UNIT in 0.9 % Sodium Chloride 10 ML IV ONE (15:18)
[2021-10-08] MEDS ORDERED: Calcium Gluconate 1,000 MG/10 ML VIAL IVP ONE (15:20)
[2021-10-08 15:58] LABS: Alanine Aminotransferase 27 Units/L (7-52); Albumin 4.8 g/dL (3.5-5.7); Albumin/Globulin Ratio 1.6 (1.1-2.2); Alkaline Phosphatase 92 Units/L (34-104); Aspartate Amino Transferase 31 Units/L (13-39); BUN/Creatinine Ratio 21 (6-26); Bilirubin,Total 1.1 mg/dL (0.3-1.0); Blood Urea Nitrogen 42 mg/dL (8-23); Calcium 9.3 mg/dL (8.6-10.3); Carbon Dioxide 24 mEq/L (23-29); Chloride 98 mEq/L (98-107); Creatine Kinase 240 Units/L (30-223); Ethanol < 10 mg/dL (Less than 10); Glucose 378 mg/dL (70-105); Magnesium 2.1 mg/dL (1.6-2.6); Osmolality,Calculated 296 (280-300); Potassium 7.2 mEq/L (3.5-5.1); Sodium 130 mEq/L (136-145); Total Protein 7.8 g/dL (6.4-8.9); Troponin I < 0.03 ng/mL (< 0.04)
[2021-10-08 16:43] LABS: Calcium 9.6 mg/dL (8.6-10.3)
[2021-10-08] MEDS ORDERED: Naloxone 0.4 MG/ML INJ IVP PRN (17:40)
[2021-10-08] MEDS ORDERED: *HR* Dextrose 50 % in Water (Syg) 50 ML SYRINGE IVP PRN (18:19)
[2021-10-08] MEDS ORDERED: Dextrose Gel 15 GM/37.5 ML TUBE PO PRN ×2 (18:19)
[2021-10-08] MEDS ORDERED: D5% in Water 1,000 ML IVC PRN (18:19)
[2021-10-08] MEDS: 0.9 % Sodium Chloride 1,000 ML IVC SCH (19:32)
[2021-10-08] MEDS ORDERED: Insulin LISPRO 300 UNITS/3 ML VIAL SUBQ SCH (21:00)
[2021-10-08] MEDS ORDERED: Insulin DETEMIR 100 UNIT/ML X5UNITS SUBQ SCH (21:00)
[2021-10-09] MEDS ORDERED: Insulin LISPRO 300 UNITS/3 ML VIAL SUBQ ONE (00:15)
[2021-10-09] MEDS: 0.9 % Sodium Chloride 1,000 ML IVC SCH (01:37)
[2021-10-09 02:15] LABS: Basophils # 0.1 K/mcL (0.0-0.2); Basophils % 0.8 %; Eosinophils # 0.3 K/mcL (0.0-0.6); Eosinophils % 3.9 %; Hematocrit 37.9 % (37.5-50.1); Hemoglobin 11.6 g/dL (12.9-16.9); Immature Granulocytes % 0.1 % (0-4); Immature Platelets 6.2 % (1.1-6.1); Lymphocytes # 1.6 K/mcL (0.6-4.6); Lymphocytes % 21.7 %; Mean Corpuscular HGB Conc 30.6 g/dL (31.6-35.5); Mean Corpuscular Hemoglobin 18.9 pg (28.0-33.3); Mean Corpuscular Volume 61.8 fL (83.0-100.0); Monocytes # 0.8 K/mcL (0.0-1.3); Monocytes % 10.1 %; Neutrophils # 4.7 K/mcL (1.6-8.9); Platelet Count 144 K/mcL (140-400); Red Blood Count 6.13 M/mcL (4.19-5.50); Red Cell Distribution Width 18.2 % (11.5-14.5); Segmented Neutrophils % 63.4 %; White Blood Count 7.4 K/mcL (4.3-11.1)
[2021-10-09 02:27] LABS: Calcium 8.5 mg/dL (8.6-10.3); Phosphorous 2.8 mg/dL (2.7-4.5); Potassium 4.5 mEq/L (3.5-5.1)
[2021-10-09 02:39] LABS: Thyroid Stimulating Hormone 3.45 mcIU/mL (0.340-5.600)
[2021-10-09 03:21] LABS: Anisocytosis 1+ (Not Present); Platelet Estimate Normal (Normal)
[2021-10-09 03:22] LABS: Large Platelets Present (Not Present); Microcytosis Present (Not Present)
[2021-10-09 03:32] LABS: Estimated Average Glucose 180 mg/dl; Hemoglobin A1C 7.9 %
[2021-10-09] MEDS: Insulin LISPRO 300 UNITS/3 ML VIAL SUBQ SCH ×2 (08:51→12:19)
[2021-10-09] MEDS ORDERED: Aspirin 81 MG TAB.CHEW PO SCH (09:00)
[2021-10-09 11:44] LABS: Uric Acid 6.3 mg/dL (2.3-7.6)
[2021-10-09 12:11] VITALS: BP 164/81; PULSE 61; TEMP 98; O2SAT 97
[2021-10-09] MEDS ORDERED: hydrALAZINE 25 MG TABLET PO SCH (14:51)
[2021-10-09] MEDS ORDERED: amLODIPine 5 MG TABLET PO SCH (15:00)
[2021-10-09 15:21] LABS: Sodium, Urine 150.5 mEq/L
== END 2021-10-09 15:45 | disposition left against medical advice (07) ==
LOC: 2ANU 13:05 → EMEROOARM 13:05 → 2ANU 18:56
PROVIDERS: ADMIT Internal Medicine; ATTEND Internal Medicine